=== PATIENT | male | born 1970 | race Two or more races ===

== ENCOUNTER → 2020-12-15 13:04 | Outpatient (BNVA) | payer MEDICARE, MEDICAID, SELFPAY | PROVIDERS: Visit Provider Internal Medicine | DX: J44.9 Chronic obstructive pulmonary disease, unspecified (principal); F17.200 Nicotine dependence, unspecified, uncomplicated | CPT/HCPCS: 99212 ==

== ENCOUNTER 2021-04-20 08:34 | Outpatient (REF) | payer MEDICARE, MEDICAID, SELFPAY ==
[2021-04-20 09:52] LABS: Alanine Aminotransferase 15 U/L (0-40); Albumin Level 4.5 g/dL (3.5-5.0); Alkaline Phosphatase 89 U/L (39-117); Anion Gap 12 (12-20); Aspartate Amino Transferase 17 U/L (5-37); Bilirubin Total 0.4 mg/dL (0.0-1.0); Blood Urea Nitrogen 16 mg/dL (9-16); Calcium 9.4 mg/dL (8.4-10.2); Carbon Dioxide 27 mmol/L (22-29); Chloride 108 mmol/L (96-108); Cholesterol 162 mg/dL; Estimated Glomerular Filt Rate > 60; Glucose Fasting 91 mg/dL (60-99); HDL Cholesterol 49 mg/dL; LDL Cholesterol Calculated 104 mg/dl; Potassium 4.5 mmol/L (3.3-5.1); Sodium 142 mmol/L (135-145); Total Protein 7.1 g/dL (6.5-8.0); Triglycerides 46 mg/dL
[2021-04-20 10:08] LABS: ~HepC Num1 0.06 S/CO (0.00-0.79); ~Hepatitis C Antibody Nonreactive (Nonreactive)
[2021-04-20 10:13] LABS: Hepatitis B Surface Antigen Negative (Negative)
[2021-04-20 10:15] LABS: HIV AB/AG Nonreactive (Nonreactive); HIV Num 1 0.04 S/CO (0.00-0.99)
[2021-04-20 10:33] LABS: Syphilis Screen Nonreactive (Nonreactive)
[2021-04-20 11:03] LABS: CT PCR NOT DETECTED (Not Detect.); NG PCR NOT DETECTED (Not Detect.)
== END 2021-04-20 08:35 | disposition home or self-care (01) ==
LOC: HO.LAB 08:34
PROVIDERS: PCP Family Medicine; Visit Provider Family Medicine
DX: Z01.84 Encounter for antibody response examination (principal); Z11.4 Encounter for screening for human immunodeficiency virus [HIV]; Z11.3 Encounter for screening for infections with a predominantly sexual mode of transmission; Z11.59 Encounter for screening for other viral diseases; I10 Essential (primary) hypertension
CPT/HCPCS: 80053; 80061; 86780; 86803; 87340; 87389; 87491; 87591

== ENCOUNTER 2021-04-27 08:04 | Outpatient (REF) | payer MEDICARE, MEDICAID, SELFPAY ==
--- NOTE | ~2021-04-27 | CT_ITS ---
EXAMINATION: CT ABDOMEN AND PELVIS WITH CONTRAST CLINICAL INFORMATION: Abdominal pain and weight loss COMPARISON: CT abdomen and pelvis with and without contrast 03/23/2015. TECHNIQUE: Multidetector volumetric images were obtained from the superior aspect of the liver through the pubic symphysis following administration 85 mL of Omnipaque 350 intravenous contrast. Sagittal and coronal reformatted images were obtained on the technologist's workstation. Oral contrast: No This CT examination was performed using dose optimization techniques as appropriate, variously including the following: *Automated exposure control *Adjustment of mA and/or kV according to patient size (this includes techniques or standardized protocols for targeted exams where dose is matched to indication/reason for exam; i.e. extremities or head) *Use of iterative reconstruction technique DLP: 374 mGy-cm FINDINGS: LUNG BASES: There is mild emphysematous changes in both lung bases. There is a irregular shaped lesion medial segment right lower lobe measuring 1.6 x 0.93 cm. It is new since the previous study. A 5 mm calcified granuloma right lower lobe is stable. The heart size is normal. LIVER, GALLBLADDER, AND BILIARY TREE: The liver is normal in size, shape, and attenuation. There is a 8 mm and 3 mm hypodensity segment 6, likely small cysts. It was not well visualized on 2015 exam.. No additional lesions seen. There is no intrahepatic ductal dilatation. The gallbladder is unremarkable with no evidence of radiopaque gallstones, gallbladder wall thickening, or obvious pericholecystic inflammatory changes. PANCREAS: Unremarkable. SPLEEN: Unremarkable. ADRENAL GLANDS: Unremarkable. KIDNEYS AND URETERS: There is partial nephrectomy lower pole right kidney. There are punctate 1-2 mm radiopaque calculi upper pole right kidney. There is mild right hydronephrosis and likely partial cyst post surgical changes along the midpole. They are stable. BLADDER: Unremarkable. GASTROINTESTINAL TRACT: There is scattered stool and gas seen throughout the colon without significant distention. There is oral contrast seen in the small bowel loops and colon. The appendix is not visualized. No inflammatory process or free fluid seen. ABDOMINAL WALL: No significant hernia is appreciated. LYMPH NODES: Normal. VASCULAR: Unremarkable. PELVIC VISCERA: The prostate gland is enlarged. The periprostatic fat planes are slightly blurred. No abnormal pelvic or inguinal lymph nodes seen. OSSEOUS STRUCTURES: There is a L4-L5 bony fusion with cage placement. Severe degenerative disc changes with loss of disc height and ventral spondylosis at the L5-S1 disc level is noted. CT/CT abdomen pelvis w con IMPRESSION: Right lower pole nephrectomy with mild hydronephrosis and punctate nonobstructive radiopaque calculi upper pole right kidney. Right renal cysts. New suspicious 1.6 cm lung nodule medial segment right lower lobe. Recommend further evaluation with CT chest and PET/CT exam.
[2021-04-27] MEDS: iohexoL 350 MG/ML 100 ML INFUS..BTL IV (11:00)
[2021-04-27] MEDS: Barium Sulfate Oral (Vanilla) 450 ML ORAL.SUSP 900 ML PO (11:01)
== END 2021-04-27 08:05 | disposition home or self-care (01) ==
LOC: HO.CT 08:04
PROVIDERS: Visit Provider Family Medicine
DX: R10.9 Unspecified abdominal pain (principal); R63.4 Abnormal weight loss
CPT/HCPCS: 74177; Q9967

== ENCOUNTER → 2021-04-28 11:01 | Outpatient (BNVA) | payer MEDICARE, MEDICAID, SELFPAY | PROVIDERS: PCP Family Medicine; Visit Provider Physician Assistant | DX: R10.9 Unspecified abdominal pain (principal) | CPT/HCPCS: 99202 ==

== ENCOUNTER → 2021-05-04 08:10 | Outpatient (BNVA) | payer MEDICARE, MEDICAID, SELFPAY | PROVIDERS: PCP Family Medicine; Visit Provider Physician Assistant | DX: R10.9 Unspecified abdominal pain (principal); R91.1 Solitary pulmonary nodule | CPT/HCPCS: 99212 ==

== ENCOUNTER 2021-05-16 15:17 | Outpatient (REF) | payer MEDICARE, MEDICAID, SELFPAY ==
--- NOTE | ~2021-05-16 | CT_ITS ---
EXAMINATION: CT CHEST WITH CONTRAST CLINICAL INFORMATION: Solitary pulmonary nodule. COMPARISON: CT abdomen 04/27/2021. CT chest 02/13/2018. TECHNIQUE: Multidetector volumetric CT imaging of the chest was obtained after the administration of 65 mL of Omnipaque 350 intravenous contrast without immediate adverse reactions. Axial MIP volume rendering provided. Sagittal and coronal reformatted images were obtained. This CT examination was performed using dose optimization techniques as appropriate, variously including the following: Automated exposure control Adjustment of mA and/or kV according to patient size (this includes techniques or standardized protocols for targeted exams where dose is matched to indication/reason for exam; i.e. extremities or head) Use of iterative reconstruction technique DLP: 124 mGy-cm FINDINGS: ENTERTAINMENT DANCER: Unremarkable. LUNGS: Innumerable scattered punctate calcified granulomas throughout both lungs are again noted. A triangular shaped 4 mm fissural lymph node along the horizontal fissure (series 5, image 15) is unchanged. There is an irregular, somewhat spiculated, 1.8 x 1.7 x 1.3 cm nodule in the medial aspect of the right lower lobe as noted on the prior CT abdomen from 04/27/2021 but not evident on the prior CT chest from 02/13/2018. Moderately severe panacinar and paraseptal emphysema is again noted. MEDIASTINUM: There are scattered coronary artery calcifications. There is no apparent mediastinal or hilar adenopathy. Thyroid gland is unremarkable. PLEURA: There is no pleural effusion. No pleural mass or thickening. AXILLA: No lymphadenopathy. UPPER ABDOMEN: A small cyst in the right lobe of the liver is again noted. There are punctate upper pole right renal calculi again seen. The upper abdominal structures are otherwise unremarkable. OSSEOUS STRUCTURES: There is stable mild multilevel degenerative disc disease. There are no suspicious osseous lesions. CT/CT chest w con IMPRESSION: A spiculated irregular 1.8 cm right lower lobe nodule is again identified, as noted on the recent CT. This remains suspicious for neoplasm. There are no additional suspicious lung nodules.
[2021-05-16] MEDS: iohexoL 350 MG/ML 100 ML INFUS..BTL IV (16:00)
== END 2021-05-16 15:18 | disposition home or self-care (01) ==
LOC: HO.CT 15:17
PROVIDERS: Visit Provider Family Medicine
DX: R91.1 Solitary pulmonary nodule (principal)
CPT/HCPCS: 71260; Q9967

== ENCOUNTER → 2021-05-18 15:12 | Outpatient (BNVA) | payer MEDICARE, MEDICAID, SELFPAY | PROVIDERS: PCP Family Medicine; Visit Provider Internal Medicine | DX: R91.1 Solitary pulmonary nodule (principal); J44.9 Chronic obstructive pulmonary disease, unspecified; F17.210 Nicotine dependence, cigarettes, uncomplicated; Z79.899 Other long term (current) drug therapy | CPT/HCPCS: 99212 ==

== ENCOUNTER 2021-05-20 07:54 | Outpatient (REF) | payer MEDICARE, MEDICAID, SELFPAY ==
--- NOTE | 2021-05-20 14:40 | PFT_ITS ---
Forced vital capacity is normal. FEV1 moderately decreased. [id number] is markedly decreased and MVV moderately decreased. Post bronchodilator therapy, there is only minimal improvement in FEV1 and [id number]. Total lung capacity and residual volume normal. Diffusion capacity is markedly decreased. CONCLUSION: There is a mild degree of obstructive airway disorder. Minimal improvement after bronchodilator therapy is noted. Marked decrease in diffusion capacity probably due to pulmonary emphysema. Clinical correlation recommended. MD ROCHELLE Gross/DINORAH / [id number]
== END 2021-05-20 07:55 | disposition home or self-care (01) ==
LOC: HO.RESP 07:54
PROVIDERS: PCP Family Medicine; Visit Provider Internal Medicine
DX: J44.9 Chronic obstructive pulmonary disease, unspecified (principal); R91.1 Solitary pulmonary nodule; F17.200 Nicotine dependence, unspecified, uncomplicated; Z71.6 Tobacco abuse counseling
CPT/HCPCS: 94060; 94727; 94729

== ENCOUNTER 2021-05-24 11:09 | Outpatient (REF) | payer MEDICARE, MEDICAID, SELFPAY ==
--- NOTE | ~2021-05-24 | PE_ITS ---
EXAMINATION: Fluorine-18 FDG PET/CT Scan CLINICAL INDICATION: Initial treatment management. Solitary pulmonary nodule. PROCEDURE: 61 minutes following the intravenous administration of 16.4 mCi of fluorine 18 FDG, images from the base of the skull to the mid thighs were obtained using a combined PET/CT scanner with CT scan based attenuation correction. No oral contrast was administered. No intravenous contrast was administered. Transverse, coronal, sagittal, and volume reconstruction projections were obtained. The patient's blood glucose as determined by a finger stick, was 89 mg/dl immediately prior to injection. Total CT exam dose-length product 680.99 mGy-cm * These CT images were obtained using dose optimization techniques as appropriate, variously including the following: Automated exposure control * Adjustment of mA and/or kV according to patient size (this includes techniques or standardized protocols for targeted exams where dose is matched to indication/reason for exam; i.e. extremities or head) * Use of iterative reconstruction technique COMPARISON: No previous PET/CT scan is available for comparison. CT scans of the chest dated 05/16/2021 and of the abdomen done pelvis dated 04/27/2021 are available for comparison. FINDINGS: (Slice numbers described in this report are numbered superiorly to inferiorly with slice #1 in the head) NECK AND VISUALIZED HEAD: No foci of abnormal FDG activity are noted. The distribution of FDG activity is physiological. There is no cervical lymphadenopathy. THORAX: There is mildly increased FDG activity associated with the previously identified irregular medial right lower lobe pulmonary nodule showing SUVmax 2.4, slice 121/267. On these nondiagnostic CT images this measures approximately 1.5 x 0.8 cm in largest transverse dimensions. It does not appear significantly changed from the 05/16/[address] scan. No additional foci of abnormal FDG activity are present in the lungs. A 0.4 cm fissural nodule visualized on that CT scan is not apparent on these nondiagnostic CT images. No additional pulmonary nodules are visualized. There is no pleural or pericardial fluid, or pneumothorax. There is a focus of mildly increased FDG activity associated with some skin thickening anteriorly in the left chest wall, and this is anterior to the medial aspect of the left second interspace. This subtle skin thickening was present on the recent 05/16/2021 CT scan. There is mildly increased FDG activity associated with several left axillary lymph nodes, the most prominent showing SUVmax 3.0, slice 100/267 corresponding to a lymph node on the CT images it measures 1.9 x 1.0 cm in largest transverse dimensions. An additional smaller FDG avid lymph node is present superior to this, slice 88/267. No additional mediastinal, supraclavicular, or axillary lymphadenopathy is present. ABDOMEN AND PELVIS: No foci of abnormal FDG activity are present in the abdomen or pelvis. The liver, gallbladder, spleen, adrenal glands and pancreas appear unremarkable. The patient is status post partial right nephrectomy, and the appearance of the right kidney is unchanged from the 04/27/2021 CT scan with hydronephrosis of moderate severity present on the right, unchanged from 04/27/2021. The left kidney is unremarkable. There is mild diffuse FDG activity throughout the gastrointestinal tract without a suspicious focal component. There is no retroperitoneal, mesenteric, pelvic or inguinal lymphadenopathy. The pelvic organs are unremarkable. MUSCULOSKELETAL: There are no foci of abnormal FDG activity in the osseous structures. L4-L5 bony fusion with disc cage placement is noted, with no associated abnormal FDG activity. There are mild degenerative changes in the spine but no suspicious sclerotic or lytic lesions are visualized. VASCULAR: A few scattered vascular calcifications are noted. PET/PET CT fusion skull to thigh IMPRESSION: 1. Mild FDG activity associated with the irregular medial right lower lobe pulmonary nodule is suspicious for malignancy. Biopsy is recommended, if clinically indicated. 2. There is an FDG avid focus of skin thickening in the anterior left upper chest wall as well as a few mildly FDG avid left axillary lymph nodes. These are nonspecific and could be due to a focal inflammatory lesion in the scan, but a cutaneous malignancy at this site cannot be ruled out. Correlation with direct visualization of the skin lesion is recommended for initial follow-up. 3. No additional abnormalities suspicious for other metastatic or malignant lesions are noted. 4. Postsurgical changes and hydronephrosis in the right kidney.
== END 2021-05-24 11:10 | disposition home or self-care (01) ==
LOC: HO.PET 11:09
PROVIDERS: PCP Family Medicine; Visit Provider Surgery
DX: Z13.89 Encounter for screening for other disorder (principal)

== ENCOUNTER 2021-05-30 14:24 | Outpatient (REF) | payer MEDICARE, MEDICAID, SELFPAY ==
--- NOTE | ~2021-05-30 | XR_ITS ---
EXAMINATION: XR CHEST CLINICAL INFORMATION: Nicotine dependence COMPARISON: PET/CT May 24, 2021, chest CT May 16, 2021 and chest x-ray July 14, 2016 TECHNIQUE: 2 views of the chest were obtained. FINDINGS: Cardiac silhouette is normal in size. The lungs are adequately aerated. There is no lobar consolidation. No pleural effusion or pneumothorax. Mild degenerative changes of the spine. XR/XR chest 2V IMPRESSION: No acute pulmonary pathology.
== END 2021-05-30 14:25 | disposition home or self-care (01) ==
LOC: HO.US 14:24
PROVIDERS: PCP Family Medicine; Visit Provider Family Medicine
DX: K42.9 Umbilical hernia without obstruction or gangrene (principal); R10.30 Lower abdominal pain, unspecified; F17.200 Nicotine dependence, unspecified, uncomplicated
CPT/HCPCS: 71046

== ENCOUNTER → 2021-06-03 09:03 | Outpatient (BNVA) | payer MEDICARE, MEDICAID, SELFPAY | PROVIDERS: PCP Family Medicine; Visit Provider Surgery | DX: R91.1 Solitary pulmonary nodule (principal); F17.210 Nicotine dependence, cigarettes, uncomplicated; Z79.899 Other long term (current) drug therapy | CPT/HCPCS: 99212 ==

== ENCOUNTER → 2021-06-16 13:32 | Outpatient (BNVA) | payer MEDICARE, MEDICAID, SELFPAY | PROVIDERS: PCP Family Medicine; Visit Provider Internal Medicine | DX: J44.9 Chronic obstructive pulmonary disease, unspecified (principal); R91.1 Solitary pulmonary nodule; F17.200 Nicotine dependence, unspecified, uncomplicated | CPT/HCPCS: 99212 ==

== ENCOUNTER → 2021-07-13 13:23 | Outpatient (BNVA) | payer MEDICARE, MEDICAID, SELFPAY | PROVIDERS: PCP Family Medicine; Visit Provider Internal Medicine | DX: J44.9 Chronic obstructive pulmonary disease, unspecified (principal); R91.1 Solitary pulmonary nodule; F17.200 Nicotine dependence, unspecified, uncomplicated | CPT/HCPCS: Q3014 ==

== ENCOUNTER 2021-09-05 10:13 | Outpatient (REF) | payer MEDICARE, MEDICAID, SELFPAY ==
--- NOTE | ~2021-09-05 | MR_ITS ---
MR LUMBAR SPINE WITHOUT IV CONTRAST CLINICAL INFORMATION: POST LAMINECTOMY SYNDROME SEVERE LBP COMPARISON: Lumbar spine MRI 02/21/2018. TECHNIQUE: MRI of the lumbar spine was obtained using routine sequences without contrast. FINDINGS: There are 5 nonrib-bearing lumbar-type vertebral bodies. There is grade 1 retrolisthesis of L2 on L3 and L3 on L4. Postsurgical interbody cages at L4-L5. Modic type I endplate signal changes at L3-L4 and Modic type I and Modic type II endplate signal changes at L5-S1. There is no additional bone marrow edema. There are no acute fractures. Vertebral body heights are maintained. The conus terminates at the T12-L1 level. Right-sided hydronephrosis associated with right renal atrophy again noted and better demonstrated on prior CT imaging. L1-L2: Disc contour is normal. No central canal stenosis and no foraminal stenosis. L2-L3: There is grade 1 retrolisthesis. There is a diffuse annular disc bulge with a superimposed new left lateral disc protrusion that contacts the extraforaminal left L2 nerve root. No central canal stenosis. Mild foraminal encroachment bilaterally. L3-L4: Grade 1 retrolisthesis. Diffuse annular disc bulge and mild bilateral facet arthropathy. No central canal stenosis. There is mild foraminal encroachment bilaterally. L4-L5: Solid interbody fusion. Moderate bilateral facet arthropathy and ligamentum flavum thickening. No central canal stenosis and no foraminal stenosis. L5-S1: Diffuse disc osteophyte complex with a superimposed shallow left paracentral disc protrusion that results in similar mass effect on the traversing left S1 nerve root within the left subarticular zone. Disc osteophyte and facet arthropathy result in unchanged moderate left and moderate to severe right foraminal stenosis with mass effect on the exiting right greater than left L5 nerve roots. Disc osteophyte also results in similar mass effect on the extraforaminal left greater than right L5 nerve roots. MR/MR lumbar spine wo con IMPRESSION: - At L5-S1, a shallow left paracentral disc protrusion that results in similar mass effect on the traversing left S1 nerve root within the left subarticular zone. Spondylitic changes at L5-S1 result in stable moderate left and moderate to severe right foraminal stenosis with mass effect on the exiting right greater than left L5 nerve roots. Disc osteophyte also results in similar mass effect on the extraforaminal left greater than right L5 nerve roots. - At L4-L5, there are postoperative changes following interbody cage placement no central canal stenosis and no foraminal stenosis at the postoperative level. - At L2-L3, there is a new left lateral disc protrusion that contacts the extraforaminal left L2 nerve root. - Right-sided hydronephrosis associated with right renal atrophy again noted and better demonstrated on prior CT imaging.
== END 2021-09-05 10:14 | disposition home or self-care (01) ==
LOC: HO.MRI 10:13
PROVIDERS: PCP Family Medicine; Visit Provider Family Medicine
DX: M96.1 Postlaminectomy syndrome, not elsewhere classified (principal)
CPT/HCPCS: 72148

== ENCOUNTER → 2021-10-27 09:45 | Outpatient (BNVA) | payer MEDICARE, MEDICAID, SELFPAY | PROVIDERS: PCP Family Medicine; Visit Provider Nurse Practitioner Family | DX: M96.1 Postlaminectomy syndrome, not elsewhere classified (principal); M47.27 Other spondylosis with radiculopathy, lumbosacral region; M53.3 Sacrococcygeal disorders, not elsewhere classified; M79.18 Myalgia, other site; M48.061 Spinal stenosis, lumbar region without neurogenic claudication; M54.51 Vertebrogenic low back pain | CPT/HCPCS: 99202 ==

== ENCOUNTER → 2021-11-09 13:26 | Outpatient (BNVA) | payer MEDICARE, MEDICAID, SELFPAY | PROVIDERS: PCP Family Medicine; Visit Provider Internal Medicine | DX: J44.9 Chronic obstructive pulmonary disease, unspecified (principal); R91.1 Solitary pulmonary nodule; F17.210 Nicotine dependence, cigarettes, uncomplicated | CPT/HCPCS: 94010; 99212 ==

== ENCOUNTER → 2021-11-24 08:47 | Outpatient (BNVA) | payer MEDICARE, MEDICAID, SELFPAY | PROVIDERS: PCP Family Medicine; Visit Provider Nurse Practitioner Family | DX: M54.51 Vertebrogenic low back pain (principal); M48.061 Spinal stenosis, lumbar region without neurogenic claudication; M79.18 Myalgia, other site; M53.3 Sacrococcygeal disorders, not elsewhere classified; M47.27 Other spondylosis with radiculopathy, lumbosacral region; M96.1 Postlaminectomy syndrome, not elsewhere classified | CPT/HCPCS: 99212 ==

== ENCOUNTER 2021-12-16 12:29 | Outpatient (REF) | payer MEDICARE, MEDICAID, SELFPAY ==
--- NOTE | ~2021-12-16 | CT_ITS ---
EXAMINATION: CT CHEST WITHOUT CONTRAST CLINICAL INFORMATION: Solitary pulmonary nodule. COMPARISON: Chest CT from 05/16/2021. PET/CT from 05/24/2021. TECHNIQUE: Multidetector volumetric CT imaging of the chest was done. Axial MIP volume rendering provided. Sagittal and coronal reformatted images were obtained. This CT examination was performed using dose optimization techniques as appropriate, variously including the following: *Automated exposure control *Adjustment of mA and/or kV according to patient size (this includes techniques or standardized protocols for targeted exams where dose is matched to indication/reason for exam; i.e. extremities or head) *Use of iterative reconstruction technique DLP: 146. mGy-cm FINDINGS: TITLE EXAMINER: Unremarkable. LUNGS: The central airways are patent. There is moderate centrilobular and paraseptal emphysema. No dense consolidation. At the location of the previous central right lower lobe pulmonary nodule, there is significant improvement. No residual nodule with mild bandlike appearance. This could represent scarring or atelectasis. No residual nodule. Calcified granulomata present. No new pulmonary nodule or mass. MEDIASTINUM: Normal heart size. No pericardial effusion. Coronary artery calcifications are present. No mediastinal lymphadenopathy. PLEURA: There is no pleural effusion. No pleural mass or thickening. No pneumothorax. AXILLA: No lymphadenopathy. UPPER ABDOMEN: No acute or suspicious abnormality. Right upper pole 0.3 cm renal calculi which are 8 cm from the posterior axillary line. OSSEOUS STRUCTURES: No acute or suspicious osseous abnormality. Degenerative changes of the spine. CT/CT chest wo con IMPRESSION: Improvement of the previous right lower lobe pulmonary nodule. Minimal residual stranding in the area may represent scarring or atelectasis. No suspicious pulmonary nodule identified. Moderate emphysema. Fleischner guidelines were followed.
== END 2021-12-16 12:30 | disposition home or self-care (01) ==
LOC: HO.CT 12:29
PROVIDERS: Visit Provider Surgery
DX: R91.1 Solitary pulmonary nodule (principal)
CPT/HCPCS: 71250

== ENCOUNTER → 2022-01-13 09:02 | Outpatient (BNVA) | payer MEDICARE, MEDICAID, SELFPAY | PROVIDERS: PCP Family Medicine; Visit Provider Surgery | DX: R91.1 Solitary pulmonary nodule (principal); F17.200 Nicotine dependence, unspecified, uncomplicated | CPT/HCPCS: 99212 ==

== ENCOUNTER → 2022-05-10 13:05 | Outpatient (BNVA) | payer MEDICARE, MEDICAID, SELFPAY | PROVIDERS: PCP Family Medicine; Visit Provider Internal Medicine | DX: J44.9 Chronic obstructive pulmonary disease, unspecified (principal); R91.1 Solitary pulmonary nodule; F17.200 Nicotine dependence, unspecified, uncomplicated | CPT/HCPCS: 99212 ==

== ENCOUNTER 2022-08-07 14:03 | Outpatient (REF) | payer MEDICARE, MEDICAID, SELFPAY ==
--- NOTE | ~2022-08-07 | US_ITS ---
EXAMINATION: US SUPRAPUBIC ANTERIOR ABDOMINAL WALL, LIMITED/FOLLOW UP CLINICAL INFORMATION: 5 mm nodule suprapubic region. COMPARISON: CT scan abdomen and pelvis 04/27/2021. TECHNIQUE: Ultrasound soft tissues suprapubic region. FINDINGS: Targeted ultrasound images were obtained by the egg and spice mixer of the area of concern as indicated by the patient in the suprapubic region and demonstrated a 0.3 x 0.2 x 0.2 cm superficial echogenic shadowing focus, possibly a small calcification. Radiologist was not in attendance. Images were later provided for interpretation. The egg and spice mixer stated patient states shooting pain to right hip when scanning area . US/US pelvic limited IMPRESSION: Small 0.3 cm echogenic shadowing focus in the area of concern indicated by the patient in the suprapubic region, possibly a small calcification. The egg and spice mixer stated patient states shooting pain to right hip when scanning area . Decisions regarding further management should be based on the clinical assessment.
== END 2022-08-07 14:04 | disposition home or self-care (01) ==
LOC: HO.US 14:03
PROVIDERS: PCP Family Medicine; Visit Provider Emergency Medicine
DX: R31.0 Gross hematuria (principal)
CPT/HCPCS: 76857

== ENCOUNTER → 2022-09-20 13:20 | Outpatient (BNVA) | payer MEDICARE, MEDICAID, SELFPAY | PROVIDERS: PCP Family Medicine; Visit Provider Internal Medicine | DX: J44.9 Chronic obstructive pulmonary disease, unspecified (principal); R91.1 Solitary pulmonary nodule; F17.210 Nicotine dependence, cigarettes, uncomplicated; Z79.899 Other long term (current) drug therapy | CPT/HCPCS: 99212 ==

== ENCOUNTER → 2022-11-20 13:21 | Outpatient (BNVA) | payer MEDICARE, MEDICAID, SELFPAY | PROVIDERS: PCP Family Medicine; Visit Provider Internal Medicine | DX: J44.9 Chronic obstructive pulmonary disease, unspecified (principal); R91.1 Solitary pulmonary nodule; F17.210 Nicotine dependence, cigarettes, uncomplicated | CPT/HCPCS: 99212 ==

== ENCOUNTER → 2022-12-08 13:43 | Outpatient (BNVA) | payer MEDICARE, MEDICAID, SELFPAY | PROVIDERS: PCP Family Medicine; Visit Provider Nurse Practitioner Family | DX: N40.0 Benign prostatic hyperplasia without lower urinary tract symptoms (principal); N52.1 Erectile dysfunction due to diseases classified elsewhere; E11.69 Type 2 diabetes mellitus with other specified complication; Z90.5 Acquired absence of kidney; Z87.448 Personal history of other diseases of urinary system | CPT/HCPCS: 99202 ==

== ENCOUNTER 2022-12-28 08:12 | Outpatient (REF) | payer MEDICARE, MEDICAID, SELFPAY ==
--- NOTE | ~2022-12-28 | US_ITS ---
EXAMINATION: US RETROPERITONEAL COMPLETE (RENAL) CLINICAL INFORMATION: Benign prostatic hyperplasia without lower urinary tract symptoms. History of partial right nephrectomy lower pole. COMPARISON: CT abdomen and pelvis 04/27/2021. TECHNIQUE: Real-time imaging of the kidneys and bladder. FINDINGS: RIGHT KIDNEY: 7.1 x 4.6 x 4.7 cm (SAG x AP x TRV). Surgical changes right lower pole consistent with history of partial nephrectomy. There a parapelvic simple cyst in the central kidney for which no imaging follow-up is recommended. There is a 9 mm simple cyst in the mid kidney for which no imaging follow-up is recommended. There is chronic mild caliectasis of the right kidney which is similar compared to prior imaging. LEFT KIDNEY: 12.7 x 5.9 x 5.9 cm (SAG x AP x TRV). The kidney is normal in size, contour, and echogenicity. Renal cortical thickness is normal. No renal calculi or hydronephrosis. There are multiple simple cysts in the left kidney, the largest measuring 1.0 cm. No imaging follow-up is recommended. BLADDER: Well distended. Bilateral ureteral jets are demonstrated. Prevoid bladder volume is 169.8 mL. Postvoid bladder volume is 5.7 mL. There is mild bladder wall thickening. Prostate volume 29.7 mL. US/US retroperitoneal comp IMPRESSION: Mild circumferential bladder wall thickening which may reflect changes of cystitis or bladder outlet physiology. No discrete bladder wall mass. Mildly enlarged prostate. Postoperative changes right lower kidney.
[2022-12-28 09:19] LABS: Prostate Specific Antigen 0.75 ng/mL (<0.05-4.0)
== END 2022-12-28 08:13 | disposition home or self-care (01) ==
LOC: HO.US 08:12
PROVIDERS: PCP Family Medicine; Visit Provider Nurse Practitioner Family
DX: Z12.5 Encounter for screening for malignant neoplasm of prostate (principal); N40.0 Benign prostatic hyperplasia without lower urinary tract symptoms; E11.69 Type 2 diabetes mellitus with other specified complication; N52.1 Erectile dysfunction due to diseases classified elsewhere; Z87.448 Personal history of other diseases of urinary system; Z90.5 Acquired absence of kidney
CPT/HCPCS: 36415; 76770; 84153

== ENCOUNTER 2023-01-10 10:19 | Outpatient (REF) | payer MEDICARE, MEDICAID, SELFPAY ==
--- NOTE | ~2023-01-10 | CT_ITS ---
EXAMINATION: CT CHEST WITHOUT CONTRAST CLINICAL INFORMATION: Follow-up pulmonary nodule COMPARISON: Previous chest CT most recent December 2021 TECHNIQUE: Multidetector volumetric CT imaging of the chest was done. Axial MIP volume rendering provided. Sagittal and coronal reformatted images were obtained. This CT examination was performed using dose optimization techniques as appropriate, variously including the following: *Automated exposure control *Adjustment of mA and/or kV according to patient size (this includes techniques or standardized protocols for targeted exams where dose is matched to indication/reason for exam; i.e. extremities or head) *Use of iterative reconstruction technique DLP: 238 mGy-cm FINDINGS: LUNGS: There is evidence of emphysema. There are stable small calcified pulmonary nodules suggestive of calcified granulomas. The largest measures 5 mm at the right lung base axial image 4:30 series 5. This is adjacent to an accessory fissure and may represent a pleural lymph node. There is a 5 mm noncalcified right lower lobe nodule axial image 289 series 5. This is increased from 3 mm December 2021 exam. There is a 4 mm triangular-shaped right middle lobe nodule adjacent to the minor fissure axial 9 series 5 that is stable. There is interval decrease in scarring seen in the medial right lower lobe in the area of previous abnormal parenchymal density seen on April 2021. No endobronchial or endotracheal lesion. MEDIASTINUM: The mediastinum is normal. CORONARY ARTERY CALCIFICATION: Moderate PLEURA: There is no pleural effusion. No pleural mass or thickening. AXILLA: No lymphadenopathy. UPPER ABDOMEN: Right renal stones. Question postsurgical change to the lower right kidney. OSSEOUS STRUCTURES: Degenerative changes of the spine. CT/CT chest wo IV con IMPRESSION: Emphysema. Increasing now 5 mm noncalcified right lower lobe nodule, question representing a subpleural lymph node adjacent to an accessory fissure. Interval decrease in scarring in the right medial lower lobe. Multiple small stable calcified pulmonary nodules probably representing calcified granulomas. Fleischner guidelines were followed.
== END 2023-01-10 10:20 | disposition home or self-care (01) ==
LOC: HO.CT 10:19
PROVIDERS: PCP Family Medicine; Visit Provider Surgery
DX: R91.1 Solitary pulmonary nodule (principal)
CPT/HCPCS: 71250

== ENCOUNTER → 2023-01-12 09:26 | Outpatient (BNVA) | payer MEDICARE, MEDICAID, SELFPAY | PROVIDERS: PCP Family Medicine; Visit Provider Surgery | DX: R91.1 Solitary pulmonary nodule (principal); F17.210 Nicotine dependence, cigarettes, uncomplicated | CPT/HCPCS: 99212 ==

== ENCOUNTER → 2023-01-24 11:18 | Outpatient (BNVA) | payer MEDICARE, MEDICAID, SELFPAY | PROVIDERS: PCP Family Medicine; Visit Provider Nurse Practitioner Family | DX: N28.1 Cyst of kidney, acquired (principal); N40.0 Benign prostatic hyperplasia without lower urinary tract symptoms; Z90.5 Acquired absence of kidney | CPT/HCPCS: 51798; 99212 ==

== ENCOUNTER → 2023-02-22 13:15 | Outpatient (BNVA) | payer MEDICARE, MEDICAID, SELFPAY | PROVIDERS: PCP Family Medicine; Visit Provider Internal Medicine | DX: J44.9 Chronic obstructive pulmonary disease, unspecified (principal); R91.1 Solitary pulmonary nodule; F17.210 Nicotine dependence, cigarettes, uncomplicated | CPT/HCPCS: 99212 ==

== ENCOUNTER 2023-04-13 09:48 | Outpatient (REF) | payer MEDICARE, MEDICAID, SELFPAY ==
--- NOTE | ~2023-04-13 | CT_ITS ---
EXAMINATION: CT CHEST WITHOUT CONTRAST CLINICAL INFORMATION: 52-year-old male with solitary pulmonary nodule COMPARISON: 01/10/2023 TECHNIQUE: Multidetector volumetric CT imaging of the chest was done. Axial MIP volume rendering provided. Sagittal and coronal reformatted images were obtained. This CT examination was performed using dose optimization techniques as appropriate, variously including the following: *Automated exposure control *Adjustment of mA and/or kV according to patient size (this includes techniques or standardized protocols for targeted exams where dose is matched to indication/reason for exam; i.e. extremities or head) *Use of iterative reconstruction technique DLP: 238 mGy-cm FINDINGS: DITCHER: Unremarkable LUNGS: There are emphysematous changes with flattening of the diaphragm and a few scattered punctate calcified nodules seen. There are no solid or groundglass opacity nodules. There is stable fissure base nodule in the right middle lobe measured 0.4 cm on image 37 series 4 and there is stable examination right lower lobe partially calcified 0.4 cm nodule seen on image 37 series 4. There are no new nodules identified. Central airways are patent. MEDIASTINUM: There is mild nondiagnostic mediastinal lymphadenopathy aorta is ectatic measured 4.1 cm in the aortic. CORONARY ARTERY CALCIFICATION: None visualized on this study. PLEURA: There is no pleural effusion. No pleural mass or thickening. Moderate coronary artery calcifications present. AXILLA: No lymphadenopathy. UPPER ABDOMEN: Calcified stones with no evidence of obstruction seen in the right kidney. OSSEOUS STRUCTURES: Unremarkable. CT/CT chest wo IV con IMPRESSION: 1. Stable benign-appearing lung nodules. 2. Emphysematous changes. 3. Right nephrolithiasis. 4. Ectasia of ascending aorta. 5. Coronary artery calcifications. Fleischner guidelines were followed.
== END 2023-04-13 09:49 | disposition home or self-care (01) ==
LOC: HO.CT 09:48
PROVIDERS: PCP Family Medicine; Visit Provider Surgery
DX: R91.1 Solitary pulmonary nodule (principal)
CPT/HCPCS: 71250

== ENCOUNTER 2023-04-20 08:48 | Outpatient (AMB) | payer MEDICARE, MEDICAID, SELFPAY ==
--- NOTE | 2023-04-20 09:17 | MHC.OFFVIS ---
Intake Vital Signs 04/20/23 09:24 Height 5 ft 8 in Weight 158 lb 11.725 oz BMI 24.1 BP 110/70 Blood Pressure Location Lt brachial Position Sitting Pulse 78 Pulse Oximetry (%) 98 Intake Visit Reasons: 3 Month Follow Up Allergies pravastatin Allergy (Verified 04/20/23 09:25) myalgias Medication List - Last Reconciled 04/20/23 by Mik Neff MD doxazosin 2 mg PO BEDTIME fluticasone propion-salmeterol 250-50 mcg/dose (Advair Diskus) 1 ea inhalation BID gabapentin 300 mg PO TID lisinopril 40 mg PO DAILY rosuvastatin 5 mg PO DAILY umeclidinium 62.5 mcg/actuation (Incruse Ellipta) 1 inh inhalation DAILY Ventolin HFA 90 mcg/actuation (albuterol sulfate) 2 puffs inhalation Q4-6H PRN 30 days NS HPI 3 Month Follow Up HPI Details 52-year-old male who had a follow-up CT scan done on 05/16/2021 which showed a 1.8 cm persistent right lower lobe pulmonary nodule seen previously on abdominal CT scan and possibly some right hilar lymphadenopathy.? He also had been experiencing some weight loss and abdominal pain and for those reasons I arranged for him to have a PET scan and pulmonary function testing.? The pulmonary function testing was done on 05/20/2021 showing an FEV1 of 68% of predicted going up to 77% of predicted with bronchodilators and a DLCO VA of 49% of predicted.? PET scan was done on 05/24/2021 showed mild increased uptake within the nodule itself SUV max 2.4 as well as increased uptake within the left anterior chest wall and left axillary lymph nodes.? He reports that he developed a pimple he calls it in the left anterior chest wall correlating with the CT scan and PET scan about 3 weeks ago.? He denies any pain.? Since then, he has had a CT scan on 12/16/2021 and most recently on 01/10/2023 both of which actually showed resolution of the nodule that we were following medially in the right lower lobe however looking back at serial CT scans there is a developing nodule that was tiny on his 1st imaging and now has increased to my eye to about 6 mm in size with smooth border.? There is no mediastinal lymphadenopathy and no pleural fluid. I reviewed his most recent CT scan which was done on 04/13/2023. To my interpretation as there is no read as of yet the smooth bordered 6 mm nodule in the right lower lobe has not changed. There is no new nodules and there is no mediastinal lymphadenopathy and no pleural fluid. He has been trying to stop smoking and using the lozenges he has been able to cut down quite significantly. He actually has not had a cigarette in about 15 days but says that he feels very anxious without them. We discussed continue with the lozenges a using gum sometimes as well. We spent about 4 minutes discussing smoking cessation and he is going to continue to try and persist and stop completely. Other than above, 12 point review of systems was done and documented separately in the office chart with detailed social and family history. ? ? PFSH Medical History COPD (chronic obstructive pulmonary disease) Kidney cyst, acquired Pulmonary nodule Smoker Surgical History History of appendectomy (~10/1998) History of lumbar fusion History of partial nephrectomy (~09/1998) Social History Patient Tobacco Use Status: Current everyday Tobacco user Tobacco use type: Cigarette Cigarette Packs Per Day: 0.5 Cigarettes Per Day: 7 Years Smoked: 36 (onset 14, 1ppd x 36yr 35+PYH) Physical Exam Vital Signs: Last Vital Signs Pulse 78 04/20/23 09:24 BP 110/70 04/20/23 09:24 Pulse Ox 98 04/20/23 09:24 BMI result Body Mass Index 24.1 General: No acute distress HEENT: Moist mucous membranes, normocephalic, pupils equal round and reactive to light. Neck: No thyromegaly, supple, no JVD Lymph: No cervical, supraclavicular, or other lymphadenopathy Chest: No chest wall abnormalities or deformities Heart: Regular rate and rhythm Lungs: Clear to auscultation bilaterally Abdomen: Soft, nontender, normal bowel sounds Extremities: No edema, cyanosis, or clubbing. Full range of motion Neuro: Grossly intact, alert and oriented x3, and nonfocal Skin: Warm and dry no rashes Affect: Normal Assessment & Plan Assessment & Plan (1) Pulmonary nodule: Comment: (1.8 x 1.7 x 1.3 cm RLL spiculated nodule - STATUS POST. NAVIGATIONAL BRONCHOSCOPY AND BIOPSY, NEGATIVE FOR MALIGNANCY. Will continue to have Annual screening. Code(s): R91.1 - Solitary pulmonary nodule Plan: The initial nodule there were following has resolved however there is a 6 mm smooth bordered pulmonary nodule in the right lower lobe that we are currently following and has been stable now since his previous CT scan still at 6 mm with smooth borders. I discussed pulmonary nodules with him in general and how their size, shape, and change management coordinator time affect are level of suspicion for malignancy. I did relate to him that this is a very encouraging CT scan but would need to continue to follow this relatively closely. Plan then will be for a six-month follow-up CT scan of the chest and a visit with me after that. (2) Smoker: Comment: HISTORY OF SMOKING SINCE AGE 14. HE DID NOT USE NICOTINE PATCH. TRYING TO QUIT ON HIS OWN. SMOKES ABOUT 7-10 CIGARETTES A DAY. ONCE AGAIN I STRESSED THAT HE MUST QUIT SMOKING, OTHERWISE COPD MARLY;L CONT. TO GET WORSE , AND HE WILL CONTINUE TO HAVE HIGH RISK FOR LUNG CANCER. HE SHOULD ALSO CONTINUE TO PARTICIPATE IN ANNUAL LUNG SCREENING PROGRAM. Code(s): F17.200 - Nicotine dependence, unspecified, uncomplicated Plan: 4 minutes smoking cessation see above. Orders: Orders CT chest wo IV con 6 Months R91.1 - Solitary pulmonary nodule Coding Level of Care Code Est Pt Level 4 (56174) Diagnoses Pulmonary nodule R91.1 Smoker F17.200 Comment Smoking cessation 4 minutes please bill
[2023-04-20 09:24] VITALS: BP 110/70; PULSE 78; O2SAT 98; BMI 24.1
== END 2023-04-20 09:29 | disposition home or self-care (01) ==
PROVIDERS: PCP Family Medicine; Visit Provider Surgery
DX: R91.1 Solitary pulmonary nodule (principal); F17.200 Nicotine dependence, unspecified, uncomplicated

== ENCOUNTER → 2023-04-20 08:48 | Outpatient (BNVA) | payer MEDICARE, MEDICAID, SELFPAY | PROVIDERS: Visit Provider Surgery | DX: R91.1 Solitary pulmonary nodule (principal); F17.210 Nicotine dependence, cigarettes, uncomplicated; Z71.6 Tobacco abuse counseling | CPT/HCPCS: 99212 ==

== ENCOUNTER → 2023-05-29 13:46 | Outpatient (REF) | payer MEDICARE, MEDICAID, SELFPAY ==
--- NOTE | 2023-05-29 13:48 | CA_ITS ---
Transthoracic Echocardiogram Patient (Last, First, Middle): Gino Jang, Gender: Male Date of : 1970 Age: 52 Procedure Date: 05/29/2023 Procedure Type: Transthoracic Echocardiogram Location: OP Height: 175.26 cm Weight: 75.75 kg BSA: 1.91 m2 Heart Rate: 58 bpm BP: 135 / 80 mmHg Show Design Supervisor: GARCIA Referring MD: Ondina Hylton MD Symptoms: I77.810 ASCENDING AORTA DILATION Study Quality: Adequate ECG Rhythm: Bradycardia Conclusions: - The left ventricular systolic function is normal. The calculated ejection fraction is 61% by biplane method. - Mild biatrial enlargement. - No obvious valvular pathology seen on this study. - There is mild dilatation of the sinuses of Valsalva measuring 4.50 cm and mild dilatation of the ascending aorta measuring 4.10 cm. Findings Left Ventricle Normal left ventricular cavity size. There is normal left ventricular wall thickness. The left ventricular systolic function is normal. The calculated ejection fraction is 61% by biplane method. There is no evidence of regional wall motion abnormalities. Diastolic function is normal for age. LV peak GLS -20.1%. Right Ventricle Mildly increased right ventricular cavity size. Atria Mild biatrial enlargement. Aortic Valve There is a normal trileaflet aortic valve. There is no aortic valve stenosis. There is no aortic valve regurgitation. Mitral Valve The mitral valve appears normal. There is no mitral valve regurgitation. There is no mitral valve stenosis. Pulmonic Valve The pulmonic valve is likely normal. Tricuspid Valve Normal tricuspid valve structure. There is trace tricuspid valve regurgitation. There is no evidence of pulmonary hypertension. Great Vessels There is mild dilatation of the sinuses of Valsalva measuring 4.50 cm and mild dilatation of the ascending aorta measuring 4.10 cm. Possible plaque at sinu tubular ridge, but not well seen. Venous The inferior vena cava is normal in size and collapses greater than 50% with inspiration. Pericardium/Pleural There is no evidence of pericardial effusion. Prior Study Comparison No prior study available for comparison. Reporting delayed due to technical issues. Recommendations, Care & Conclusions No obvious valvular pathology seen on this study. Measurements 2D Linear Measurements IVSd: 1.00 0.6-0.9/0.6-1.0 cm LVIDd: 4.80 3.9-5.3/4.2-5.9 cm LVIDd Index: 2.51 2.4-3.2/2.2-3.1 cm/m2 LVIDs: 3.40 2.0-3.6 cm LVPWd: 0.90 0.7-1.1 cm LA Diam: 3.60 2.7-3.8/3.0-4.0 cm LAIDs Index: 1.88 1.5-2.3 cm/m2 LV Mass: 197.78 67-162/88-224 g LV Mass Index: 103.55 43-95/49-115 g/m2 LVOT Diam: 2.40 3.0+(-)1.3 cm 2D Systolic Function EF 4C: 59.50 >55% EF 2C: 59.70 >55% EF BiP: 60.70 >55% Mitral Valve MV Pk E: 0.91 MV PK A: 0.71 MV Decel Time: 214.00 E/A: 1.30 E'Lateral: 14.60 E'Medial: 9.90 E/E' Med: 9.20 E/E' Lat: 6.30 PHT: 63.00 MVA PHT: 3.49 Decel [place]: 4.27 Aortic Valve AoV Pk Lino: 1.62 AoV Mn Lino: 1.09 AoV VTI: 0.36 AoV Pk Grad: 10.00 Aov Mn Grad: 6.00 JARET Cont.VTI: 4.09 LVOT LVOT Pk Lino: 1.51 LVOT Mn Lino: 0.95 LVOT VTI: 0.33 LVOT Pk Grad: 9.00 LVOT Mn Grad: 4.00 LVOT Diam: 2.40 LVOT Area: 4.52 Diastolic Function MV Pk E: 0.91 MV Pk A: 0.71 E/A: 1.30 E'Medial: 9.90 E/E' Med: 9.20 E' Laterial: 14.60 E/E' Lat: 6.30 Right Ventricle TAPSE (mm): 21.30 TVS' Lino: 9.90 Tricuspid Valve TR Pk Lino: 2.37 TR Pk Grad: 22.00 RA Press: 3.00 RVSP: 25.00 Great Vessels Aorta Sinus of Valsalva: 4.50 2.0-3.5 cm Ao Asc: 4.10 2.1-3.4 cm Pulmonary Valve PV Pk Lino: 1.14 Peak PV Grad: 5.00 Updated in Other Vendor System with Status of Final Jayme Payton MD electronically signed on 06/02/2023 11:02:24 AM with status of Final
== END ==
LOC: HO.CARD 13:46
PROVIDERS: PCP Family Medicine; Visit Provider Family Medicine
DX: I77.810 Thoracic aortic ectasia (principal)
CPT/HCPCS: 93306; 93356

== ENCOUNTER → 2023-05-29 13:48 | Outpatient (BNV) | payer MEDICARE, MEDICAID, SELFPAY | PROVIDERS: PCP Family Medicine; Visit Provider Internal Medicine | DX: I77.810 Thoracic aortic ectasia (principal) | CPT/HCPCS: 93306 ==

== ENCOUNTER 2023-08-07 12:37 | Outpatient (REF) | payer MEDICARE, MEDICAID, SELFPAY ==
--- NOTE | ~2023-08-07 | XR_ITS ---
EXAMINATION: XR KNEE, LEFT CLINICAL INFORMATION: Chronic pain of left knee medial anterior COMPARISON: None available. TECHNIQUE: AP, lateral and 2 AP axial views of the left knee. FINDINGS: Tiny anterior superior patellar spur. Small joint effusion. Soft tissue calcifications are likely vascular. Joint spaces are preserved. Alignment maintained. XR/XR knee LT 3V IMPRESSION: Small joint effusion. Minimal degenerative changes.
== END 2023-08-07 12:38 | disposition home or self-care (01) ==
LOC: HO.HHCX 12:37
PROVIDERS: Visit Provider Family Medicine
DX: M25.562 Pain in left knee (principal)
CPT/HCPCS: 73562

== ENCOUNTER 2023-08-23 13:27 | Outpatient (AMB) | payer MEDICARE, MEDICAID, SELFPAY ==
--- NOTE | 2023-08-23 13:31 | A.OFFVIS_ITS ---
Intake Vital Signs 08/23/23 13:34 Height 5 ft 8 in Weight 185 lb BMI 28.1 BP 130/80 Blood Pressure Location Lt brachial Position Sitting Pulse 73 Pulse Source Pulse Oximeter Pulse Oximetry (%) 97 Oxygen Delivery Method Room Air Intake Visit Reasons: asthma Intake Note: pt is here for follow up and states he is feeling good, some coughing. Butter Fat Tester Required: Yes Butter Fat Tester Name: [id number] Allergies pravastatin Allergy (Verified 08/23/23 13:44) myalgias Medication List - Last Reconciled 08/23/23 by Alejandrina Pena MD doxazosin 2 mg PO BEDTIME fluticasone propion-salmeterol 250-50 mcg/dose (Advair Diskus) 1 ea PO BID gabapentin 300 mg PO TID lisinopril 40 mg PO DAILY rosuvastatin 5 mg PO DAILY umeclidinium 62.5 mcg/actuation (Incruse Ellipta) 1 inh inhalation DAILY Ventolin HFA 90 mcg/actuation (albuterol sulfate) 2 puffs PO Q4-6H PRN NS Do you need a note to return to daycare/school/sports/work: No HPI asthma HPI Details 52 YEARS OLD GENTLEMAN IS A KNOWN CASE O F CHRONIC OBSTRUCTIVE PULMONARY DISEASE, DUE TO HIS SMOKING. CURRENTLY SMOKING ABOUT 7-10 CIGARETTES A DAY. HIS BREATHING IS STAYING VERY STABLE WITH OCCASIONAL COUGH, WHICH IS MOSTLY NONPRODUCTIVE GETS SHORT OF BREATH IF HE WALKS UP HILL OR CLIMBS A FEW FLIGHTS OF STAIRS. OVERALL HIS. CONDITION HAS REMAINED VERY STABLE [facility] Medical History Pulmonary nodule Kidney cyst, acquired COPD (chronic obstructive pulmonary disease) Smoker Surgical History History of lumbar fusion History of appendectomy (~10/1998) History of partial nephrectomy (~09/1998) Social History Patient Tobacco Use Status: Former Tobacco user Tobacco use type: Cigarette Cigarette Packs Per Day: 0.5 Cigarettes Per Day: 7 Years Smoked: 36 (onset 14, 1ppd x 36yr 35+PYH) Review of Systems Const All systems reviewed & are unremarkable except as noted in HPI and below Denies snoring Eyes Reports no additional complaints ENT Reports no additional complaints Card Denies chest pain, Denies irregular heart rhythm, Denies leg edema and Reports dyspnea on exertion (MILD) Resp Reports cough, Reports dyspnea on exertion (MILD), Denies snoring and Denies wheezing GI Reports no additional complaints Reports no additional complaints Musc Reports no additional complaints Skin/Breast Reports system reviewed and no additional complaints, except as documented Neuro Reports no additional complaints Endo Reports no additional complaints Aller/Immun Reports no additional complaints and Denies wheezing Physical Exam Vital Signs: Last Vital Signs Pulse 73 08/23/23 13:34 BP 130/80 08/23/23 13:34 Pulse Ox 97 08/23/23 13:34 Oxygen Delivery Method Room Air 08/23/23 13:34 BMI result Body Mass Index 28.1 Const General: comfortable, no acute distress, alert and awake Orientation/consciousness: patient oriented x3 HEENT Head: Yes normal to inspection General nose exam: No nasal polyps present and No nasal discharge present Face and sinus: Yes sinuses nontender Mouth: oropharynx normal Throat: Yes posterior oropharynx normal Eyes General: appearance normal, both eyes and all related structures Neck Neck: Yes normal visual inspection, Yes no lymphadenopathy, Yes trachea midline and Yes no JVD Thyroid: Thyroid normal Chest Chest palpation & inspection: normal inspection of the chest, normal palpation of entire chest wall and no tenderness Resp Other: Percussion note resonant, has equal breath sounds on both sides ,slightly prolonged expiratory phase. No wheezes or rhonchi are heard. Cardio Palpation: normal PMI Rate: regular rate Rhythm: regular rhythm Heart sounds: no gallops and no murmurs GI Palpation (GI): Soft to palpation, nontender, No hepatosplenomegaly present and no masses Auscultation: normal bowel sounds Back/Spine/Pelvis Thoracic/Lumbar Spine: thoracic and lumbar spine normal to inspection, thoraco- lumbar ROM limited and thoraco-lumbar spasm Skin General skin exam: no rashes or lesions noted Neuro General: patient oriented x3 and no focal motor deficits Cranial nerves: Yes CN's II-XII intact bilaterally Extrem General: Yes normal to inspection, Yes no clubbing, cyanosis or edema and Yes no calf tenderness Psych Appearance: grossly normal and well kempt Speech and movement: Normal speech and movement present Assessment & Plan Assessment & Plan (1) Smoker: Comment: HISTORY OF SMOKING SINCE AGE 14. TRYING TO QUIT ON HIS OWN. SMOKES ABOUT 7-10 CIGARETTES A DAY. Code(s): F17.200 - Nicotine dependence, unspecified, uncomplicated Plan: ONCE AGAIN I STRESSED THAT HE MUST QUIT SMOKING, OTHERWISE COPD MARLY;L CONT. TO GET WORSE , AND HE WILL CONTINUE TO HAVE HIGH RISK FOR LUNG CANCER. HE SHOULD ALSO CONTINUE TO PARTICIPATE IN ANNUAL LUNG SCREENING PROGRAM. (2) COPD (chronic obstructive pulmonary disease): Comment: HE HAS MODERATELY SEVERE OBSTRUCTIVE AIRWAY DISORDER. HE CONTINUES TO HAVE INTERMITTENT COUGH BUT NO WHEEZING . REVIEW THE MEDS LIST WITH HIM AND ADVISED TO CONTINUE REGULARLY. Code(s): J44.9 - Chronic obstructive pulmonary disease, unspecified Plan: I EXPLAINED TO HIM THAT HE WILL CONTINUE TO HAVE COUGH LONG HE SMOKES. CONTINUE : ADVAIR 250-50,ONE INHALATION B.I.D., Incruse Ellipta 1 inhalation daily. Albuterol(PROAIR) HFA 2 puffs Q 4-6 hours p.r.n. (3) Pulmonary nodule: Comment: (1.8 x 1.7 x 1.3 cm RLL spiculated nodule - STATUS POST. NAVIGATIONAL BRONCHOSCOPY AND BIOPSY, NEGATIVE FOR MALIGNANCY. Code(s): R91.1 - Solitary pulmonary nodule Plan: Will continue to have Annual screening. Coding Level of Care Code Est Pt Level 3 (00616) Diagnoses Smoker F17.200 COPD (chronic obstructive pulmonary disease) J44.9 Pulmonary nodule R91.1
[2023-08-23 13:34] VITALS: BP 130/80; PULSE 73; O2SAT 97; BMI 28.1
== END 2023-08-23 13:45 | disposition home or self-care (01) ==
PROVIDERS: PCP Family Medicine; Visit Provider Internal Medicine
DX: F17.200 Nicotine dependence, unspecified, uncomplicated (principal); J44.9 Chronic obstructive pulmonary disease, unspecified; R91.1 Solitary pulmonary nodule
CPT/HCPCS: 99213

== ENCOUNTER → 2023-08-23 13:27 | Outpatient (BNVA) | payer MEDICARE, MEDICAID, SELFPAY | PROVIDERS: PCP Family Medicine; Visit Provider Internal Medicine | DX: J44.9 Chronic obstructive pulmonary disease, unspecified (principal); R91.1 Solitary pulmonary nodule; F17.210 Nicotine dependence, cigarettes, uncomplicated | CPT/HCPCS: 99212 ==

== ENCOUNTER 2023-11-13 09:58 | Outpatient (REF) | payer MEDICARE, MEDICAID, SELFPAY ==
[2023-11-13 12:07] LABS: Cholesterol 142 mg/dL (<200); HDL Cholesterol 54 mg/dL (>40); LDL Cholesterol Calculated 81 mg/dL (<100); Triglycerides 36 mg/dL (<150)
[2023-11-13 12:41] LABS: TSH reflex Free T4 0.49 uIU/mL (0.32-4.0)
[2023-11-13 13:33] LABS: Reflex LDLD? No
== END 2023-11-13 09:59 | disposition home or self-care (01) ==
LOC: HO.HHCL 09:58
PROVIDERS: Visit Provider Family Medicine
DX: E78.5 Hyperlipidemia, unspecified (principal); I10 Essential (primary) hypertension
CPT/HCPCS: 36415; 80061; 84443

== ENCOUNTER 2024-01-25 09:31 | Outpatient (REF) | payer MEDICARE, MEDICAID, SELFPAY ==
--- NOTE | ~2024-01-25 | US_ITS ---
EXAMINATION: US RETROPERITONEAL LIMITED (RENAL ONLY) CLINICAL INFORMATION: Calculus of kidney. COMPARISON: Ultrasound retroperitoneal 12/28/2022. CT abdomen and pelvis 04/27/2021. TECHNIQUE: Real-time imaging of the kidneys. FINDINGS: RIGHT KIDNEY: 9.4 x 5.6 x 5.9 cm (SAG x AP x TRV). The right kidney demonstrates lower pole changes consistent with known partial nephrectomy. No renal calculi or hydronephrosis. There is a 2.4 cm lower pole cyst which contains an avascular but mildly thickened septation. LEFT KIDNEY: 11.3 x 5.6 x 6.4 cm (SAG x AP x TRV). The kidney is normal in size, contour, and echogenicity. Renal cortical thickness is normal. No renal calculi or hydronephrosis. 7 mm simple appearing cyst portion of follow-up imaging is usually warranted. US/US renal BI IMPRESSION: 1. No renal calculi or hydronephrosis of either kidney. 2. Mildly complex 2.4 cm right renal cyst.
== END 2024-01-25 09:32 | disposition home or self-care (01) ==
LOC: HO.US 09:31
PROVIDERS: PCP Family Medicine; Visit Provider Nurse Practitioner Family
DX: N20.0 Calculus of kidney (principal)
CPT/HCPCS: 76775

== ENCOUNTER 2024-02-07 11:34 | Outpatient (REF) | payer MEDICARE, MEDICAID, SELFPAY ==
[2024-02-07 13:38] LABS: Alanine Aminotransferase 16 U/L (0-40); Albumin Level 4.4 g/dL (3.5-5.0); Alkaline Phosphatase 79 U/L (39-117); Anion Gap 14 (12-20); Aspartate Amino Transferase 17 U/L (5-37); Bilirubin Total 0.2 mg/dL (0.0-1.0); Blood Urea Nitrogen 14 mg/dL (9-16); Calcium 9.5 mg/dL (8.4-10.2); Carbon Dioxide 23 mmol/L (22-29); Chloride 109 mmol/L (96-108); Estimated Glomerular Filt Rate > 60; Glucose Random 77 mg/dL (60-115); Potassium 3.9 mmol/L (3.3-5.1); Sodium 142 mmol/L (135-145); Total Protein 7.7 g/dL (6.5-8.0)
== END 2024-02-07 11:35 | disposition home or self-care (01) ==
LOC: HO.HHCL 11:34
PROVIDERS: Visit Provider Family Medicine
DX: I10 Essential (primary) hypertension (principal)
CPT/HCPCS: 36415; 80053

== ENCOUNTER 2024-02-20 13:03 | Outpatient (AMB) | payer MEDICARE, MEDICAID, SELFPAY ==
--- NOTE | 2024-02-20 13:10 | A.OFFVIS_ITS ---
Vital Signs 02/20/24 13:19 Height 5 ft 8 in Weight 177 lb BMI 26.9 BP 124/78 Blood Pressure Location Lt brachial Position Sitting Pulse 56 Pulse Source Pulse Oximeter Pulse Oximetry (%) 97 Oxygen Delivery Method Room Air Intake Visit Reasons: asthma Intake Note: pt is here for follow up and states he is feeling okay, needs refills on all 3 inhalers District Or District Office Director Required: No Allergies pravastatin Allergy (Verified 02/20/24 13:40) myalgias Medication List - Last Reconciled 02/20/24 by Alejandrina Pena MD doxazosin 2 mg PO BEDTIME fluticasone propion-salmeterol 250-50 mcg/dose (Advair Diskus) 1 ea PO BID gabapentin 300 mg PO TID lisinopril 40 mg PO DAILY rosuvastatin 5 mg PO DAILY umeclidinium 62.5 mcg/actuation (Incruse Ellipta) 1 inh inhalation DAILY Ventolin HFA 90 mcg/actuation (albuterol sulfate) 2 puffs PO Q4-6H PRN NS Do you need a note to return to daycare/school/sports/work: No HPI HPI asthma: Details: 53 years old gentleman, known case of COPD and pulmonary nodule, comes for 6 months follow-up Luckily he quit smoking since 6 months ago, Breathing has been better and cough is much less . He has lost a few lb of weight because of watching his diet. PFSH Medical History Ex-smoker for less than 1 year Pulmonary nodule Kidney cyst, acquired COPD (chronic obstructive pulmonary disease) Smoker Surgical History History of lumbar fusion History of appendectomy (~10/1998) History of partial nephrectomy (~09/1998) Social History Patient Tobacco Use Status: Former Tobacco user Tobacco use type: Cigarette Cigarette Packs Per Day: 0.5 Cigarettes Per Day: 7 Years Smoked: 36 (onset 14, 1ppd x 36yr 35+PYH) Review of Systems Const All systems reviewed & are unremarkable except as noted in HPI and below Denies snoring Eyes Reports no additional complaints ENT Reports no additional complaints Card Denies chest pain, Denies irregular heart rhythm, Denies leg edema and Reports dyspnea on exertion (MILD) Resp Reports cough, Reports dyspnea on exertion (MILD), Denies snoring and Denies wheezing GI Reports no additional complaints Reports no additional complaints Musc Reports no additional complaints Skin/Breast Reports system reviewed and no additional complaints, except as documented Neuro Reports no additional complaints Endo Reports no additional complaints Aller/Immun Reports no additional complaints and Denies wheezing Physical Exam Vital Signs: Last Vital Signs Pulse 56 02/20/24 13:19 BP 124/78 02/20/24 13:19 Pulse Ox 97 02/20/24 13:19 Oxygen Delivery Method Room Air 02/20/24 13:19 BMI result Body Mass Index 26.9 Const General: comfortable, no acute distress, alert and awake Orientation/consciousness: patient oriented x3 HEENT Head: Yes normal to inspection General nose exam: No nasal polyps present and No nasal discharge present Face and sinus: Yes sinuses nontender Mouth: oropharynx normal Throat: Yes posterior oropharynx normal Eyes General: appearance normal, both eyes and all related structures Neck Neck: Yes normal visual inspection, Yes no lymphadenopathy, Yes trachea midline and Yes no JVD Thyroid: Thyroid normal Chest Chest palpation & inspection: normal inspection of the chest, normal palpation of entire chest wall and no tenderness Resp Other: Percussion note resonant, has equal breath sounds on both sides ,slightly prolonged expiratory phase. No wheezes or rhonchi are heard. Cardio Palpation: normal PMI Rate: regular rate Rhythm: regular rhythm Heart sounds: no gallops and no murmurs GI Palpation (GI): Soft to palpation, nontender, No hepatosplenomegaly present and no masses Auscultation: normal bowel sounds Back/Spine/Pelvis Thoracic/Lumbar Spine: thoracic and lumbar spine normal to inspection, thoraco- lumbar ROM limited and thoraco-lumbar spasm Skin General skin exam: no rashes or lesions noted Neuro General: patient oriented x3 and no focal motor deficits Cranial nerves: Yes CN's II-XII intact bilaterally Extrem General: Yes normal to inspection, Yes no clubbing, cyanosis or edema and Yes no calf tenderness Psych Appearance: grossly normal and well kempt Speech and movement: Normal speech and movement present Assessment & Plan Assessment & Plan (1) COPD (chronic obstructive pulmonary disease): Comment: HE HAS MODERATELY SEVERE OBSTRUCTIVE AIRWAY DISORDER. Relatively asymptomatic since he quit smoking 6 months ago. Code(s): J44.9 - Chronic obstructive pulmonary disease, unspecified Category: Medical Plan: REVIEW THE MEDS LIST WITH HIM AND ADVISED TO CONTINUE REGULARLY. Wixela 250-51 inhalation b.i.d. Incruse Ellipta 1 inhalation daily. Ventolin 2 puffs Q 6 hours p.r.n. (2) Lung nodule seen on imaging study: Comment: Patient has a pulmonary nodule in right lower lobe 1.8 x 1.7 CMs . Has had navigational transbronchial biopsy , which was negative for neoplasm. He is being followed by Dr. Neff . Code(s): R91.1 - Solitary pulmonary nodule Category: Medical Plan: I encouraged him to keep his appointments. Still needs the annual lung CTA Q 1 year. (3) Ex-smoker for less than 1 year: Comment: Patient has longstanding history of smoking but luckily he did quit 6 months ago. Code(s): Z78.9 - Other specified health status Category: Social Hx Plan: Commended for quitting and stressed that he should not go back to smoking. Medications: New albuterol sulfate 90 mcg/actuation (Ventolin HFA) 2 puffs inhalation Q4-6H PRN 8.5 grams 5RF shortness of breath or wheezing 30 days Changed From fluticasone propion-salmeterol 250-50 mcg/dose (Advair Diskus) 1 ea PO BID 60 ea 3RF J44.9 - Chronic obstructive pulmonary disease, unspecified To fluticasone propion-salmeterol 250-50 mcg/dose (Advair Diskus) 1 ea PO BID 60 ea 5RF copd 30 days J44.9 - Chronic obstructive pulmonary disease, unspecified From umeclidinium 62.5 mcg/actuation (Incruse Ellipta) 1 inh inhalation DAILY To umeclidinium 62.5 mcg/actuation (Incruse Ellipta) 1 inh inhalation DAILY 30 ea 5RF copd 30 days Coding Level of Care Code Est Pt Level 3 (32535) Diagnoses COPD (chronic obstructive pulmonary disease) J44.9 Lung nodule seen on imaging study R91.1 Ex-smoker for less than 1 year Z78.9
[2024-02-20 13:19] VITALS: BP 124/78; PULSE 56; O2SAT 97; BMI 26.9
== END 2024-02-20 13:39 | disposition home or self-care (01) ==
PROVIDERS: PCP Family Medicine; Visit Provider Internal Medicine
DX: J44.9 Chronic obstructive pulmonary disease, unspecified (principal); R91.1 Solitary pulmonary nodule; Z78.9 Other specified health status
CPT/HCPCS: 99213

== ENCOUNTER → 2024-02-20 13:03 | Outpatient (BNVA) | payer MEDICARE, MEDICAID, SELFPAY | PROVIDERS: PCP Family Medicine; Visit Provider Internal Medicine | DX: J44.9 Chronic obstructive pulmonary disease, unspecified (principal); R91.1 Solitary pulmonary nodule; Z78.9 Other specified health status | CPT/HCPCS: 99212 ==

== ENCOUNTER → 2024-03-19 10:04 | Outpatient (BNVA) | payer MEDICARE, MEDICAID, SELFPAY | PROVIDERS: Visit Provider Nurse Practitioner Family | DX: N40.0 Benign prostatic hyperplasia without lower urinary tract symptoms (principal); N28.1 Cyst of kidney, acquired; Z79.899 Other long term (current) drug therapy; Z90.5 Acquired absence of kidney | CPT/HCPCS: 81003; 99212 ==

== ENCOUNTER 2024-05-15 12:11 | Outpatient (REF) | payer MEDICARE, MEDICAID, SELFPAY ==
--- NOTE | ~2024-05-15 | XR_ITS ---
EXAMINATION: XR KNEE, RIGHT CLINICAL INFORMATION: Right medial knee pain x 3 months. Effusion. COMPARISON: None available. TECHNIQUE: Three views of the right knee. FINDINGS: No fracture or joint effusion. Alignment is anatomic. Joint spaces are maintained. A few atherosclerotic calcifications in the popliteal and runoff arteries. XR/XR knee RT 3V IMPRESSION: 1. No acute osseous findings at the right knee. No joint effusion. 2. A few atherosclerotic calcifications in the popliteal and runoff arteries. Electronically signed by: Noah Guevara MD 05/21/2024 03:25 PM EDT
== END 2024-05-15 12:12 | disposition home or self-care (01) ==
LOC: HO.HHCX 12:11
PROVIDERS: Visit Provider Family Medicine
DX: M25.561 Pain in right knee (principal); G89.29 Other chronic pain
CPT/HCPCS: 73562

== ENCOUNTER → 2024-06-13 09:50 | Outpatient (REF) | payer MEDICARE, MEDICAID, SELFPAY ==
--- NOTE | 2024-06-13 10:00 | CA_ITS ---
Transthoracic Echocardiogram Patient (Last, First, Middle): Gino Jang, Gender: Male Date of : 1970 Age: 53 Procedure Date: 06/13/2024 Procedure Type: Transthoracic Echocardiogram Location: OP Height: 180.34 cm Weight: 80.74 kg BSA: 2.01 m2 Heart Rate: bpm BP: 120 / 70 mmHg Veterinary Technician: TO Referring MD: Ondina Hylton MD Symptoms: ASC AORTA DILATION I77.810 Study Quality: Adequate ECG Rhythm: Sinus Conclusions: - The left ventricular systolic function is normal. The calculated ejection fraction is 56% by biplane method. - No obvious valvular pathology seen on this study. - The asc aorta is normal in size. Findings Left Ventricle Normal left ventricular cavity size. The left ventricular systolic function is normal. The calculated ejection fraction is 56% by biplane method. There is no evidence of regional wall motion abnormalities. Diastolic function is normal for age. Mild focal hypertrophy of the basal septum. Right Ventricle Normal right ventricular cavity size and systolic function. Atria Both atria are normal in size. Aortic Valve There is a normal trileaflet aortic valve. There is no aortic valve stenosis. There is no aortic valve regurgitation. Mitral Valve The mitral valve appears normal. There is trace mitral valve regurgitation. There is no mitral valve stenosis. Pulmonic Valve The pulmonic valve is likely normal. Tricuspid Valve There is mild tricuspid valve regurgitation. There is no evidence of pulmonary hypertension. Great Vessels The asc aorta is normal in size. Venous The inferior vena cava is mildly dilated and collapses greater than 50% with inspiration. Pericardium/Pleural There is no evidence of pericardial effusion. Prior Study Comparison Changes noted compared to prior study dated: 05/29/2023. Ascending aortic dimension within normal range. Changes could be technical (current study seems more accurate). Recommendations, Care & Conclusions No obvious valvular pathology seen on this study. Measurements 2D Linear Measurements IVSd: 1.07 0.6-0.9/0.6-1.0 cm LVIDd: 4.71 3.9-5.3/4.2-5.9 cm LVIDd Index: 2.34 2.4-3.2/2.2-3.1 cm/m2 LVIDs: 3.25 2.0-3.6 cm LVPWd: 0.81 0.7-1.1 cm LA Diam: 3.70 2.7-3.8/3.0-4.0 cm LAIDs Index: 1.84 1.5-2.3 cm/m2 LV Mass: 189.24 67-162/88-224 g LV Mass Index: 94.15 43-95/49-115 g/m2 LVOT Diam: 2.20 3.0+(-)1.3 cm 2D Systolic Function EF 4C: 55.40 >55% EF 2C: 57.20 >55% EF BiP: 56.30 >55% Mitral Valve MV Pk E: 0.71 MV PK A: 0.30 MV Decel Time: 222.00 E/A: 2.40 E'Lateral: 10.80 E'Medial: 9.25 E/E' Med: 7.60 E/E' Lat: 6.50 PHT: 65.00 MVA PHT: 3.38 Decel Rawlins: 3.19 Aortic Valve AoV Pk Lino: 1.43 AoV Mn Lino: 0.95 AoV VTI: 0.29 AoV Pk Grad: 8.00 Aov Mn Grad: 4.00 JARET Cont.VTI: 3.45 LVOT LVOT Pk Lino: 1.29 LVOT Mn Lino: 0.81 LVOT VTI: 0.26 LVOT Pk Grad: 7.00 LVOT Mn Grad: 3.00 LVOT Diam: 2.20 LVOT Area: 3.80 Diastolic Function MV Pk E: 0.71 MV Pk A: 0.30 E/A: 2.40 E'Medial: 9.25 E/E' Med: 7.60 E' Laterial: 10.80 E/E' Lat: 6.50 Right Ventricle TAPSE (mm): 21.20 TVS' Lino: 10.10 Tricuspid Valve TR Pk Lino: 2.24 TR Pk Grad: 20.00 RA Press: 8.00 RVSP: 28.00 Great Vessels Aorta Sinus of Valsalva: 3.74 2.0-3.[address] Ridge: 2.97 1.7-3.4 cm Ao Asc: 3.30 2.1-3.4 cm Ao Arch: 3.70 Updated in Other Vendor System with Status of Final Jayme Payton MD electronically signed on 06/14/2024 12:52:08 PM with status of Final
== END ==
LOC: HO.CARD 09:50
PROVIDERS: PCP Family Medicine; Visit Provider Family Medicine
DX: I77.810 Thoracic aortic ectasia (principal)
CPT/HCPCS: 93306

== ENCOUNTER → 2024-06-13 10:00 | Outpatient (BNV) | payer MEDICARE, MEDICAID, SELFPAY | PROVIDERS: PCP Family Medicine; Visit Provider Internal Medicine | DX: I36.1 Nonrheumatic tricuspid (valve) insufficiency (principal); I42.2 Other hypertrophic cardiomyopathy | CPT/HCPCS: 93306 ==

== ENCOUNTER 2024-06-17 09:28 | Outpatient (AMB) | payer MEDICARE, MEDICAID, SELFPAY ==
[2024-06-17 09:30] VITALS: BMI 26.9
--- NOTE | 2024-06-17 09:30 | MHC.OFFVIS ---
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 He describes his pain as sharp in nature. He did aggravate his right knee while walking approximately 4 weeks ago. He has taken gabapentin which gives him mild relief. He denies any locking or giving way. He has not had an injection. 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: Delivery Engineer Name: Manjula [id number] Allergies pravastatin Allergy (Verified 06/17/24 09:45) myalgias Medication List - Last Reviewed 06/17/24 by AHSAN Eduardo doxazosin 2 mg PO BEDTIME gabapentin 300 mg PO TID lisinopril 40 mg PO DAILY rosuvastatin 5 mg PO DAILY PFSH Medical History Ex-smoker for less than 1 year Pulmonary nodule Kidney cyst, acquired COPD (chronic obstructive pulmonary disease) Smoker Surgical History History of lumbar fusion History of appendectomy (~10/1998) History of partial nephrectomy (~09/1998) Social History Patient Tobacco Use Status: Former Tobacco user Tobacco use type: Cigarette Cigarette Packs Per Day: 0.5 Cigarettes Per Day: 7 Years Smoked: 36 (onset 14, 1ppd x 36yr 35+PYH) Physical Exam Vital Signs: BMI result Body Mass Index 26.9 Const Other: Well-nourished well-developed very friendly male awake alert and oriented x3 in no acute distress Extrem Other: Bilateral lower extremity examination shows good capillary refill, no skin lesions noted, normal sensation light touch Right knee examination shows a minimal effusion, mild crepitus with range of motion, tenderness along his medial joint line, positive Amberly's test, no instability Office Procedures Joint Injection/Aspiration Joint Injection/Aspiration Primary Site: right knee Prep: site was prepped using aseptic technique Injected: 40 mg of, DepoMedrol and 1% plain lidocaine Procedure: The patient tolerated the procedure well Coding 13620 - Large joint Procedure code (CPT) selection complete Results Reviewed Results Reviewed: X-rays of the patient's right knee show mild diffuse joint space narrowing, no acute bony abnormalities Assessment & Plan Assessment & Plan (1) Right knee pain: Code(s): M25.561 - Pain in right knee Category: Medical Plan Mr. Jang presents with right knee pain due to early degenerative joint disease. I had a lengthy discussion with the patient regarding the treatment options. The risks and benefits of a right knee cortisone injection were discussed at length with the patient. The patient wished to proceed. Tolerated the injection well. He will continue with his home exercise program. He will contact me prior to his follow-up appointment in 6-8 weeks should any questions or concerns arise. Feel free to call me at any time should questions regarding his orthopedic management arise. Thank you very much for asking me to see this very friendly gentleman. I spent 20 minutes in reviewing the patient's records and imaging studies, seeing the patient and documenting in the medical record. Orders: Orders AMB Joint Injection/Aspiration Today M25.561 - Pain in right knee Coding Level of Care Code New Pt Level 3 (46354) Complex EM visit Add On G2211 Diagnoses Right knee pain M25.561 CPT Codes Coding - 41490 Large joint: 90176 - Large joint ([id number])
== END 2024-06-17 10:04 | disposition home or self-care (01) ==
PROVIDERS: PCP Family Medicine; Visit Provider Orthopaedic Surgery
DX: M25.561 Pain in right knee (principal)
CPT/HCPCS: 20610; 99203

== ENCOUNTER 2024-06-17 13:44 | Outpatient (REF) | payer MEDICARE, MEDICAID, SELFPAY ==
--- NOTE | ~2024-06-17 | US_ITS ---
EXAMINATION: Noninvasive assessment of the bilateral lower extremities with ARTERIAL DUPLEX CLINICAL INFORMATION: Peripheral vascular disease with bilateral claudication TECHNIQUE: Duplex Doppler techniques with waveform analysis and measurement of velocities in the bilateral common femoral, profunda femoris, superficial femoral, popliteal and tibial arteries were performed. COMPARISON: None FINDINGS: DIRECT DUPLEX DOPPLER FINDINGS: RIGHT LEG: Common femoral artery: 151 cm/s, phasicity: Biphasic. Moderate calcified plaque Profunda femoris artery: 140 cm/s, phasicity: Biphasic Superficial femoral artery (proximal): 141 cm/s, phasicity: Triphasic Superficial femoral artery (mid): 195 cm/s, phasicity: Triphasic Superficial femoral artery (distal): 97.0 cm/s, phasicity: Monophasic Popliteal artery: 64.5 cm/s, phasicity: Monophasic Posterior tibial artery: 102 cm/s, phasicity: Triphasic Peroneal artery: 46.2 cm/s, phasicity: Triphasic Anterior tibial artery: 86.7 cm/s, phasicity: Monophasic Dorsalis pedis artery: 42.3 cm/s, phasicity:Monophasic LEFT LEG: Common femoral artery: 166 cm/s, phasicity: Biphasic. Mild calcified plaque Profunda femoris artery: 152 cm/s, phasicity: Triphasic Superficial femoral artery (proximal): 86.2 cm/s, phasicity: Triphasic Superficial femoral artery (mid): 153 cm/s, phasicity: Triphasic Superficial femoral artery (distal): 121 cm/s, phasicity: Triphasic Popliteal artery: 59.3 cm/s, phasicity: Triphasic Posterior tibial artery: 117 cm/s, phasicity: Monophasic Peroneal artery: Mid segment is occluded Anterior tibial artery: 79.8 cm/s, phasicity: Triphasic Dorsalis pedis artery: 19.3 cm/s, phasicity: Monophasic US/US arterial duplex LE BI IMPRESSION: Right leg: Elevated velocity in the mid superficial femoral artery with patent flow but dampened waveforms more distally consistent with mild to moderate stenosis Left leg: Patent arterial flow except in the mid peroneal artery. No significant stenosis or occlusion in the femoral, popliteal and tibial arteries Electronically signed by: Christoph Mckeon MD 06/19/2024 09:04 AM EDT
== END 2024-06-17 13:45 | disposition home or self-care (01) ==
LOC: HO.US 13:44
PROVIDERS: PCP Family Medicine; Visit Provider Family Medicine
DX: M25.561 Pain in right knee (principal); I73.9 Peripheral vascular disease, unspecified
CPT/HCPCS: 20610; 93925; 99202; J1010

== ENCOUNTER 2024-07-22 08:46 | Outpatient (AMB) | payer MEDICARE, MEDICAID, SELFPAY ==
--- NOTE | 2024-07-22 08:54 | A.OFFVIS_ITS ---
Vital Signs 07/22/24 09:02 Height 5 ft 8 in Weight 177 lb BMI 26.9 Intake Visit Reasons: Right knee pain and giving way Intake Note: Gino is a 53 year old male who presents with complaints of progressively worsening right knee pain and giving way. The patient describes his pain as sharp and severe in nature. Most of the pain is along the medial aspect of his knee. The patient's symptoms have gotten worse over the last 6 months in spite of continued non operative treatments. He has failed the last 6 weeks of conservative treatment. His pain and instability have gotten worse since his last visit with me. At that appointment he was given a cortisone injection into his right knee which gave him minimal relief. He states that his right knee will give out several times per day. He has done physical therapy exercises which aggravated his pain. He has also tried Tylenol, anti-inflammatory medicines, oxycodone and gabapentin which gave him minimal relief. Adult Probation Officer Required: Yes Adult Probation Officer Services: Adult Probation Officer Present Adult Probation Officer Name: Kaela ID#[id number] Allergies pravastatin Allergy (Verified 07/22/24 09:01) myalgias Medication List - Last Reconciled 07/22/24 by Dakota Narayanan MD doxazosin 2 mg PO BEDTIME gabapentin 300 mg PO TID lisinopril 40 mg PO DAILY rosuvastatin 5 mg PO DAILY [facility] Medical History Ex-smoker for less than 1 year Pulmonary nodule Kidney cyst, acquired COPD (chronic obstructive pulmonary disease) Smoker Surgical History History of lumbar fusion History of appendectomy (~10/1998) History of partial nephrectomy (~09/1998) Social History Patient Tobacco Use Status: Former Tobacco user Tobacco use type: Cigarette Cigarette Packs Per Day: 0.5 Cigarettes Per Day: 7 Years Smoked: 36 (onset 14, 1ppd x 36yr 35+PYH) Physical Exam Vital Signs: BMI result Body Mass Index 26.9 Const Other: Well-nourished well-developed very friendly male awake alert and oriented x3 in no acute distress Extrem Other: Bilateral lower extremity examination shows good capillary refill, no skin lesions noted, normal sensation light touch Right knee examination shows a minimal effusion, mild crepitus with range of motion, tenderness along his medial joint line, positive Amberly's test, no instability Results Reviewed Results Reviewed: Standing full weight-bearing x-rays of the patient's right knee show mild diffuse joint space narrowing, no acute bony abnormalities Assessment & Plan Assessment & Plan (1) Tear of medial meniscus of right knee: Code(s): S83.241A - Other tear of medial meniscus, current injury, right knee, initial encounter Category: Medical Plan Mr. Jang presents with progressively worsening right knee pain and mechanical symptoms most likely due to tearing of his medial meniscus. I will send the patient for an MRI of his right knee for further evaluation. I will see him back once the MRI is completed to discuss the findings and treatment options. Feel free to call me at any time should questions regarding his orthopedic management arise. I spent 22 minutes in reviewing the patient's records and imaging studies, seeing the patient and documenting in the medical record. Orders: Orders MR knee RT wo con Today S83.241A - Other tear of medial meniscus, current injury, right knee, initial encounter Coding Level of Care Code Est Pt Level 3 (81963) Complex EM visit Add On G2211 Diagnoses Tear of medial meniscus of right knee S83.241A
[2024-07-22 09:02] VITALS: BMI 26.9
== END 2024-07-22 09:08 | disposition home or self-care (01) ==
LOC: HO.HOS 08:46
PROVIDERS: PCP Family Medicine; Visit Provider Orthopaedic Surgery
DX: S83.241A Other tear of medial meniscus, current injury, right knee, initial encounter (principal)
CPT/HCPCS: 99213; G2211

== ENCOUNTER → 2024-07-22 08:46 | Outpatient (BNVA) | payer MEDICARE, MEDICAID, SELFPAY | PROVIDERS: PCP Family Medicine; Visit Provider Orthopaedic Surgery | DX: S83.241A Other tear of medial meniscus, current injury, right knee, initial encounter (principal); X58.XXXA Exposure to other specified factors, initial encounter; Y93.9 Activity, unspecified; Y92.9 Unspecified place or not applicable; Y99.9 Unspecified external cause status | CPT/HCPCS: 99212 ==

== ENCOUNTER 2024-07-23 14:21 | Outpatient (REF) | payer MEDICARE, MEDICAID, SELFPAY ==
--- NOTE | ~2024-07-23 | CT_ITS ---
EXAMINATION: CT ABDOMEN AND PELVIS WITHOUT AND WITH CONTRAST CLINICAL INFORMATION: Cyst of the kidney, acquired. COMPARISON: CT dated April 27, 2021 TECHNIQUE: Multidetector volumetric imaging was performed of the abdomen and pelvis before and after the IV administration of 85 mL of Omnipaque 350 without reported immediate complications. Sagittal and coronal reformatted images were obtained on the technologist's workstation. This CT examination was performed using dose optimization techniques as appropriate, variously including the following: *Automated exposure control *Adjustment of mA and/or kV according to patient size (this includes techniques or standardized protocols for targeted exams where dose is matched to indication/reason for exam; i.e. extremities or head) *Use of iterative reconstruction technique DLP: 491 mGy-cm FINDINGS: Submitted for interpretation on August 20, 2024. Limited due to lack of delayed excretion contrast phase. LUNG BASES: 4 mm calcified pulmonary nodule, peripheral right lung base. Centrilobular subtle changes. No acute airspace disease. Resolved nodular attenuation medial right lung base. LIVER, GALLBLADDER, AND BILIARY TREE: Liver measures 14 cm. There is a 4 mm low density in the posterior right hepatic lobe too small to be fully characterized. Main portal veins, hepatic veins and intrahepatic portion of the IVC are patent. Gallbladder is contracted. No pericholecystic fluid collection. No intrahepatic or extrahepatic biliary ductal dilatation. PANCREAS: No focal mass. No peripancreatic fluid collection. No main pancreatic ductal dilatation. SPLEEN: 10 cm. No focal mass. ADRENAL GLANDS: No nodular lesion. KIDNEYS AND URETERS: Right kidney: Volume loss/defect/absent from the midportion to the lower pole. Nonobstructing 2 mm calculi in the pelvicalyceal system, upper pole. No hydronephrosis. Nonenhancing fluid density abnormality is in the renal cortex and parapelvic and cortical medullary junction with similar morphology since prior exam. No overt enhancing mass. Normal enhancement pattern of the main renal vessels. Left kidney: There is a 10 mm, exophytic fluid density nonenhancing, nonseptated lesion in the posterior midportion. No enhancing nodular component. There is 8 mm nonenhancing fluid density lesion at the corticomedullary junction of the posterior midportion. There is a 5 mm nonenhancing fluid density lesion at the corticomedullary junction anterior midportion. No hydronephrosis. No nephrolithiasis. No overt enhancing lesion. Main renal vessels are patent. BLADDER: Fluid-filled. GASTROINTESTINAL TRACT: Abundant stool. No intestinal obstruction pattern. No pneumoperitoneum. No ascites. No pneumatosis intestinalis. Collapsed appearance of the rectosigmoid colon and segments of the descending colon. I do not see the appendix. No pericecal edema pattern. ABDOMINAL WALL: Small tiny fat-containing umbilical hernia. LYMPH NODES: Nonspecific prominent mesenteric and retroperitoneal lymph nodes. VASCULAR: No aneurysm or dissection, abdominal aorta. Mixed plaques throughout the abdominal aorta wall and iliac arteries. PELVIC VISCERA: Prostate gland is not enlarged. OSSEOUS STRUCTURES: Multilevel lumbar spondylosis. Intervertebral body disc spacer placement, L4-5. Incomplete ankylosis, L4-5 sclerosis and the sacroiliac joints. No lytic or blastic lesions. No acute fracture.. CT/CT abdomen pelvis wo/w IV con IMPRESSION: Stable morphology and enhancement pattern, right kidney. Nonobstructing nephrolithiasis, right kidney. Bosniak type I cysts, left kidney. Fleischner guidelines were followed. Electronically signed by: Theodore Willis MD 08/20/2024 11:41 AM AIDEN
[2024-07-23] MEDS: iohexoL 350 MG/ML 75 ML INFUS..BTL 85 ML IV (15:51)
[2024-07-24 07:34] LABS: Creatinine POC 0.8 mg/dL (0.5-1.4); GFR POC > 60
== END 2024-07-23 14:22 | disposition home or self-care (01) ==
LOC: HO.CT 14:21
PROVIDERS: PCP Family Medicine; Visit Provider Nurse Practitioner Family
DX: N28.1 Cyst of kidney, acquired (principal)
CPT/HCPCS: 74178; 82565; Q9967

== ENCOUNTER → 2024-07-23 14:24 | Outpatient (BNV) | payer MEDICARE, MEDICAID, SELFPAY | PROVIDERS: PCP Family Medicine; Visit Provider Radiology Diagnostic Radiology | DX: N28.1 Cyst of kidney, acquired (principal); K42.0 Umbilical hernia with obstruction, without gangrene | CPT/HCPCS: 74178 ==

== ENCOUNTER 2024-07-25 08:37 | Outpatient (REF) | payer MEDICARE, MEDICAID, SELFPAY ==
[2024-07-25 11:45] LABS: Alanine Aminotransferase 21 U/L (0-40); Albumin Level 4.2 g/dL (3.5-5.0); Alkaline Phosphatase 69 U/L (39-117); Aspartate Amino Transferase 24 U/L (5-37); Bilirubin Direct 0.1 mg/dL (0.0-0.5); Bilirubin Total 0.4 mg/dL (0.0-1.0); Blood Urea Nitrogen 14 mg/dL (9-16); Estimated Glomerular Filt Rate > 60
[2024-07-25 11:48] LABS: Prostate Specific Antigen 0.52 ng/mL (<0.05-4.0)
== END 2024-07-25 08:38 | disposition home or self-care (01) ==
LOC: HO.LAB 08:37
PROVIDERS: PCP Family Medicine; Visit Provider Nurse Practitioner Family
DX: R39.15 Urgency of urination (principal); Z12.5 Encounter for screening for malignant neoplasm of prostate; B35.1 Tinea unguium; Z51.81 Encounter for therapeutic drug level monitoring
CPT/HCPCS: 36415; 80076; 82565; 84153; 84520

== ENCOUNTER 2024-08-09 07:26 | Outpatient (REF) | payer MEDICARE, MEDICAID, SELFPAY ==
--- NOTE | ~2024-08-09 | MR_ITS ---
EXAMINATION: MR KNEE WITHOUT CONTRAST, RIGHT CLINICAL INFORMATION: Medial meniscal tear. COMPARISON: X-ray 04/25/2024. TECHNIQUE: MRI of the knee without contrast was performed using routine sequences on a high-field scanner. FINDINGS: MENISCI: Medial Meniscus: Complex tear involving the articular surface and free edge at the body. There is torn displaced meniscal tissue/flap, superiorly into the meniscofemoral recess. (Image 10:4, 12:17-15). There is superior surface tear in the posterior horn. Anterior root fraying/fissuring. Lateral Meniscus: Anterior horn degeneration. Possible small inner margin tear, with slight blunting. LIGAMENTS: Cruciate: T2 signal in the ACL, likely mucoid degeneration. Intact PCL. Collateral: Possible mild MCL sprain. Intact LCL complex. EXTENSOR MECHANISM: Intact ARTICULAR CARTILAGE/BONE: Patellofemoral Compartment: No significant chondral loss. Medial Compartment: Mild chondral thinning in the anterior weightbearing compartment. Edema in the medial aspect of the tibia and femur. Lateral Compartment: No significant chondral loss. No fracture. JOINT FLUID AND BURSAE: Small effusion. No significant Conley's cyst. MR/MR knee RT wo con IMPRESSION: 1. Tear of the medial meniscal body, with torn displaced meniscal tissue/flap superiorly into the meniscofemoral recess. Tear of the posterior horn. Anterior root fraying/fissuring. 2. Possible inner margin tear in the anterior horn of the lateral meniscus. Possible mild MCL sprain. 3. Mild medial compartment arthritis. 4. Small effusion. Electronically signed by: Pb Anglin MD 08/10/2024 02:04 PM A[facility]
== END 2024-08-09 07:27 | disposition home or self-care (01) ==
LOC: HO.MRI 07:26
PROVIDERS: PCP Family Medicine; Visit Provider Orthopaedic Surgery
DX: S83.241A Other tear of medial meniscus, current injury, right knee, initial encounter (principal)
CPT/HCPCS: 73721

== ENCOUNTER 2024-08-20 09:24 | Outpatient (AMB) | payer MEDICARE, MEDICAID, SELFPAY ==
--- NOTE | 2024-08-20 09:34 | A.OFFVIS_ITS ---
Intake Visit Reasons: 3m/CT/labs(ct scan completed/not read) Intake Note: Patient present for follow up CT scan and BPH Urology Medication:doxazosin Antibiotic Allergy:none Blood Thinner:none Last PVR:0ml's Todays PVR:39ml's [employer] Tool Operator Required: Yes [employer] Operator Services: [employer] Operator Present Allergies pravastatin Allergy (Verified 08/20/24 10:20) myalgias Medication List - Last Reconciled 08/20/[address] doxazosin 2 mg PO BEDTIME gabapentin 300 mg PO TID lisinopril 40 mg PO DAILY rosuvastatin 5 mg PO DAILY HPI Comments Details: Gino is a pleasant 53-year-old Icelandic-speaking male patient of Dr. Hylton. He has a past medical history of suspicious pulmonary nodule negative for malignancy, COPD, and nephrolithiasis. He presents to the office today for follow-up of his history of nephrolithiasis as well as right-sided partial nephrectomy. Of note, patient was seen approximately 5 months ago at which time a CT renal mass protocol was ordered for further assessment evaluation as recent renal imaging noted right kidney with no calculi or hydronephrosis. There is a 2.4 cm lower pole cyst which contains an avascular but mildly thickened septation. Left kidney with no calculi or hydronephrosis. 7 mm simple appearing cyst which requires no additional follow-up per radiology report. Recent renal imaging results reviewed with the patient today. Right kidney with volume loss, defect, absent from the midportion of the lower pole. Nonobstructing 2 mm calculi noted no hydronephrosis nonenhancing fluid density abnormality in the renal cortex and parapelvic and cortical medullary junction with similar morphology since prior exam. No overt enhancing mass. Normal enhancement pattern of the main renal vessels. Left kidney there is a 10 mm, exophytic fluid density nonenhancing, nonseptated lesion in the posterior midportion. No enhancing nodular component. There is 8 mm nonenhancing fluid density lesion at the corticomedullary junction of the posterior midportion. There is a 5 mm nonenhancing fluid density lesion at the corticomedullary junction anterior midportion. No hydronephrosis. No nephrolithiasis. No overt enhancing lesion. Main renal vessels are patent. The bladder is fluid-filled. Stable morphology and enhancement pattern, right kidney. Nonobstructing nephrolithiasis, right kidney. Bosniak type I cysts, left kidney. In discussion with the patient today reports to be doing and feeling well. He offers no urological issues or concerns at this time. He reports be happy with current voiding parameters on 2 mg of doxazosin at bedtime. When asked he denies urinary urgency, urinary frequency, incontinence, nocturia, hematuria, dysuria, foul smelling urine, changes to urinary stream, flank pain, fever, and or chills. We discussed surveillance monitoring. PSAs are as follows: 01/07 0.8, 08/10 0.5 Patient discusses his previous right-sided nephrectomy over 20 years ago related to a large cyst. In office UA results reviewed with the patient today. PVR-39ml' s. PFSH Medical History Ex-smoker for less than 1 year Pulmonary nodule Kidney cyst, acquired COPD (chronic obstructive pulmonary disease) Smoker Surgical History History of lumbar fusion History of appendectomy (~10/1998) History of partial nephrectomy (~09/1998) Social History Patient Tobacco Use Status: Former Tobacco user Tobacco use type: Cigarette Cigarette Packs Per Day: 0.5 Cigarettes Per Day: 7 Years Smoked: 36 (onset 14, 1ppd x 36yr 35+PYH) Review of Systems Const Reports as per HPI Eyes Reports no additional complaints ENT Reports no additional complaints Card Reports no additional complaints Resp Reports no additional complaints GI Reports no additional complaints Reports as per HPI Musc Reports no additional complaints Neuro Reports no additional complaints Psych Reports no additional complaints Endo Reports no additional complaints Kristian/Lymph Reports no additional complaints Aller/Immun Reports no additional complaints Physical Exam Const General: cooperative, healthy appearing, comfortable, no acute distress, well developed, alert and awake Orientation/consciousness: patient oriented x3 Limitations: no limitations HEENT Head: Yes normal to inspection, Yes normocephalic and Yes atraumatic Ears: hearing grossly normal bilaterally Eyes General: appearance normal, both eyes and all related structures Neck Neck: Yes normal visual inspection and Yes trachea midline Chest Chest palpation & inspection: normal inspection of the chest Resp Effort & Inspection: normal respiratory effort and able to speak in complete sentences Cardio Rate: regular rate GI Inspection: Yes normal to inspection General: Yes no CVA tenderness Back/Spine/Pelvis Back: no CVA tenderness Skin General skin exam: no rashes or lesions noted Neuro General: patient oriented x3 Extrem General: Yes normal to inspection Psych Appearance: grossly normal and well kempt Mental Status: mental status grossly normal Speech and movement: Normal speech and movement present and Clear speech present Affect: normal affect Attitude: cooperative Thought process: Normal thought process present Thought content: Normal thought content present Insight: Fair insight present (Psych) Judgement: Fair judgement present (Psych) Office Procedures Post Void Residual Post Residual Void Post Void Residual (PVR): 39 [id number] Void Residual by ultrasound Results AMB Urinalysis, Automated UA Leukoctes 0 Antonia/uL Last Edit by [employer] on 08/20/24 09:54 UA Nitrite Last Edit by [employer] on 08/20/24 09:54 UA Urobilinogen 0.2 mg/dL Last Edit by [employer] on 08/20/24 09:54 UA Protein 30 mg/dL Last Edit by [employer] on 08/20/24 09:54 UA pH 6.0 Last Edit by [employer] on 08/20/24 09:54 UA Blood 0 Dimas/uL Last Edit by [employer] on 08/20/24 09:54 UA Specific [place] 1.025 Last Edit by [employer] on 08/20/24 09:54 UA Ketone Last Edit by [employer] on 08/20/24 09:54 UA Bilirubin 0 mg/dL Last Edit by [employer] on 08/20/24 09:54 UA Glucose 0 mg/dL Last Edit by [employer] on 08/20/24 09:54 Results Reviewed Results Reviewed: Laboratory Last Values Urine pH (Auto) 6.0 08/20/24 09:49 Specific [place] (Auto) 1.025 08/20/24 09:49 Urine Protein (Auto) 30 mg/dL 08/20/24 09:49 Glucose (UA)(Auto) 0 mg/dL 08/20/24 09:49 Urine Blood (Auto) 0 Dimas/uL 08/20/24 09:49 Urine Bilirubin (Auto) 0 mg/dL 08/20/24 09:49 Urine Urobilinogen (Auto) 0.2 mg/dL 08/20/24 09:49 Leukocyte Esterase (Auto) 0 Antonia/uL 08/20/24 09:49 Date of Service: 07/23/24 EXAMINATION: CT ABDOMEN AND PELVIS WITHOUT AND WITH CONTRAST FINDINGS: Submitted for interpretation on August 20, 2024. Limited due to lack of delayed excretion contrast phase. LUNG BASES: 4 mm calcified pulmonary nodule, peripheral right lung base. Centrilobular subtle changes. No acute airspace disease. Resolved nodular attenuation medial right lung base. LIVER, GALLBLADDER, AND BILIARY TREE: Liver measures 14 cm. There is a 4 mm low density in the posterior right hepatic lobe too small to be fully characterized. Main portal veins, hepatic veins and intrahepatic portion of the IVC are patent. Gallbladder is contracted. No pericholecystic fluid collection. No intrahepatic or extrahepatic biliary ductal dilatation. PANCREAS: No focal mass. No peripancreatic fluid collection. No main pancreatic ductal dilatation. SPLEEN: 10 cm. No focal mass. ADRENAL GLANDS: No nodular lesion. KIDNEYS AND URETERS: Right kidney: Volume loss/defect/absent from the midportion to the lower pole. Nonobstructing 2 mm calculi in the pelvicalyceal system, upper pole. No hydronephrosis. Nonenhancing fluid density abnormality is in the renal cortex and parapelvic and cortical medullary junction with similar morphology since prior exam. No overt enhancing mass. Normal enhancement pattern of the main renal vessels. Left kidney: There is a 10 mm, exophytic fluid density nonenhancing, nonseptated lesion in the posterior midportion. No enhancing nodular component. There is 8 mm nonenhancing fluid density lesion at the corticomedullary junction of the posterior midportion. There is a 5 mm nonenhancing fluid density lesion at the corticomedullary junction anterior midportion. No hydronephrosis. No nephrolithiasis. No overt enhancing lesion. Main renal vessels are patent. BLADDER: Fluid-filled. GASTROINTESTINAL TRACT: Abundant stool. No intestinal obstruction pattern. No pneumoperitoneum. No ascites. No pneumatosis intestinalis. Collapsed appearance of the rectosigmoid colon and segments of the descending colon. I do not see the appendix. No pericecal edema pattern. ABDOMINAL WALL: Small tiny fat-containing umbilical hernia. LYMPH NODES: Nonspecific prominent mesenteric and retroperitoneal lymph nodes. VASCULAR: No aneurysm or dissection, abdominal aorta. Mixed plaques throughout the abdominal aorta wall and iliac arteries. PELVIC VISCERA: Prostate gland is not enlarged. OSSEOUS STRUCTURES: Multilevel lumbar spondylosis. Intervertebral body disc spacer placement, L4-5. Incomplete ankylosis, L4-5 sclerosis and the sacroiliac joints. No lytic or blastic lesions. No acute fracture.. IMPRESSION: Stable morphology and enhancement pattern, right kidney. Nonobstructing nephrolithiasis, right kidney. Bosniak type I cysts, left kidney. Assessment & Plan Assessment & Plan (1) Complex renal cyst: Code(s): N28.1 - Cyst of kidney, acquired Category: Medical (2) Renal cyst: Code(s): N28.1 - Cyst of kidney, acquired Category: Medical (3) BPH (benign prostatic hyperplasia): Code(s): N40.0 - Benign prostatic hyperplasia without lower urinary tract symptoms Category: Medical (4) History of partial nephrectomy: Code(s): Z90.5 - Acquired absence of kidney Category: Medical (5) Nephrolithiasis: Code(s): N20.0 - Calculus of kidney Category: Medical Plan In office urinalysis results reviewed with the patient today; as noted above. PVR 39 mL. Patient currently denies any bothersome urinary issues or concerns. Reports be happy with current voiding parameters. Continue doxazosin 2 mg at bedtime. Recent renal imaging results reviewed with the patient today; as noted above. Will continue with surveillance monitoring at this time of renal cysts. We discussed nephrolithiasis as well as further intervention to include ureteroscopy verses ESWL versus surveillance monitoring; risks and benefits of these interventions were discussed We also discussed further metabolic workup to include [facility]ol[facility] and labs. MRI renal mass protocol ordered for 6 months Recent PSA results reviewed with the patient today. Follow-up in 6 months with imaging to be completed prior and PVR at next office visit; or sooner with any issues, concerns, and or questions. Orders: Orders AMB Urinalysis Automated Today Z13.9 - Encounter for screening, unspecified AMB Post Void Residual by ultrasound Today N40.0 - Benign prostatic hyperplasia without lower urinary tract symptoms MR abdomen wo/w con 6 Months N28.1 - Cyst of kidney, acquired, Z90.5 - Acquired absence of kidney Patient Instructions: The patient had an opportunity to ask questions regarding the treatment plan. All questions were answered. Physical exam, labs, and imaging were discussed and reviewed in detail. As well as risks, benefits, and discussion of treatment choices. No major barriers to understanding were identified. The patient expressed understanding and agreement with the above treatment plan. The patient was made aware they should contact our office by phone for worsening of their current condition, the appearance of new symptoms, or with any questions or concerns. Compliance is encouraged with any medications and follow up testing that is ordered. It is a privilege to be allowed the opportunity to participate in? your urological care.? Again, if you have any questions or concerns If you have any questions or concerns please do not hesitate to contact me. The office is [phone]. This note is constructed using voice recognition software. While every effort has been made to ensure accuracy horticulture professor errors may have been included. Yours sincerely, CHER Street Coding Level of Care Code Est Pt Level 3 (52284) Complex EM visit Add On G2211 Diagnoses Complex renal cyst N28.1 Renal cyst N28.1 BPH (benign prostatic hyperplasia) N40.0 History of partial nephrectomy Z90.5 Nephrolithiasis N20.0 CPT Codes Post Residual Void - PVR CPT Code: 17522-Liqt Void Residual by ultrasound ([id number])
== END 2024-08-20 10:03 | disposition home or self-care (01) ==
PROVIDERS: PCP Family Medicine; Visit Provider Nurse Practitioner Family
DX: N28.1 Cyst of kidney, acquired (principal); N40.0 Benign prostatic hyperplasia without lower urinary tract symptoms; Z90.5 Acquired absence of kidney; N20.0 Calculus of kidney; Z13.9 Encounter for screening, unspecified
CPT/HCPCS: 99213; G2211

== ENCOUNTER → 2024-08-20 09:24 | Outpatient (BNVA) | payer MEDICARE, MEDICAID, SELFPAY | PROVIDERS: PCP Family Medicine; Visit Provider Nurse Practitioner Family | DX: N20.0 Calculus of kidney (principal); N28.1 Cyst of kidney, acquired; N40.0 Benign prostatic hyperplasia without lower urinary tract symptoms; Z90.5 Acquired absence of kidney | CPT/HCPCS: 51798; 81003; 99212 ==

== ENCOUNTER 2024-08-27 13:27 | Outpatient (AMB) | payer MEDICARE, MEDICAID, SELFPAY ==
[2024-08-27 13:34] VITALS: BP 122/74; PULSE 84; O2SAT 96; BMI 28.3
--- NOTE | 2024-08-27 13:34 | MHC.OFFVIS ---
Vital Signs 08/27/24 13:34 Height 5 ft 8 in Weight 186 lb 4.65 oz BMI 28.3 BP 122/74 Blood Pressure Location Lt brachial Position Sitting Pulse 84 Pulse Source Pulse Oximeter Pulse Oximetry (%) 96 Oxygen Delivery Method Room Air Intake Visit Reasons: Asthma Intake Note: pt is here for follow up and states breathing is good, just knee pain. Traffic Court Referee Required: No Allergies pravastatin Allergy (Verified 08/27/24 13:50) myalgias Medication List - Last Reconciled 08/27/24 by Alejandrina Pena MD albuterol sulfate 90 mcg/actuation 2 puffs inhalation Q6H PRN doxazosin 2 mg PO BEDTIME fluticasone furoate-vilanterol 100-25 mcg/dose (Breo Ellipta) 1 inh inhalation DAILY gabapentin 600 mg PO TID lisinopril 40 mg PO DAILY rosuvastatin 5 mg PO DAILY tiotropium bromide (Spiriva with HandiHaler) 1 cap inhalation DAILY Do you need a note to return to daycare/school/sports/work: No HPI HPI Asthma: Details: 53 years old gentleman quit smoking 1 year ago and since then he has been doing very well, he has had no acute exacerbation. He gets short of breath if he walks fast or climbs stairs. Has had no spells of coughing. He is using Advair twice a day and Spiriva HandiHaler once a day. He has not needed to use albuterol much. PFSH Medical History Ex-smoker for less than 1 year Pulmonary nodule Kidney cyst, acquired COPD (chronic obstructive pulmonary disease) Smoker Surgical History History of lumbar fusion History of appendectomy (~10/1998) History of partial nephrectomy (~09/1998) Social History Patient Tobacco Use Status: Former Tobacco user Tobacco use type: Cigarette Cigarette Packs Per Day: 0.5 Cigarettes Per Day: 7 Years Smoked: 36 (onset 14, 1ppd x 36yr 35+PYH) Review of Systems Const All systems reviewed & are unremarkable except as noted in HPI and below Denies snoring Eyes Reports no additional complaints ENT Reports no additional complaints Card Denies chest pain, Denies irregular heart rhythm, Denies leg edema and Reports dyspnea on exertion (MILD) Resp Reports cough, Reports dyspnea on exertion (MILD), Denies snoring and Denies wheezing GI Reports no additional complaints Reports no additional complaints Musc Reports no additional complaints Skin/Breast Reports system reviewed and no additional complaints, except as documented Neuro Reports no additional complaints Endo Reports no additional complaints Aller/Immun Reports no additional complaints and Denies wheezing Physical Exam Vital Signs: Last Vital Signs Pulse 84 08/27/24 13:34 BP 122/74 08/27/24 13:34 Pulse Ox 96 08/27/24 13:34 Oxygen Delivery Method Room Air 08/27/24 13:34 BMI result Body Mass Index 28.3 Const General: comfortable, no acute distress, alert and awake Orientation/consciousness: patient oriented x3 HEENT Head: Yes normal to inspection General nose exam: No nasal polyps present and No nasal discharge present Face and sinus: Yes sinuses nontender Mouth: oropharynx normal Throat: Yes posterior oropharynx normal Eyes General: appearance normal, both eyes and all related structures Neck Neck: Yes normal visual inspection, Yes no lymphadenopathy, Yes trachea midline and Yes no JVD Thyroid: Thyroid normal Chest Chest palpation & inspection: normal inspection of the chest, normal palpation of entire chest wall and no tenderness Resp Other: Percussion note resonant, has equal breath sounds on both sides ,slightly prolonged expiratory phase. No wheezes or rhonchi are heard. Cardio Palpation: normal PMI Rate: regular rate Rhythm: regular rhythm Heart sounds: no gallops and no murmurs GI Palpation (GI): Soft to palpation, nontender, No hepatosplenomegaly present and no masses Auscultation: normal bowel sounds Back/Spine/Pelvis Thoracic/Lumbar Spine: thoracic and lumbar spine normal to inspection, thoraco-lumbar ROM limited and thoraco-lumbar spasm Skin General skin exam: no rashes or lesions noted Neuro General: patient oriented x3 and no focal motor deficits Cranial nerves: Yes CN's II-XII intact bilaterally Extrem General: Yes normal to inspection, Yes no clubbing, cyanosis or edema and Yes no calf tenderness Psych Appearance: grossly normal and well kempt Speech and movement: Normal speech and movement present Assessment & Plan Assessment & Plan (1) COPD (chronic obstructive pulmonary disease): Comment: HE HAS MODERATELY SEVERE OBSTRUCTIVE AIRWAY DISORDER. Relatively asymptomatic since he quit smoking 1 year ago. Code(s): J44.9 - Chronic obstructive pulmonary disease, unspecified Category: Medical Plan: Continue Breo 100-251 inhalation daily Spiriva HandiHaler 1 capsule daily. Albuterol HFA 2 puffs Q 6 hours only p.r.n. (2) Pulmonary nodule: Comment: (1.8 x 1.7 x 1.3 cm RLL spiculated nodule - STATUS POST. NAVIGATIONAL BRONCHOSCOPY AND BIOPSY, NEGATIVE FOR MALIGNANCY. Code(s): R91.1 - Solitary pulmonary nodule Category: Medical Plan: Continue follow-up with Dr. MATSON (3) Ex-smoker for less than 1 year: Comment: Patient has longstanding history of smoking but luckily he did quit 6 months ago. Code(s): Z78.9 - Other specified health status Category: Social Hx Plan Patient is commended for not going back to smoking. Coding Level of Care Code Est Pt Level 3 (44725) Diagnoses COPD (chronic obstructive pulmonary disease) J44.9 Pulmonary nodule R91.1 Ex-smoker for less than 1 year Z78.9
== END 2024-08-27 13:56 | disposition home or self-care (01) ==
PROVIDERS: PCP Family Medicine; Visit Provider Internal Medicine
DX: J44.9 Chronic obstructive pulmonary disease, unspecified (principal); R91.1 Solitary pulmonary nodule; Z78.9 Other specified health status
CPT/HCPCS: 99213

== ENCOUNTER → 2024-08-27 13:27 | Outpatient (BNVA) | payer MEDICARE, MEDICAID, SELFPAY | PROVIDERS: PCP Family Medicine; Visit Provider Internal Medicine | DX: J44.9 Chronic obstructive pulmonary disease, unspecified (principal); R91.1 Solitary pulmonary nodule; F17.210 Nicotine dependence, cigarettes, uncomplicated | CPT/HCPCS: 99212 ==

== ENCOUNTER 2024-09-18 14:14 | Outpatient (AMB) | payer MEDICARE, MEDICAID, SELFPAY ==
[2024-09-18 14:15] VITALS: BMI 28.3
--- NOTE | 2024-09-18 14:15 | A.OFFVIS_ITS ---
Vital Signs 09/18/24 14:15 Height 5 ft 8 in Weight 186 lb BMI 28.3 Intake Visit Reasons: Right knee pain and giving way Intake Note: Gino is a 53 year old male who presents with complaints of intermittent pain and giving way in his right knee. He states that his symptoms have gotten somewhat better over the last few weeks. He has had cortisone injection treatment in the past which gave him minimal relief. He has also tried physical therapy exercises which aggravated his pain. He has tried Tylenol and anti- inflammatory medicines which gave him minimal relief. Latin American Studies Professor Required: Yes Latin American Studies Professor Language: Donor Services Specialist Services: Latin American Studies Professor Present Latin American Studies Professor Name: AHSAN Kay/JOSTIN Allergies pravastatin Allergy (Verified 09/18/24 14:15) myalgias Medication List - Last Reconciled 09/18/24 by Dakota Narayanan MD albuterol sulfate 90 mcg/actuation 2 puffs inhalation Q6H PRN doxazosin 2 mg PO BEDTIME fluticasone furoate-vilanterol 100-25 mcg/dose (Breo Ellipta) 1 inh inhalation DAILY gabapentin 600 mg PO TID lisinopril 40 mg PO DAILY rosuvastatin 5 mg PO DAILY tiotropium bromide (Spiriva with HandiHaler) 1 cap inhalation DAILY PFSH Medical History Ex-smoker for less than 1 year Pulmonary nodule Kidney cyst, acquired COPD (chronic obstructive pulmonary disease) Smoker Surgical History History of lumbar fusion History of appendectomy (~10/1998) History of partial nephrectomy (~09/1998) Social History Patient Tobacco Use Status: Former Tobacco user Tobacco use type: Cigarette Cigarette Packs Per Day: 0.5 Cigarettes Per Day: 7 Years Smoked: 36 (onset 14, 1ppd x 36yr 35+PYH) Physical Exam Vital Signs: BMI result Body Mass Index 28.3 Const Other: Well-nourished well-developed very friendly male awake alert and oriented x3 in no acute distress Extrem Other: Bilateral lower extremity examination shows good capillary refill, no skin lesions noted, normal sensation light touch Right knee examination shows a minimal effusion, mild crepitus with range of motion, tenderness along his medial joint line, positive Amberly's test, no instability Results Reviewed Results Reviewed: Standing full weight-bearing x-rays of the patient's right knee show mild di ffuse joint space narrowing, no acute bony abnormalities MRI of the patient's right knee shows mild diffuse degenerative changes as well as a tear of the medial meniscus Assessment & Plan Assessment & Plan (1) Tear of medial meniscus of right knee: Code(s): S83.241A - Other tear of medial meniscus, current injury, right knee, initial encounter Category: Medical Plan Mr. Jang presents with intermittent right knee pain and mechanical symptoms due to a medial meniscus tear. I had a lengthy discussion with the patient regarding the treatment options. At this point the patient's symptoms are tolerable to him. Will continue with his activity modifications. He will follow up with me on an as-needed basis should his symptoms worsen in any way. Feel free to call me at any time should questions regarding his orthopedic management arise. I spent 22 minutes in reviewing the patient's records and imaging studies, seeing the patient and documenting in the medical record. Coding Level of Care Code Est Pt Level 3 (23032) Complex EM visit Add On G2211 Diagnoses Tear of medial meniscus of right knee S83.241A
== END 2024-09-18 14:38 | disposition home or self-care (01) ==
PROVIDERS: PCP Family Medicine; Visit Provider Orthopaedic Surgery
DX: S83.241A Other tear of medial meniscus, current injury, right knee, initial encounter (principal)
CPT/HCPCS: 99213; G2211

== ENCOUNTER → 2024-09-18 14:14 | Outpatient (BNVA) | payer MEDICARE, MEDICAID, SELFPAY | PROVIDERS: PCP Family Medicine; Visit Provider Orthopaedic Surgery | DX: S83.241A Other tear of medial meniscus, current injury, right knee, initial encounter (principal); X58.XXXA Exposure to other specified factors, initial encounter; Y93.9 Activity, unspecified; Y92.9 Unspecified place or not applicable; Y99.9 Unspecified external cause status | CPT/HCPCS: 99212 ==

== ENCOUNTER 2025-01-15 09:12 | Outpatient (REF) | payer MEDICARE, MEDICAID, SELFPAY ==
--- OUTSIDE RECORDS SUMMARY | 2025-01-15 09:57 | XMS_ITS | Encounter Summary ---
Demographics Address [address] [facility] [address] [place] [address] Mobile Phone Home Phone Email Address Preferred Language es Marital Status Baptism Affiliation Unknown Race Other Race Ethnic Group Icelandic Author Organization [employer] Address [address] [place] [address] 7t [place] [address] Care Team Providers Care Wire Chief Name Role Phone Ondina Hylton MD Primary Care Provider [phone] Dejuan Franco PharmD Unavailable [phone] Reason for Referral * Imaging (Routine) - Closed Specialty Diagnoses / Procedures Referred By Justyn napier Referred To Contact Cardiology Diagnoses Chronic pain of right knee Right leg pain Claudication (CMS/HCC) 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) Atherosclerosis of right leg (CMS/HCC) Procedures Vascular US lower extremity arterial duplex bilateral with complete Doppler Ondina Hylton MD [address] [place] [address] Phone: tel: fax: [address] Phone: tel: fax: Referral ID Status Reason Start Date Expiration Date V isits Requested Visits Authorized [id number] Closed Perform Procedure 05/22/2024 05/22/2025 1 1 Encounter Details Date Type Department Care Team (Late st Contact Info) Description 05/22/2024 Orders Only [facility] [address] [place], [place] [phone] Ondina Hylton MD [address] [place], [place] [phone] Claudication (CMS/HCC) (Primary Dx); Chronic pain of right knee; Right leg pain; 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 I have milena gentile 07/02/[address] you li ve. Do you have problems with any of the following? None of the above 07/02/2023 Food Insecurity Answer Date Recorded Within the past 12 months, y ou worried that your food would run out before you got money to buy more: Often true 01/30/2024 Within the past 12 months,th e food you bought just didn't last and you didn't have enough money to get more: Often true Transportation Answer Date Recorded In the past 12 months, has l ack of transportation kept you from medical appts, meetings, work or from getting things needed for daily living? No 07/02/2023 Utilities Answer Date Recorded In the past 12 months, has t he electric, gas, oil or water company threatened to shut off services in your home? No 07/02/2023 Depression Answer Date Recorded Patient Health Questionnaire-2 Score 0 04/17/2023 Sex and Gender Information Value Date Recorded Sex Assigned at Male 07/17/2022 10:17 AM EDT Legal Sex Male 10:17 AM EDT Gender Identity Male 07/17/2022 10:17 AM EDT Sexual Orientation Straight 07/17/2022 10 :17 AM EDT documented as of this encounter Plan of Treatment Upcoming Encounters Date Type Department Care Team (Late st Contact Info) Description 02/20/2025 9:00 AM EDT Clinical Support [address] [address] Phyllis Jimenez, DARÍO [address] [place] [address] documented as of this encounter Goals Goal Patient Goal Type Associated Problems Recent Progress Patient-Stated? Author Blood Pressure < 140/90 Blood Pressure 130/78( 025 1:39 PM EDT) No Dejuan Franco, PharmD Quit using tobacco (cigarettes, smokeless, etc) Tobacco Use No Dejuan Franco, PharmD documented as of this encounter Procedures Procedure Name Priority Date/Time Associated Diagnosis Comments [facility] LOWER EXTREMITY ARTERIAL DUPLEX BILATERAL Routine 06/17/2024 1:56 PM EDT documented in this encounter Results * [facility] Lower Extremity Arterial Duplex Bilateral (06/17/2024 1:56 PM EDT) 06/17/2024 1:56 PM EDT Narrative [facility] - 06/19/2024 9:07 AM EDT ? [facility] ?[address] ?[place] [address] ? Ultrasound Report ? Signed ? Patient: Gino Jang ?MR#: [id number] ? : 1970 ?Acct:[id number] ? Age/Sex: 53 / M ?ADM Date: 06/17/24 ? Loc: HO.US ? Attending Dr: Ondina Hylton MD ? Ordering Physician: Ondina Hylton MD ?? Date of Service: 06/17/24 ?? Procedure(s): US arterial duplex LE BI ?? Accession Number(s): [id number] ? cc: Ondina Hylton MD ? EXAMINATION: ?? Noninvasive assessment of the bilateral lower extremities with ARTERIAL ?? DUPLEX ? CLINICAL INFORMATION: ?? Peripheral vascular disease with bilateral claudication ? TECHNIQUE: ?? Duplex Doppler techniques with waveform analysis and measurement of ?? velocities in the bilateral common femoral, profunda femoris, ?? superficial femoral, popliteal and tibial arteries were performed. ? COMPARISON: None ? FINDINGS: ? DIRECT DUPLEX DOPPLER FINDINGS: ? RIGHT LEG: ?? Common femoral artery: 151 cm/s, phasicity: Biphasic. Moderate ?? calcified plaque ?? Profunda femoris artery: 140 cm/s, phasicity: Biphasic ?? Superficial femoral artery (proximal): 141 cm/s, phasicity: Triphasic ?? Superficial femoral artery (mid): 195 cm/s, phasicity: Triphasic ?? Superficial femoral artery (distal): 97.0 cm/s, phasicity: Monophasic ?? Popliteal artery: 64.5 cm/s, phasicity: Monophasic ?? Posterior tibial artery: 102 cm/s, phasicity: Triphasic ?? Peroneal artery: 46.2 cm/s, phasicity: Triphasic ?? Anterior tibial artery: 86.7 cm/s, phasicity: Monophasic ?? Dorsalis pedis artery: 42.3 cm/s, phasicity:Monophasic ? LEFT LEG: ?? Common femoral artery: 166 cm/s, phasicity: Biphasic. Mild calcified ?? plaque ?? Profunda femoris artery: 152 cm/s, phasicity: Triphasic ?? Superficial femoral artery (proximal): 86.2 cm/s, phasicity: Triphasic ?? Superficial femoral artery (mid): 153 cm/s, phasicity: Triphasic ?? Superficial femoral artery (distal): 121 cm/s, phasicity: Triphasic ?? Popliteal artery: 59.3 cm/s, phasicity: Triphasic ?? Posterior tibial artery: 117 cm/s, phasicity: Monophasic ?? Peroneal artery: Mid segment is occluded ?? Anterior tibial artery: 79.8 cm/s, phasicity: Triphasic ?? Dorsalis pedis artery: 19.3 cm/s, phasicity: Monophasic ? US/US arterial duplex LE BI ?? IMPRESSION: ? Right leg: Elevated velocity in the mid superficial femoral artery with ?? patent flow but dampened waveforms more distally consistent with mild ?? to moderate stenosis ? Left leg: Patent arterial flow except in the mid peroneal artery. No ?? significant stenosis or occlusion in the femoral, popliteal and tibial ?? arteries ? Electronically signed by: ??Christoph Mckeon MD ??06/19/2024 09:04 AM EDT RP ? Dictated By: ?Christoph Mckeon MD ? Signed By: ?<Electronically signed by Christoph Mckeon MD in OV> ? 06/19/24 0904 ? DD/ 1356 ? TD/TT: 06/17/24 1421 ? Motor Expert: ? Procedure Note Donotuseinterpreter, Image - 06/19/[address] [address] Ultrasound Report Signed Patient: Gino JangMR#: [id number] : 1970Acct:[id number] Age/Sex: 53 / MADM Date: 06/17/24 Loc: HO.US Attending Dr: Ondina Hylton MD Ordering Physician: Ondina Hylton MD Date of Service: 06/17/24 Procedure(s): US arterial duplex LE BI Accession Number(s): [id number] cc: Ondina Hylton MD EXAMINATION: Noninvasive assessment of the bilateral lower extremities with ARTERIAL DUPLEX CLINICAL INFORMATION: Peripheral vascular disease with bilateral claudication TECHNIQUE: Duplex Doppler techniques with waveform analysis and measurement of velocities in the bilateral common femoral, profunda femoris, superficial femoral, popliteal and tibial arteries were performed. COMPARISON: None FINDINGS: DIRECT DUPLEX DOPPLER FINDINGS: RIGHT LEG: Common femoral artery: 151 cm/s, phasicity: Biphasic. Moderate calcified plaque Profunda femoris artery: 140 cm/s, phasicity: Biphasic Superficial femoral artery (proximal): 141 cm/s, phasicity: Triphasic Superficial femoral artery (mid): 195 cm/s, phasicity: Triphasic Superficial femoral artery (distal): 97.0 cm/s, phasicity: Monophasic Popliteal artery: 64.5 cm/s, phasicity: Monophasic Posterior tibial artery: 102 cm/s, phasicity: Triphasic Peroneal artery: 46.2 cm/s, phasicity: Triphasic Anterior tibial artery: 86.7 cm/s, phasicity: Monophasic Dorsalis pedis artery: 42.3 cm/s, phasicity:Monophasic LEFT LEG: Common femoral artery: 166 cm/s, phasicity: Biphasic. Mild calcified plaque Profunda femoris artery: 152 cm/s, phasicity: Triphasic Superficial femoral artery (proximal): 86.2 cm/s, phasicity: Triphasic Superficial femoral artery (mid): 153 cm/s, phasicity: Triphasic Superficial femoral artery (distal): 121 cm/s, phasicity: Triphasic Popliteal artery: 59.3 cm/s, phasicity: Triphasic Posterior tibial artery: 117 cm/s, phasicity: Monophasic Peroneal artery: Mid segment is occluded Anterior tibial artery: 79.8 cm/s, phasicity: Triphasic Dorsalis pedis artery: 19.3 cm/s, phasicity: Monophasic US/US arterial duplex LE BI IMPRESSION: Right leg: Elevated velocity in the mid superficial femoral artery with patent flow but dampened waveforms more distally consistent with mild to moderate stenosis Left leg: Patent arterial flow except in the mid peroneal artery. No significant stenosis or occlusion in the femoral, popliteal and tibial arteries Electronically signed by: Christoph Mckeon MD 06/19/2024 09:04 AM EDT RP Dictated By: Christoph Mckeon MD Signed By: <Electronically signed by Christoph Mckeon MD in OV> 06/19/24 0904 DD/ 1356 TD/TT: 06/17/24 1421 Motor Expert: us Ondina Hylton MD CV VASCULAR PROCEDURES Edited Re sult - Final [facility] [address] [place] [address] documented in this encounter Visit Diagnoses Diagnosis Claudication (CMS/HCC)- Primary Unspecified peripheral vascular disease Chronic pain of right knee Right leg pain Pain in soft tissues of limb 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
--- OUTSIDE RECORDS SUMMARY | 2025-01-15 09:58 | XMS_ITS | Encounter Summary ---
Author Organization [email or web address] Address [address] [place] [address] 7[address] [place] [address] Care Team Providers Care Consulting Engineer Name Role Phone Ondina Hylton MD Primary Care Provider Dejuan Franco PharmD Unavailable [phone] Encounter Details Date Type Department Care Team (Late st Contact Info) Description 08/18/2022 Abstract [facility] [address] [place] [address] Dental, Provider, DDS Social History Tobacco Use Types Packs/Day Years Used Date Smoking Tobacco: Never Assessed Sex and Gender Information Value Date Recorded Sex Assigned at Male 07/17/2022 10:17 AM EDT Legal Sex Male 10:17 AM EDT Gender Identity Male 07/17/2022 10:17 AM EDT Sexual Orientation Straight 07/17/2022 10 :17 AM EDT documented as of this encounter Plan of Treatment Upcoming Encounters Date Type Department Care Team (Late st Contact Info) Description 02/20/2025 9:00 AM EDT Clinical Support [facility] [address] [place] [address] Phyllis Jimenez RN [address] [place] [address] documented as of this encounter Procedures Procedure Name Priority Date/Time Associated Diagnosis Comments 12 B(V) COMPOSITE FILLING Routine 08/18/2022 12:00 AM EST 11 F(V) COMPOSITE FILLING Routine 08/18/2022 12:00 AM EST 6 F(V) COMPOSITE FILLING Routine 022 12:00 AM EST 5 B(V) COMPOSITE FILLING Routine 12:00 AM EST 4 B(V) COMPOSITE FILLING Routine 12:00 AM EST 31 CAPRI AM[place] FILLING Routine 08/18/2022 12:00 AM EST 2 O AMALGAM FILLING Routine 08/18/2022 1 2:00 AM EST 30 EXTRACTION Routine 08/18/2022 12:00 AM EST 29 EXTRACTION Routine 08/18/2022 12:00 AM EST 28 EXTRACTION Routine 08/18/2022 12:00 AM EST 21 EXTRACTION Routine 08/18/2022 12:00 AM EST 20 EXTRACTION Routine 08/18/2022 12:00 AM EST 19 EXTRACTION Routine 08/18/2022 12:00 AM EST 18 EXTRACTION Routine 08/18/2022 12:00 AM EST 17 EXTRACTION Routine 08/18/2022 12:00 AM EST 16 EXTRACTION Routine 08/18/2022 12:00 AM EST 15 EXTRACTION Routine 08/18/2022 12:00 AM EST 3 EXTRACTION Routine 08/18/2022 12:00 AM EST 1 EXTRACTION Routine 08/18/2022 12:00 AM EST documented in this encounter Visit Diagnoses Not on filedocumented in this encounter Care Teams Consulting Engineer Relationship Specialty Start Date End Date Ondina Hylton MD [address] [place] [address] PCP - General Family Medicine 06/11/19 Dejuan Franco PharmD [address] [place] [address] Pharmacist Internal Medicine 03/30/23 12/29/24 documented as of this encounter
--- OUTSIDE RECORDS SUMMARY | 2025-01-15 09:58 | XMS_ITS | Clinical Summary ---
Author Organization [facility] Address [address] [place] [phone] Phone Care Team Providers Care Food Checker Name Role Phone Pranay Meadows MD Primary Care Provider [phone] Social History Tobacco Use Types Packs/Day Years Used Date Smoking Tobacco: Never Assessed Sex and Gender Information Value Date Recorded Sex Assigned at Not on file Legal Sex Male 9:55 AM EST Gender Identity Not on file Sexual Orientation Not on file Plan of Treatment Health Maintenance Due Date Last Done Comments DTaP,Tdap,and Td Vaccines (1 - Tdap) 1987 Hepatitis B Vaccines (1 of 3 - 19+ 3-dose series) 1987 Pneumococcal Vaccine: 50+ Ye ars (1 of 1 - PCV) 2018 Zoster Vaccines (1 of 2) 2018 Cholesterol Screening (Lipid Panel) 08/15/2022 Colorectal Cancer Screening: Colonoscopy 08/15/2022 HIV Screening 08/15/2022 Hepatitis C Screening 08/15/2022 Medicare Annual Wellness Visit 08/15/2022 Social Influencers of Health Screening 08/15/2022 Depression Screening 04/17/2024 04/17/2023 COVID-19 Vaccine ( - 2023-2 5 season) 2024 Influenza Vaccine (Season Ended) 2025 HIB Vaccines Aged Out No longer eligi ble based on patient's age to complete this topic HPV Vaccines Aged Out No longer eligi ble based on patient's age to complete this topic Hepatitis A Vaccines Aged Out No long er eligible based on patient's age to complete this topic IPV Vaccines Aged Out No longer eligi ble based on patient's age to complete this topic MMR Vaccines Aged Out No longer eligi ble based on patient's age to complete this topic Meningococcal ACWY Vaccine Aged Out N o longer eligible based on patient's age to complete this topic Meningococcal B Vaccine Aged Out No l onger eligible based on patient's age to complete this topic Pneumococcal Vaccine: Pediat rics (0 to 5 Years) and At-Risk Patients (6 to 64 Years) Aged Out No longer eligi ble based on patient's age to complete this topic RSV Immunization Patients Un [place] 20 months Aged Out No longer eligible b ased on patient's age to complete this topic Varicella Vaccines Aged Out No longer eligible based on patient's age to complete this topic Insurance MEDICAID - [place] MEDICARE Care Teams Food Checker Relationship Specialty Start Date End Date Pranay Meadows MD [address] [place] [address] PCP - General 07/17/1999
--- OUTSIDE RECORDS SUMMARY | 2025-01-15 09:58 | XMS_ITS | Encounter Summary ---
Demographics Address [address] [facility] [address] [place] [address] Mobile Phone Home Phone Email Address Preferred Language es Marital Status Jew Affiliation Unknown Race Other Race Ethnic Group Bahraini Author Organization [employer] Address [address] [place] [address] [address] [place] [address] Care Team Providers Care Marine Safety Officer Name Role Phone Ondina Hylton MD Primary Care Provider [phone] Dejuan Franco PharmD Unavailable [phone] Reason for Referral * Consultation (Routine) - Closed Specialty Diagnoses / Procedures Referred By Contjose t Referred To Contact Pharmacy Diagnoses Hypertension, unspecified type Tobacco dependence Ondina Hylton MD [address] [place] [address] Phone: tel: fax: Referral ID Status Reason Start Date Expiration Date V isits Requested Visits Authorized [id number] Closed Consult and Treat 07/29/2024 07/29/2025 6 6 Encounter Details Date Type Department Care Team (Late st Contact Info) Description 07/29/2024 Orders Only [facility] [address] [place] [address] Ondina Hylton MD [address] [place], [place] [phone] Hypertension, unspecified type (Primary Dx); Tobacco dependence Social History Tobacco Use Types Packs/Day Years [...] 02/20/2025 9:00 AM EDT Clinical Support [facility] [address] [place] [address] Phyllis Jimenez, DARÍO [address] [place], [place] [phone] Scheduled Referrals Name Type Priority Associated Diagnoses Orde r Schedule Referral to Pharmacy CDTM Outpatient Referral Routine Hypertension, unspecified type Tobacco dependence Ordered: 07/29/2024 documented as of this encounter Goals Goal Patient Goal Type Associated Problems Recent Progress Patient-Stated? Author Blood Pressure < 140/90 Blood Pressure 130/78( 025 1:39 PM EDT) No Dejuan Franco, PharmD Quit using tobacco (cigarettes, smokeless, etc) Tobacco Use No Dejuan Franco, PharmD documented as of this encounter Visit Diagnoses Diagnosis Hypertension, unspecified type- Primary Tobacco dependence Tobacco use disorder documented in this encounter Additional Health Concerns Assessment Noted Time PHQ-9 Depression Total Score: 0 04/17/20 23 11:07 AM EDT documented as of this encounter Care Teams Marine Safety Officer Relationship Specialty Start Date End Date Ondina Hylton MD [address] [place] [address] PCP - General Family Medicine 06/11/19 Dejuan Franco, PharmD [address] [place] [address] Pharmacist Internal Medicine 03/30/23 12/29/24 documented as of this encounter
--- OUTSIDE RECORDS SUMMARY | 2025-01-15 09:58 | XMS_ITS | Clinical Summary ---
Demographics Address [address] [place] [address] Mobile Phone Home Phone Email Address Preferred Language es Marital Status Protestant Affiliation Unknown Race Other Race Ethnic Group Croatian Author Organization [employer] Address [address] [place] [address] [address] [place] [address] Care Team Providers Care Environmental Law Professor Name Role Phone Ondina Hylton MD Primary Care Provider [phone] Allergies Active Allergy Reactions Criticality Noted Date Comments Pravastatin 11/04/2015 Other reaction(s): Myalgias Medications gabapentin (Neurontin) 600 MG tablet Take 1 tablet (600 mg) by mouth 3 times daily. 90 tablet 11 024 2024 Active Fluticasone Furoate-Vilantero l (Breo Ellipta) 100-25 MCG/ACT aerosol powder Inhale 1 Inhalation Once per day. 60 each Active tiotropium (Spiriva HandiHaler) [address] 1 capsule (18 mcg) into inhaler and inhale in the morning. 30 capsule 024 2024 Active Ventolin HFA 108 (90 Base) MCG/ACT inhaler INHALE 2 PUFFS BY MOUTH EVERY 4 HOURS NEEDED FOR WHEEZING OR SHORTNESS OF BREATH 18 g 1 Active naloxone (Narcan) 4 mg/0.1 mL nasal spray Administer 1 spray (4 mg) into affected nostril(s) if needed for opioid reversal. May repeat every 2-3 minutes if needed, alternating nostrils, until medical assistance becomes available. 2 each 024 2024 Active Blood Pressure kitIndications:Hy pertension, unspecified type Use to check blood pressure once daily 1 kit Active rosuvastatin (Crestor) 5 MG tabletIndications :Hyperlipidemia, unspecified hyperlipidemia type TAKE 1 TABLET BY MOUTH AT BEDTIME 90 tablet 3 025 Active lisinopril 40 MG tabletIndications :Hypertension, unspecified type TAKE 1 TABLET BY MOUTH EVERY MORNING 90 tablet 025 Active doxazosin (Cardura) 4 MG tabletIndications :Hypertension, unspecified type Take 1 tablet (4 mg) by mouth at bedtime. 90 tablet 025 Active oxyCODONE (Roxicodone) 5 MG immediate release tabletIndications :Failed back syndrome Take 1 tablet (5 mg) by mouth at bedtime. 28 tablet 025 Active doxazosin (Cardura) 4 MG tabletIndications :Hypertension, unspecified type Take 1 tablet (4 mg) by mouth at bedtime. 90 tablet 3 024 2024 Discontinued(R eorder (will not trigger notification to Pharmacy)) lisinopril 40 MG tabletIndications :Hypertension, unspecified type TAKE 1 TABLET BY MOUTH EVERY MORNING 90 tablet 3 024 2024 Discontinued(R eorder (will not trigger notification to Pharmacy)) oxyCODONE (Roxicodone) 5 MG immediate release tabletIndications :Failed back syndrome TAKE 1 TABLET BY MOUTH EVERY DAY AT BEDTIME 28 tablet 025 2024 Discontinued(R eorder (will not trigger notification to Pharmacy)) Active Problems Problem Noted Date Diagnosed Date Chronic pain of right knee 05/15/2024 Assessment & Plan (10/06/2024 6:48 PM EST): - followed by [facility] Ortho, Dr. Narayanan. Last seen in Aug 2024 - MRI in Nov showed right medial meniscus tear. - Patient received PT - Patient elected no surgical intervention at this time Assessment & Plan (05/15/2024 12:45 PM EDT): - will obtain XR - consider MRI - will refer him to orthopedist Onychomycosis 02/16/2024 Assessment & Plan (05/16/2024 2:40 PM EDT): - taking terbinafine 250 mg daily - holding statin while taking terbinafine Assessment & Plan (02/16/2024 7:39 AM EDT): - patient is interested in trying oral terbinafine - will hold statin while taking terbinafine and monitor liver enzyme test closely Renal cyst 02/07/2024 Assessment & Plan (10/06/2024 6:46 PM EST): - Renal US on 01/25/24 showed mildly complex 2.4 cm right renal cyst. - CT scan in Jul 2024 showed stable morphology - Follow up imaging in 6 mo per urologist Assessment & Plan (05/15/2024 12:44 PM EDT): - Renal US on 01/25/24 showed mildly complex 2.4 cm right renal cyst. - urologist has ordered CT scan Assessment & Plan (02/07/2024 6:36 AM EDT): - Renal US on 01/25/24 showed mildly complex 2.4 cm right renal cyst. - upcoming appointment with urologist Lung nodule 11/06/2022 Assessment & Plan (05/16/2024 2:32 PM EDT): -02/17/[address] for pulmonary nodule follow-up No new or suspicious pulmonary nodules. Stable right fissural lymph node. Multiple calcified nodules consistent with prior infection such as varicella. Increasing diameter of the ascending thoracic aorta, now 4 cm at the upper limits of normal. -05/16/[address] showed a spiculated irregular 1.8 cm lesion in RLL -Followed by both fishing vessel operator, Dr. Pena, and thoracic surgeon, Dr. Neff -05/24/21 PET showed mild FDG activity in RLL -s/p biopsy on June 17 2021, pathology report showed no malignancy. Pt has appt with Dr. Neff on 07/01/21 to discuss further evaluation and management -CT on 01/10/23 showed an increase in the size of RUL nodule, decreased RML nodule. Multiple stable nodules, calcified granulomas -CT on 04/13/23 showed stable pulmoary nodules; recommended to repeat in 6 mo -CT on 11/02/23 showed 5 mm RLL pulmonary nodule; recommended to repeat in 12 mo (incidental finding of non-obstructive renal calculi) -continue working on smoking cessation Assessment & Plan (02/16/2024 7:34 AM EDT): -02/17/[address] for pulmonary nodule follow-up No new or suspicious pulmonary nodules. Stable right fissural lymph node. Multiple calcified nodules consistent with prior infection such as varicella. Increasing diameter of the ascending thoracic aorta, now 4 cm at the upper limits of normal. -05/16/[address] showed a spiculated irregular 1.8 cm lesion in RLL -Followed by both fishing vessel operator, Dr. Pena, and thoracic surgeon, Dr. Neff -05/24/21 PET showed mild FDG activity in RLL -s/p biopsy on June 17 2021, pathology report showed no malignancy. Pt has appt with Dr. Neff on 07/01/21 to discuss further evaluation and management -CT on 01/10/23 showed an increase in the size of RUL nodule, decreased RML nodule. Multiple stable nodules, calcified granulomas -CT on 04/13/23 showed stable pulmoary nodules; recommended to repeat in 6 mo -CT on 11/02/23 showed 5 mm RLL pulmonary nodule; recommended to repeat in 12 mo (incidental finding of non-obstructive renal calculi) -continue working on smoking cessation Assessment & Plan (11/30/2023 4:50 PM EDT): -02/17/[address] for pulmonary nodule follow-up No new or suspicious pulmonary nodules. Stable right fissural lymph node. Multiple calcified nodules consistent with prior infection such as varicella. Increasing diameter of the ascending thoracic aorta, now 4 cm at the upper limits of normal. -05/16/[address] showed a spiculated irregular 1.8 cm lesion in RLL -Followed by both fishing vessel operator, Dr. Pena, and thoracic surgeon, Dr. Neff -05/24/21 PET showed mild FDG activity in RLL -s/p biopsy on June 17 2021, pathology report showed no malignancy. Pt has appt with Dr. Neff on 07/01/21 to discuss further evaluation and management -CT on 01/10/23 showed an increase in the size of RUL nodule, decreased RML nodule. Multiple stable nodules, calcified granulomas -CT on 04/13/23 showed stable pulmoary nodules; recommended to repeat in 6 mo -CT on 11/02/23 showed 5 mm RLL pulmonary nodule; recommended to repeat in 12 mo (incidental finding of non-obstructive renal calculi) -continue working on smoking cessation Assessment & Plan (08/19/2023 6:28 AM EST): -02/17/[address] for pulmonary nodule follow-up No new or suspicious pulmonary nodules. Stable right fissural lymph node. Multiple calcified nodules consistent with prior infection such as varicella. Increasing diameter of the ascending thoracic aorta, now 4 cm at the upper limits of normal. -05/16/[address] showed a spiculated irregular 1.8 cm lesion in RLL -Followed by both fishing vessel operator, Dr. Pena, and thoracic surgeon, Dr. Neff -05/24/21 PET showed mild FDG activity in RLL -s/p biopsy on June 17 2021, pathology report showed no malignancy. Pt has appt with Dr. Neff on 07/01/21 to discuss further evaluation and management -CT on 01/10/23 showed an increase in the size of RUL nodule, decreased RML nodule. Multiple stable nodules, calcified granulomas -CT on 04/13/23 showed stable pulmoary nodules; recommended to repeat in 6 mo -continue working on smoking cessation Assessment & Plan (04/23/2023 11:04 AM EDT): -02/17/[address] for pulmonary nodule follow-up No new or suspicious pulmonary nodules. Stable right fissural lymph node. Multiple calcified nodules consistent with prior infection such as varicella. Increasing diameter of the ascending thoracic aorta, now 4 cm at the upper limits of normal. -05/16/[address] showed a spiculated irregular 1.8 cm lesion in RLL -Followed by both fishing vessel operator, Dr. Pena, and thoracic surgeon, Dr. Neff -05/24/21 PET showed mild FDG activity in RLL -s/p biopsy on June 17 2021, pathology report showed no malignancy. Pt has appt with Dr. Neff on 07/01/21 to discuss further evaluation and management -CT on 01/10/23 showed an increase in the size of RUL nodule, decreased RML nodule. Multiple stable nodules, calcified granulomas -CT on 04/13/23 pending final report -continue working on smoking cessation Assessment & Plan (11/06/2022 6:04 AM EST): -02/17/[address] for pulmonary nodule follow-up No new or suspicious pulmonary nodules. Stable right fissural lymph node. Multiple calcified nodules consistent with prior infection such as varicella. Increasing diameter of the ascending thoracic aorta, now 4 cm at the upper limits of normal. -05/16/[address] showed a spiculated irregular 1.8 cm lesion in RLL -Followed by both fishing vessel operator, Dr. Pena, and thoracic surgeon, Dr. Neff -05/24/21 PET showed mild FDG activity in RLL -s/p biopsy on June 17 2021, pathology report showed no malignancy. Pt has appt with Dr. Neff on 07/01/21 to discuss further evaluation and management -Most recent CT on 12/16/21 shows improved RLL nodule and emphysema -continue working on smoking cessation History of kidney stones 11/06/2022 Assessment & Plan (02/16/2024 7:36 AM EDT): Adequate hydration Most recent US in January 2024 showed no kidney stone Recent chest CT in Oct 2023 showed non-obstructive kidney stones again Follow up with urologist as scheduled Assessment & Plan (11/30/2023 4:52 PM EDT): Adequate hydration Most recent US in December 2022 showed kidney stone, but no obstruction Recent chest CT in Oct 2023 showed non-obstructive kidney stones again Back pain is unlikely to be due to kidney stone Assessment & Plan (08/19/2023 6:39 AM EST): Adequate hydration Most recent US in December 2022 showed kidney stone, but no obstruction Back pain is unlikely to be due to kidney stone Assessment & Plan (04/23/2023 11:10 AM EDT): Adequate hydration No recent kidney stone Back pain is unlikely to be due to kidney stone Assessment & Plan (11/06/2022 6:17 AM EST): Adequate hydration Refer to urologist Tobacco dependence 10/31/2022 Assessment & Plan (10/06/2024 6:43 PM EST): -stopped on 03/31/23 with our pharmacist's coaching -Previously smoking 1 ppd, he tried Chantix and nicotine replacement -Continue current smoking cessation effort and maintain non-smoking status. Assessment & Plan (05/16/2024 2:32 PM EDT): -stopped on 03/31/23 with our pharmacist's coaching -Previously smoking 1 ppd, he tried Chantix and nicotine replacement -Continue current smoking cessation effort and maintain non-smoking status. Assessment & Plan (02/16/2024 7:38 AM EDT): -stopped on 03/31/23 with our pharmacist's coaching -Previously smoking 1 ppd, he tried Chantix and nicotine replacement -Continue current smoking cessation effort and maintain non-smoking status. Assessment & Plan (11/30/2023 4:53 PM EDT): -Smoking 1 ppd previously, stopped on 03/31/23 with our pharmacist's coaching -Previously tried Chantix and nicotine replacement -Currently on nicotine lozenge -Continue working on smoking cessation Assessment & Plan (08/07/2023 8:42 AM EST): -Smoking 1 ppd previously, stopped on 03/31/23 -Previously tried Chantix and nicotine replacement -Currently on nicotine lozenge -Continue working on smoking cessation Assessment & Plan (04/23/2023 11:11 AM EDT): -Smoking 1 ppd previously, stopped 1 mo ago -Previously tried Chantix and nicotine replacement -Continue working on smoking cessation Assessment & Plan (11/06/2022 6:06 AM EST): -Smoking 1 ppd currently -Previously tried Chantix and nicotine replacement -Continue working on smoking cessation -Refer to [facility] for smoking cessation Benign prostatic hyperplasia 10/31/2022 Assessment & Plan (05/15/2024 12:44 PM EDT): CT scan in Apr 2021 showed: Right lower pole nephrectomy with mild hydronephrosis and punctate nonobstructive radiopaque calculi upper pole right kidney. Seen by urologist [facility], last on 03/19/24 Continue doxazosin for both BPH symptoms and HTN - normal PSA Assessment & Plan (11/13/2023 9:41 AM EST): CT scan in Apr 2021 showed: Right lower pole nephrectomy with mild hydronephrosis and punctate nonobstructive radiopaque calculi upper pole right kidney. Seen by urologist Rebeca, last on 01/24/23 Continue doxazosin for both BPH symptoms and HTN Assessment & Plan (08/19/2023 6:39 AM EST): CT scan in Apr 2021 showed: Right lower pole nephrectomy with mild hydronephrosis and punctate nonobstructive radiopaque calculi upper pole right kidney. Seen by urologist Rebeca, last on 01/24/23 Continue doxazosin for both BPH symptoms and HTN Assessment & Plan (04/23/2023 11:09 AM EDT): CT scan in Apr 2021 showed: Right lower pole nephrectomy with mild hydronephrosis and punctate nonobstructive radiopaque calculi upper pole right kidney. Seen by urologist Rebeca, last on 01/24/23 Continue doxazosin for both BPH symptoms and HTN Assessment & Plan (11/06/2022 6:16 AM EST): CT scan in Apr 2021 showed: Right lower pole nephrectomy with mild hydronephrosis and punctate nonobstructive radiopaque calculi upper pole right kidney. Refer to urologist Complication of surgical procedure 10/30/2022 Hyperlipidemia 10/30/2022 Disorder of sacroiliac joint 10/30/2022 Tooth sensitivity at cementoenamel junction 2023 Dental caries 08/24/2022 Dental calculus 08/24/2022 Periodontal disease 08/24/2022 Gingival recession, generalized 08/24/2022 Ascending aorta dilatation 02/26/2018 Assessment & Plan (05/15/2024 12:43 PM EDT): -Chest CT in February 2018 showed mildly dilated ascending thoracic aorta, 4.0 cm -recent chest CT mentions of calcified coronary artery disease, but not dilation. -05/29/23 TTE showed mild dilation of ascending aorta, measuring 4.1 cm -Discussed about the importance of BP control and smoking cessation. - will update his echocardiogram Assessment & Plan (08/19/2023 6:37 AM EST): -Chest CT in February 2018 showed mildly dilated ascending thoracic aorta, 4.0 cm -recent chest CT mentions of calcified coronary artery disease, but not dilation. -05/29/23 TTE showed mild dilation of ascending aorta, measuring 4.1 cm -Discussed about the importance of BP control and smoking cessation. Assessment & Plan (04/23/2023 11:24 AM EDT): -Chest CT in February 2018 showed mildly dilated ascending thoracic aorta, 4.0 cm -recent chest CT mentions of calcified coronary artery disease, but not dilation. -Pt has not had a follow up with railroad car repairman or echocardiogram -Discussed about the importance of BP control and smoking cessation. Chronic obstructive pulmonary disease 07/06/2016 Assessment & Plan (10/06/2024 6:41 PM EST): 03/14/16 PFT consistent with COPD 02/17/[address] showed: Moderately severe medrano acinar and paraseptal emphysema. Multiplanar reformats show an increasing severity towards the lung bases. Possible alpha-1 antitrypsin deficiency. Pulmonary consult was recommended - Followed by fishing vessel operator, last seen on 08/27/24 - Alpha-antitrypsin was normal level. - Continue fluticasone furonate / vilanterol (Breo) and tiotropium (Spiriva) - Previously on umeclidiniium (Incruse Ellipta) and fluticasone propionate / salmeterol (Advair or Wixela). Changed due to insurance - Continue albuterol HFA -continue current smoking cessation effort. Assessment & Plan (05/15/2024 12:42 PM EDT): 03/14/16 PFT consistent with COPD 02/17/[address] showed: Moderately severe medrano acinar and paraseptal emphysema. Multiplanar reformats show an increasing severity towards the lung bases. Possible alpha-1 antitrypsin deficiency. Pulmonary consult was recommended - Followed by fishing vessel operator, last seen on 02/20/24 - Alpha-antitrypsin was normal level. -Previously on umeclidiniium (Incruse Ellipta); Incruse is not covered by insurance. Will switch to spiriva -Previously on fluticasone / salmeterol (Advair or Wixela); will switch to Breo -Continue albuterol HFA -continue current smoking cessation effort. Assessment & Plan (02/16/2024 7:33 AM EDT): 03/14/16 PFT consistent with COPD 02/17/[address] showed: Moderately severe medrano acinar and paraseptal emphysema. Multiplanar reformats show an increasing severity towards the lung bases. Possible alpha-1 antitrypsin deficiency. Pulmonary consult was recommended - Followed by fishing vessel operator, last seen on 08/23/23 - Alpha-antitrypsin was normal level. -Continue umeclidiniium (Incruse Ellipta). -Continue fluticasone / salmeterol (Advair or Wixela). -Continue albuterol HFA -continue current smoking cessation effort. Assessment & Plan (11/13/2023 9:40 AM EST): 03/14/16 PFT consistent with COPD 02/17/[address] showed: Moderately severe medrano acinar and paraseptal emphysema. Multiplanar reformats show an increasing severity towards the lung bases. Possible alpha-1 antitrypsin deficiency. Pulmonary consult was recommended - Followed by fishing vessel operator, last seen on 02/22/23 - Alpha-antitrypsin was normal level. -Continue umeclidiniium (Incruse Ellipta). -Continue fluticasone / salmeterol (Advair or Wixela). -Continue albuterol HFA -continue current smoking cessation effort. Assessment & Plan (08/19/2023 6:30 AM EST): 03/14/16 PFT consistent with COPD 02/17/[address] showed: Moderately severe medrano acinar and paraseptal emphysema. Multiplanar reformats show an increasing severity towards the lung bases. Possible alpha-1 antitrypsin deficiency. Pulmonary consult was recommended - Followed by fishing vessel operator, last seen on 02/22/23 - Alpha-antitrypsin was normal level. -Continue umeclidiniium (Incruse Ellipta). -Continue fluticasone / salmeterol (Advair or Wixela). -Continue albuterol HFA -continue current smoking cessation effort. Assessment & Plan (04/23/2023 11:06 AM EDT): 03/14/16 PFT consistent with COPD 02/17/[address] showed: Moderately severe medrano acinar and paraseptal emphysema. Multiplanar reformats show an increasing severity towards the lung bases. Possible alpha-1 antitrypsin deficiency. Pulmonary consult was recommended - Followed by fishing vessel operator, last seen on 02/22/23 - Alpha-antitrypsin was normal level. -Continue Incruse Ellipta. -Continue Advair. -Continue albuterol HFA -continue current smoking cessation effort. Assessment & Plan (11/06/2022 6:02 AM EST): 03/14/16 PFT consistent with COPD 02/17/[address] showed: Moderately severe medrano acinar and paraseptal emphysema. Multiplanar reformats show an increasing severity towards the lung bases. Possible alpha-1 antitrypsin deficiency. Pulmonary consult was recommended - Followed by fishing vessel operator, last seen on 10/10/22 -Press Clippings Cutter And Paster added Advair at last visit; clarified pt's confusion about medications. - Alpha-antitrypsin was normal level. -Continue Incruse Ellipta. -Continue Advair. -continue Working on smoking cessation. History of partial nephrectomy 07/06/2016 Chronic, continuous use of opioids 11/04/2015 Assessment & Plan (10/06/2024 6:43 PM EST): - failed back syndrome - continue judicious use of oxycodone - increase gabapentin - continue judicious use of THC/CBD Assessment & Plan (02/16/2024 7:42 AM EDT): - failed back syndrome - continue judicious use of oxycodone - increase gabapentin - continue judicious use of THC/CBD Dyslipidemia 06/29/2015 Assessment & Plan (10/06/2024 6:43 PM EST): -last lipid profile 11/13/23 Total cholesterol 142; LDL 81; HDL 54; Triglyceride 36 -Hx adverse reaction to pravastatin -Current medication: rosuvastatin 5 mg at bedtime (tolerating) -Currently on hold because he is taking terbinafine. Assessment & Plan (05/16/2024 2:39 PM EDT): -last lipid profile 11/13/23 Total cholesterol 142; LDL 81; HDL 54; Triglyceride 36 -Hx adverse reaction to pravastatin -Current medication: rosuvastatin 5 mg at bedtime (tolerating) -Currently on hold because he is taking terbinafine. Assessment & Plan (02/16/2024 7:36 AM EDT): -last lipid profile 11/13/23 Total cholesterol 142; LDL 81; HDL 54; Triglyceride 36 -Hx adverse reaction to pravastatin -Current medication: rosuvastatin 5 mg at bedtime (tolerating) Assessment & Plan (11/30/2023 4:53 PM EDT): -last lipid profile 11/13/23 Total cholesterol 142; LDL 81; HDL 54; Triglyceride 36 -Hx adverse reaction to pravastatin -Current medication: rosuvastatin 5 mg at bedtime (tolerating) Assessment & Plan (08/19/2023 6:47 AM EST): -last lipid profile 11/16/22 -Hx adverse reaction to pravastatin -Current medication: rosuvastatin 5 mg at bedtime (tolerating) Assessment & Plan (11/06/2022 6:15 AM EST): -last lipid profile 04/20/21 TC 162; HDL 49; LDL 104; TG 46 -Hx adverse reaction to pravastatin -Repeat lab; consider low-dose rosuvastatin trial if indicated Hypertension 06/29/2015 Assessment & Plan (10/06/2024 6:42 PM EST): -Goal BP < 140 / 90 per JNC-8 and < 130 / 80 per ACC/AHA guideline (Treatment threshold >= 140/90 ) -Elevated today -Co-managed with our pharmacist through [facility] -Treatment Hx: Previously on hydrochlorothiazide 25 mg daily, and prescribed doxazosin 2 mg. hydrochlorothiazide was discontinued due to poor adherence and urinary problem. -Continue working on lifestyle modifications, especially smoking cessation -Continue checking home BP -Continue lisinopril 40 mg daily -Continue doxazosin 4 mg daily - 06/13/24 transthoracic echocardiogram Normal LV systolic function, [id number]%. Assessment & Plan (05/15/2024 12:43 PM EDT): -Goal BP < 140 / 90 per JNC-8 and < 130 / 80 per ACC/AHA guideline (Treatment threshold >= 140/90 ) -Elevated today -Co-managed with our pharmacist through [facility] -Treatment Hx: Previously on hydrochlorothiazide 25 mg daily, and prescribed doxazosin 2 mg. hydrochlorothiazide was discontinued due to poor adherence and urinary problem. -Continue working on lifestyle modifications, especially smoking cessation -Continue checking home BP -Continue lisinopril 40 mg daily -Continue doxazosin 4 mg daily -Follow up in 3 mo, sooner if any problem arises Assessment & Plan (02/06/2024 5:32 PM EDT): -Goal BP < 140 / 90 per JNC-8 and < 130 / 80 per ACC/AHA guideline (Treatment threshold >= 140/90 ) -Elevated today, pt attributes it to pain. -Co-managed with our pharmacist through [facility] -Treatment Hx: Previously on hydrochlorothiazide 25 mg daily, and prescribed doxazosin 2 mg. hydrochlorothiazide was discontinued due to poor adherence and urinary problem. -Continue working on lifestyle modifications, especially smoking cessation -Continue checking home BP -Continue lisinopril 40 mg daily -Continue doxazosin 2 mg daily -Follow up in 3 mo, sooner if any problem arises Assessment & Plan (11/13/2023 9:40 AM EST): -Goal BP < 140 / 90 per JNC-8 and < 130 / 80 per ACC/AHA guideline (Treatment threshold >= 140/90 ) -Elevated today, pt attributes it to pain. -Co-managed with our pharmacist through [facility] -Treatment Hx: Previously on hydrochlorothiazide 25 mg daily, and prescribed doxazosin 2 mg. hydrochlorothiazide was discontinued due to poor adherence and urinary problem. -Continue working on lifestyle modifications, especially smoking cessation -Continue checking home BP -Continue lisinopril 40 mg daily -Continue doxazosin 2 mg daily -Follow up in 3 mo, sooner if any problem arises Assessment & Plan (08/19/2023 6:31 AM EST): -Goal BP < 140 / 90 per JNC-8 and < 130 / 80 per ACC/AHA guideline (Treatment threshold >= 140/90 ) -Elevated today, pt attributes it to pain. -Co-managed with our pharmacist through [facility] -Treatment Hx: Previously on hydrochlorothiazide 25 mg daily, and prescribed doxazosin 2 mg. hydrochlorothiazide was discontinued due to poor adherence and urinary problem. -Continue working on lifestyle modifications, especially smoking cessation -Continue checking home BP -Continue lisinopril 40 mg daily -Continue doxazosin 2 mg daily -Follow up in 3 mo, sooner if any problem arises Assessment & Plan (04/23/2023 11:08 AM EDT): -Goal BP < 140 / 90 per JNC-8 and < 130 / 80 per ACC/AHA guideline (Treatment threshold >= 140/90 ) -Co-managed with our pharmacist through [facility] -Treatment Hx: Previously on hydrochlorothiazide 25 mg daily, and prescribed doxazosin 2 mg. hydrochlorothiazide was discontinued due to poor adherence and urinary problem. -Continue working on lifestyle modifications, especially smoking cessation -Continue checking home BP -Continue lisinopril 40 mg daily -Continue doxazosin 2 mg daily -Follow up in 3 mo, sooner if any problem arises Assessment & Plan (11/06/2022 5:59 AM EST): -Goal BP < 140 / 90 per JNC-8 and < 130 / 80 per ACC/AHA guideline (Treatment threshold >= 140/90 ) -Treatment Hx: Previously on hydrochlorothiazide 25 mg daily, and prescribed doxazosin 2 mg. hydrochlorothiazide was discontinued due to poor adherence and urinary problem. Pt has not been taking doxazosin -Continue working on lifestyle modifications, especially smoking cessation -Continue lisinopril 40 mg daily -Add doxazosin 2 mg daily -Refer to [facility] -Follow up in 3 mo, sooner if any problem arises Failed back syndrome 06/29/2015 Assessment & Plan (10/06/2024 6:43 PM EST): MRI on 02/21/18 showed L4-L5 fusion with anterior cages, L5-S1 a small left paracentral disc extrusion next to the L S1 nerve root in the lateral recess, consistent with L S1 radiculopathy symptom. -Seen by neurosurgeon, Dr. Melgar, on 02/26/18. Recommended 4 days trial of - Decadron and PT. Plan for left L5-S1 minimally invasive discectomy if no improvement. -Seen by china painter on 12/26/16. Dx postlaminectomy syndrome s/p anterior L4-L5 fusion with pain in left buttock and posterior thigh. Left SI joint dysfunction. 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 s/p SI joint injection on 01/17/17 and had a great response. s/p L4-L5 ALIF by Dr. Mccann in 2011. Reports symptom improvement with Decadron but following discontinuation the pain returned Previously on opioid analgesic, which was discontinued in 2018 due to cocaine use. Previously tried tramadol which was ineffective. Morphine caused nausea and vomiting. Suboxone caused nausea and vomiting. Previously tried CBD, which helps him relax and sleep, but pt still has pain. Previously tried gabapentin, which caused severe headache. APAP was ineffective NSAIDs are relatively contraindicated due to Hx nephrectomy. Most recent MRI 09/05/21, no indication for surgery. -previously on prgabalin 75mg BID. -Seen by office rental clerk 10/27/21 and advised to continue pregabalin. -Prescribed Tizanidine 2mg. -Patient has tried Physical Therapy and Injection treatment, which pt has not experienced satisfactory outcome -Pt has tried gabapentin, pregabalin, and muscle relaxant. We discussed about tapering down gabapentin as tolerated once we start oxycodone. -Pt will restart oxycodone due to severe pain affecting his BP and functional level. Will refer to FRAMING CONSULTANT. -Continue diclofenac topical and lidoderm patch -Recommended acupuncture Assessment & Plan (02/16/2024 7:36 AM EDT): MRI on 02/21/18 showed L4-L5 fusion with anterior cages, L5-S1 a small left paracentral disc extrusion next to the L S1 nerve root in the lateral recess, consistent with L S1 radiculopathy symptom. -Seen by neurosurgeon, Dr. Melgar, on 02/26/18. Recommended 4 days trial of - Decadron and PT. Plan for left L5-S1 minimally invasive discectomy if no improvement. -Seen by china painter on 12/26/16. Dx postlaminectomy syndrome s/p anterior L4-L5 fusion with pain in left buttock and posterior thigh. Left SI joint dysfunction. 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 s/p SI joint injection on 01/17/17 and had a great response. s/p L4-L5 ALIF by Dr. Mccann in 2011. Reports symptom improvement with Decadron but following discontinuation the pain returned Previously on opioid analgesic, which was discontinued in 2018 due to cocaine use. Previously tried tramadol which was ineffective. Morphine caused nausea and vomiting. Suboxone caused nausea and vomiting. Previously tried CBD, which helps him relax and sleep, but pt still has pain. Previously tried gabapentin, which caused severe headache. APAP was ineffective NSAIDs are relatively contraindicated due to Hx nephrectomy. Most recent MRI 09/05/21, no indication for surgery. -previously on prgabalin 75mg BID. -Seen by office rental clerk 10/27/21 and advised to continue pregabalin. -Prescribed Tizanidine 2mg. -Patient has tried Physical Therapy and Injection treatment, which pt has not experienced satisfactory outcome -Pt has tried gabapentin, pregabalin, and muscle relaxant. We discussed about tapering down gabapentin as tolerated once we start oxycodone. -Pt will restart oxycodone due to severe pain affecting his BP and functional level. Will refer to FRAMING CONSULTANT. -Continue diclofenac topical and lidoderm patch -Recommended acupuncture Assessment & Plan (11/13/2023 9:39 AM EST): MRI on 02/21/18 showed L4-L5 fusion with anterior cages, L5-S1 a small left paracentral disc extrusion next to the L S1 nerve root in the lateral recess, consistent with L S1 radiculopathy symptom. -Seen by neurosurgeon, Dr. Melgar, on 02/26/18. Recommended 4 days trial of - Decadron and PT. Plan for left L5-S1 minimally invasive discectomy if no improvement. -Seen by china painter on 12/26/16. Dx postlaminectomy syndrome s/p anterior L4-L5 fusion with pain in left buttock and posterior thigh. Left SI joint dysfunction. 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 s/p SI joint injection on 01/17/17 and had a great response. s/p L4-L5 ALIF by Dr. Mccann in 2011. Reports symptom improvement with Decadron but following discontinuation the pain returned Previously on opioid analgesic, which was discontinued in 2018 due to cocaine use. Previously tried tramadol which was ineffective. Morphine caused nausea and vomiting. Suboxone caused nausea and vomiting. Previously tried CBD, which helps him relax and sleep, but pt still has pain. Previously tried gabapentin, which caused severe headache. APAP was ineffective NSAIDs are relatively contraindicated due to Hx nephrectomy. Most recent MRI 09/05/21, no indication for surgery. -previously on prgabalin 75mg BID. -Seen by office rental clerk 10/27/21 and advised to continue pregabalin. -Prescribed Tizanidine 2mg. -Patient has tried Physical Therapy and Injection treatment, which pt has not experienced satisfactory outcome -Pt has tried gabapentin, pregabalin, and muscle relaxant. We discussed about tapering down gabapentin as tolerated once we start oxycodone. -Pt will restart oxycodone due to severe pain affecting his BP and functional level. Will refer to FRAMING CONSULTANT. -Continue diclofenac topical and lidoderm patch -Recommended acupuncture Assessment & Plan (08/19/2023 6:44 AM EST): MRI on 02/21/18 showed L4-L5 fusion with anterior cages, L5-S1 a small left paracentral disc extrusion next to the L S1 nerve root in the lateral recess, consistent with L S1 radiculopathy symptom. -Seen by neurosurgeon, Dr. Melgar, on 02/26/18. Recommended 4 days trial of - Decadron and PT. Plan for left L5-S1 minimally invasive discectomy if no improvement. -Seen by china painter on 12/26/16. Dx postlaminectomy syndrome s/p anterior L4-L5 fusion with pain in left buttock and posterior thigh. Left SI joint dysfunction. 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 s/p SI joint injection on 01/17/17 and had a great response. s/p L4-L5 ALIF by Dr. Mccann in 2011. Reports symptom improvement with Decadron but following discontinuation the pain returned Previously on opioid analgesic, which was discontinued in 2017 due to cocaine use. Previously tried tramadol which was ineffective. Morphine caused nausea and vomiting. Suboxone caused nausea and vomiting. Previously tried CBD, which helps him relax and sleep, but pt still has pain. Previously tried gabapentin, which caused severe headache. APAP was ineffective NSAIDs are relatively contraindicated due to Hx nephrectomy. Most recent MRI 09/05/21, no indication for surgery. -previously on prgabalin 75mg BID. -Seen by office rental clerk 10/27/21 and advised to continue pregabalin. -Prescribed Tizanidine 2mg. -Patient has tried Physical Therapy and Injection treatment, which pt has not experienced satisfactory outcome -Pt has tried gabapentin, pregabalin, and muscle relaxant. We discussed about tapering down gabapentin as tolerated once we start oxycodone. -Pt will restart oxycodone due to severe pain affecting his BP and functional level. Will refer to FRAMING CONSULTANT. -Continue diclofenac topical and lidoderm patch -Recommended acupuncture Assessment & Plan (04/23/2023 11:14 AM EDT): MRI on 02/21/18 showed L4-L5 fusion with anterior cages, L5-S1 a small left paracentral disc extrusion next to the L S1 nerve root in the lateral recess, consistent with L S1 radiculopathy symptom. -Seen by neurosurgeon, Dr. Melgar, on 02/26/18. Recommended 4 days trial of - Decadron and PT. Plan for left L5-S1 minimally invasive discectomy if no improvement. -Seen by china painter on 12/26/16. Dx postlaminectomy syndrome s/p anterior L4-L5 fusion with pain in left buttock and posterior thigh. Left SI joint dysfunction. 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 s/p SI joint injection on 01/17/17 and had a great response. s/p L4-L5 ALIF by Dr. Mccann in 2011. Reports symptom improvement with Decadron but following discontinuation the pain returned Previously on opioid analgesic, which was discontinued in 2018 due to cocaine use. Previously tried tramadol which was ineffective. Morphine caused nausea and vomiting. Suboxone caused nausea and vomiting. Previously tried CBD, which helps him relax and sleep, but pt still has pain. Previously tried gabapentin, which caused severe headache. APAP was ineffective NSAIDs are relatively contraindicated due to Hx nephrectomy. Most recent MRI 09/05/21, no indication for surgery. -previously on prgabalin 75mg BID. -Seen by office rental clerk 10/27/21 and advised to continue pregabalin. -Prescribed Tizanidine 2mg. -Patient has tried Physical Therapy and Injection treatment, which pt has not experienced satisfactory outcome -Increase gabapentin 400 mg at bedtime, may increase to tid as tolerated -Will consider retrial of pregabalin if gabapentin is ineffective. -Add diclofenac topical and lidoderm patch -Recommended acupuncture Assessment & Plan (11/06/2022 6:09 AM EST): MRI on 02/21/18 showed L4-L5 fusion with anterior cages, L5-S1 a small left paracentral disc extrusion next to the L S1 nerve root in the lateral recess, consistent with L S1 radiculopathy symptom. -Seen by neurosurgeon, Dr. Melgar, on 02/26/18. Recommended 4 days trial of - Decadron and PT. Plan for left L5-S1 minimally invasive discectomy if no improvement. -Seen by china painter on 12/26/16. Dx postlaminectomy syndrome s/p anterior L4-L5 fusion with pain in left buttock and posterior thigh. Left SI joint dysfunction. Hx pseudo addiction to oxycodone. s/p SI joint injection on 01/17/17 and had a great response. s/p L4-L5 ALIF by Dr. Mccann in 2011. Reports symptom improvement with Decadron but following discontinuation the pain returned Previously on opioid analgesic, which was discontinued in 2018 due to cocaine use. Previously tried tramadol which was ineffective. Morphine caused nausea and vomiting. Suboxone caused nausea and vomiting. Previously tried CBD, which helps him relax and sleep, but pt still has pain. Previously tried gabapentin, which caused severe headache. APAP was ineffective NSAIDs are relatively contraindicated due to Hx nephrectomy. Most recent MRI 09/05/21, no indication for surgery. -previously on prgabalin 75mg BID. -Seen by office rental clerk 10/27/21 and advised to continue pregabalin. -Prescribed Tizanidine 2mg. -Patient has tried Physical Therapy and Injection treatment, which pt has not experienced satisfactory outcome -Restart gabapentin 300 mg at bedtime, may increase to bid -Will consider pregabalin if gabapentin is ineffective. Microscopic hematuria 06/29/2015 Cannabis use, uncomplicated 10/22/2014 Chronic low back pain 06/10/2012 Erectile dysfunction 06/10/2012 Assessment & Plan (08/19/2023 6:38 AM EST): - discuss the effect of opioid on ED and hypogonadism Encounters Date Type Department Care Team Description 01/13/2025 Telephone [facility] [address] [place] [address] Ondina Hylton MD 01/08/2025 Refill [facility] [address] [place] [address] Phyllis Jimenez RN Failed back syndrome 01/08/2025 Telephone [facility] [address] [place] [address] Ondina Hylton MD Med Refill 01/01/2025 Telephone [facility] [address] [place] [address] Ondina Hylton MD may recall 12/30/2024 Orders Only [facility] [address] [place] [address] Emmanuel Alarcon MD 12/30/2024 Refill [facility] [address] [facility] [place] [address] Ondina Hylton MD Hypertension, unspecified type 12/30/2024 Travel 12/15/2024 Telephone [facility] [address] [facility] [place] [address] Ondina Hylton MD 12/10/2024 Refill [facility] [address] [facility] [place] [address] Ondina Hylton MD Failed back syndrome 12/03/2024 Telephone [facility] [address] [facility] [place] [address] Ondina Hylton MD Prior Authorization (Micha WAY Request: Juliane) 11/12/2024 Refill [facility] [address] [facility] [place] [address] Ondina Hylton MD Failed back syndrome 10/24/2024 9:00 AM EST Clinical Support [facility] [address] [facility] [place] [address] Phyllis Jimenez, DARÍO Encounter for monitoring opioid maintenance therapy 10/24/2024 Telephone [facility] [address] [place] [address] Phyllis Jimenez RN 10/24/2024 Travel 10/21/2024 Telephone [facility] [address] [place] [address] Phyllis Jimenez, DARÍO from Last 3 Months Immunizations Name Administration Dates Next Due Hep A, Adult 07/18/2024,11/13/2023 Hep B, adult 07/18/2024,12/11/2023,11/13/2023 Influenza Injectable Quadriv alant Preservative Free IIV4 MDCK 07/02/2023 Influenza injectable quadriv alent IIV4 with preservative 07/22/2018 Influenza injectable quadriv alent preservative free 06/30/2021 Influenza, seasonal, injecta ble, preservative free 09/30/2024 Pfizer Covid-19 Vaccine 12+ 09/30/2024 Pneumococcal Conjugate PCV 20 04/30/2023 Pneumococcal Polysaccharide PPSV23 06/29/2015 TD (adult), 2 Lf tetanus tox oid, preservative free, adsorbed 04/11/2004 Tdap 06/29/2015 Zoster, Recombinant 07/02/2023,04/30/2023 Social History Tobacco Use Types Packs/Day Years Used Date Smoking Tobacco: Former Cigarettes 1 33.5 0 09/17/1989 - 03/31/2023 Passive Smoke Exposure: Past Smokeless Tobacco: Never Tobacco Cessation:Counseling Given: Not Answered Comments:NRT Assisted Quit started 03/31/2023 Alcohol Use Standard Drinks/Week Comments Not Currently 0 (1 standard drink = 0.6 oz pur e alcohol) Depression Answer Date Recorded Patient Health Questionnaire-9 Score 0 09/30/2024 Patient Health Questionnaire-9 Score 0 09/30/2024 Last PHQ-9: Questionnaire Data Not on file 0 09/30/2024 Housing Stability Answer Date Recorded What is [...] Date Recorded Patient Health Questionnaire-2 Score 0 09/30/2024 Sex and Gender Information Value Date Recorded Sex Assigned at Male 07/17/2022 10:17 AM EDT Legal Sex Male 10:17 AM EDT Gender Identity Male 07/17/2022 10:17 AM EDT Sexual Orientation Straight 07/17/2022 10 :17 AM EDT Last Filed Vital Signs Vital Sign Reading Time Taken Comments Blood Pressure 130/78 12/30/2024 1:39 PM EDT Pulse 76 12/30/2024 1:39 PM EDT Temperature 36.5 ??C (97.7 ??F) 09/30/2024 4:02 PM ES T Respiratory Rate 19 09/30/2024 4:02 PM EST Oxygen Saturation 98% 09/30/2024 4:02 PM EST Inhaled Oxygen Concentration - - Weight 85.5 kg (188 lb 6.4 oz) 09/30/2024 4:02 P M EST Height 178.6 cm (5' 10.33 ) 02/07/2024 10:54 AM EDT Body Mass Index 26.78 02/07/2024 10:54 AM EDT Plan of Treatment Upcoming Encounters Date Type Department Care Team (Late st Contact Info) Description 02/20/2025 9:00 AM EDT Clinical Support [facility] [address] [place] [address] Phyllis Jimenez RN [address] [place] [address] Health Maintenance Due Date Last Done Comments CT Colonography 1968 Colonoscopy 1968 Colorectal Cancer Screening 1968 FIT DNA/Cologuard 1968 FIT 1968 FOBT 1968 Sigmoidoscopy 1968 Lung Cancer Screening 2018 Dental Oral Exam 02/23/2023 08/24/2022 Dental Prophylaxis 02/23/2023 08/24/2022 Dental X-Ray: Bitewings 08/25/2023 08/24/2022 SDOH Screening 01/29/2025 01/30/2024 DTaP/Tdap/Td Vaccines (2 - Td or Tdap) 06/29/2025 06/29/2015, 04/11/2004 Dental X-Ray: Full Mouth 08/25/2025 08/24/2022 Alcohol/Substance Use Screening 09/30/2025 09/30/2024 Depression Screening 09/30/2025 09/30/2024, 09/30/19 Tobacco Screening 10/06/2025 10/06/2024 Lipid Panel 11/13/2028 11/13/2023, 11/16/2022 RSV Patients and Patients Aged 60 years or older (1 - 1-dose 75+ series) 2043 HIV Screening Completed 04/20/2021 Hepatitis C Screening Completed 04/20/2021 Pneumococcal Vaccine: 50+ Years Completed 04/30/2023, 06/29/2015 Zoster Vaccines Completed 07/02/2023, 04/30/2023 Hepatitis A Vaccines Aged Out 07/18/2024, 11/13/19 No longer eligible based on patient's age to complete this topic Hepatitis B Vaccines Completed 07/18/2024, 12/11/2023, 11/13/2023 COVID-19 Vaccine Completed 09/30/2024, , 02/05/2021, Additional history exists Influenza Vaccine Completed 09/30/2024, , 06/30/2021, Additional history exists HIB Vaccines Aged Out No longer eligi ble based on patient's age to complete this topic HPV Vaccines Aged Out No longer eligi ble based on patient's age to complete this topic IPV Vaccines Aged Out No longer eligi ble based on patient's age to complete this topic Meningococcal Vaccine Aged Out No alberto dali eligible based on patient's age to complete this topic RSV under 20 months Aged Out No longe r eligible based on patient's age to complete this topic Rotavirus Vaccines Aged Out No longer eligible based on patient's age to complete this topic Goals Goal Patient Goal Type Associated Problems Recent Progress Patient-Stated? Author Blood Pressure < 140/90 Blood Pressure 130/78( 025 1:39 PM EDT) No Dejuan Franco, PharmD Quit using tobacco (cigarettes, smokeless, etc) Tobacco Use No Dejuan Franco, PharmD Procedures Procedure Name Priority Date/Time Associated Diagnosis Comments POCT MIGUELITO-14 URINE DRUG SCREEN Routine 10/24/2024 9:04 AM EST Encounter for monitoring opioid maintenance therapy LIPID PANEL WITH REFLEX TO DIRECT LDL Routine 11/13/2023 10:00 AM EST Dyslipidemia Full PROPHYLAXIS - ADULT Routine 08/24/2022 10:30 AM EST INTRAORAL - COMPLETE SERIES OF RADIOGRAPHIC IMAGES Routine 08/24/2022 10:30 AM EST PERIODIC ORAL EVALUATION - ESTABLISHED PATIENT Routine 08/24/2022 10:30 AM EST ZZZ HISTORICAL HEPATITIS C ANTIBODY RFLX Routine 04/20/2021 8:45 AM EDT ZZZ HISTORICAL HEPATITIS B SURFACE ANTIGEN* Routine 04/20/2021 8:45 AM EDT from Last 3 Months or Most Recently Relevant to Health Maintenance Results * POCT MIGUELITO-14 Urine Drug Screen (10/24/2024 9:04 AM EST) THC Positive Oxycodone Screen, Urine Positive Urine Urine specimen obtained by clean catch procedure / Unknown 10/24/2024 9:04 AM EST Narrative Phyllis Jimenez RN - 10/24/2024 9:04 AM EST .UTOX cup Lot#[id number] Exp. 06/11/26 Internal Pass Control Ondina Hylton MD POINT OF CARE TEST ENTER/EDIT OR DERABLES Final Result * Lipid Panel with Reflex to Direct LDL (11/13/2023 10:00 AM EST) Triglycerides 36 <150 mg/dL [facility] Comment:Desirable Triglyceri de: less than 150 mg/dLBorderline High Triglyceride 150-199 mg/dLHigh Triglyceride: 200-499 mg/dLVery High Triglyceride: greater than or equal to 5OO mg/dL Cholesterol 142 <200 mg/dL [facility] Comment:Desirable Cholestero l: less than 200 mg/dLBorderline High Cholesterol: 200-239 mg/dLHigh Cholesterol: greater than 239 mg/dL LDL Cholesterol Calculated 81 <100 mg/dL [facility] Comment:Desirable LDL: less than 100 mg/dLNear Optimal/Above Optimal LDL: 110- 129 mg/dLBorderline High LDL: 130-159 mg/dLHigh LDL: 160-189 mg/dLVery High LDL: greater than or equal to 190 mg/dL HDL Cholesterol 54 >40 mg/dL [facility] Comment:Desirable HDL: great er than 40 mg/dL Note: This HDL assay may give artificially low results in patients with liver disease. Blood 11/13/2023 10:0 0 AM EST 11/13/2023 11:09 AM EST us Ondina Hylton MD LAB BLOOD ORDERABLES Final Resul t Performing Organization Address [facility] Co de Phone Number [facility] [address] [place] [address] [phone] * HEPATITIS C ANTIBODY RFLX (04/20/2021 8:45 AM EDT) Hepatitis C Antibody Nonreactive Nonreactive [facility] Comment: Antibodies to HCV not detected; does not exclude early acute HCV infection. 04/20/2021 8:45 AM EDT us Ondina Hylton MD HISTORICAL/NON ORDERABLE LABS Fi nal Result Performing Organization Address [facility] Phone Number [facility] [address] * HEPATITIS B SURFACE ANTIGEN* (04/20/2021 8:45 AM EDT) Pathologist [facility] Hepatitis B Surface Antigen Negative Negative [facility] HIV AB/AG Nonreactive Nonreactive [facility] Comment: HIV-1 p24 Ag and/or HIV-1/HIV-2 Ab not detected. ?? A test result that is nonreactive does not exclude the possibility of exposure to or infection with HIV-1 and/or HIV-2. Nonreactive results in this assay for individuals with prior exposure to HIV-1 and/or HIV-2 may be due to antigen and antibody levels that are below the limit of detection of this assay. ?? The [facility] [employer] [facility] Supervisor HIV Ag/Ab Combo assay result and supplemental assay results should be interpreted in conjunction with the patient's clinical presentation, history and other laboratory results. ??If the results are inconsistent with clinical evidence, additional testing is suggested to confirm the result. 04/20/2021 8:45 AM EDT us Ondina Hylton MD HISTORICAL/NON ORDERABLE LABS Fi nal Result Performing Organization Address [facility] Co de Phone Number [facility] [address] from Last 3 Months or Most Recently Relevant to Health Maintenance Insurance [address] [place] [address] MEDICARE [id number] [address] [place] [address] [id number] [place] [address] [place] [address] [address] [place] [address] [place], [place] [address] [place] [address] Care Teams Environmental Law Professor Relationship Specialty Start Date End Date Ondina Hylton MD [address] [place] [id number] PCP - General Family Medicine 06/11/19
--- OUTSIDE RECORDS SUMMARY | 2025-01-15 09:58 | XMS_ITS | Encounter Summary ---
Demographics Address [address] [place] [address] Mobile Phone Home Phone Email Address Preferred Language es Marital Status Zoroastrian Affiliation Unknown Race Other Race Ethnic Group Hong Konger Author Organization [employer] Address [address] [facility] 7t [place] [address] Care Team Providers Care Relationship Consultant Name Role Phone Ondina Hylton MD Primary Care Provider [phone] Dejuan Franco PharmD Unavailable [phone] Encounter Details Date Type Department Care Team (Late st Contact Info) Description 02/16/2024 Orders Only [facility] [address] [place], [place] [phone] Ondina Hylton MD [address] [place], [place] [phone] Onychomycosis (Primary Dx); Therapeutic drug monitoring Social History Tobacco Use Types Packs/Day Years [...] Description 02/20/2025 9:00 AM EDT Clinical Support [facility] [address] [place] [address] Phyllis Jimenez, DARÍO [address] [place] [address] documented as of this encounter Goals Goal Patient Goal Type Associated Problems Recent Progress Patient-Stated? Author Blood Pressure < 140/90 Blood Pressure 130/78( 025 1:39 PM EDT) No Dejuan Franco, PharmD Quit using tobacco (cigarettes, smokeless, etc) Tobacco Use No Dejuan Franco, PharmD documented as of this encounter Procedures Procedure Name Priority Date/Time Associated Diagnosis Comments HEPATIC FUNCTION PANEL Routine 07/25/2024 9:12 AM EST Onychomycosis Therapeutic drug monitoring documented in this encounter Results * Hepatic Function Panel (07/25/2024 9:12 AM EST) Bilirubin, Total 0.4 0.0 - 1.0 mg/dL [facility] Bilirubin, Direct 0.1 0.0 - 0.5 mg/dL [facility] Aspartate Amino Transferase 24 5 - 37 U/L [facility] Alanine Aminotransferase 21 0 - 40 U/L [facility] Total Protein 7.0 6.5 - 8.0 g/dL [facility] Albumin Level 4.2 3.5 - 5.0 g/dL [facility] Alkaline Phosphatase 69 39 - 117 U/L [facility] Blood Venous blood specimen / Unknown 07/25/2024 9:12 AM EST 07/25/2024 9:12 AM EST Ondina Hylton MD LAB BLOOD ORDERABLES Final Resul t [facility] [address] [place] [address] [phone] documented in this encounter Visit Diagnoses Diagnosis Onychomycosis- Primary Dermatophytosis of nail Therapeutic drug monitoring Encounter for therapeutic drug monitoring documented in this encounter Additional Health Concerns Assessment Noted Time PHQ-9 Depression Total Score: 0 04/17/20 23 11:07 AM EDT documented as of this encounter Care Teams Relationship Consultant Relationship Specialty Start Date End Date Ondina Hylton MD [address] [place] [address] PCP - General Family Medicine 06/11/19 Dejuan Franco, PharmD [address] [place] [address] Pharmacist Internal Medicine 03/30/23 12/29/24 documented as of this encounter
--- OUTSIDE RECORDS SUMMARY | 2025-01-15 09:58 | XMS_ITS | Encounter Summary ---
Author Organization [employer] Address [address] [facility] 7t [place] [address] Care Team Providers Care Returned Materials Inspector Name Role Phone Ondina Hylton MD Primary Care Provider [phone] Encounter Details Date Type Department Care Team (Late st Contact Info) Description 12/30/2024 Orders Only [facility] [address] [place], [place] [phone] Emmanuel Alarcon MD [address] [place], [place] [phone] Social History Tobacco Use Types Packs/Day Years [...] Description 02/20/2025 9:00 AM EDT Clinical Support [facility] [address] [place] [address] Phyllis Jimenez, DARÍO [address] [place] [address] documented as of this encounter Goals Goal Patient Goal Type Associated Problems Recent Progress Patient-Stated? Author Blood Pressure < 140/90 Blood Pressure 130/78( 025 1:39 PM EDT) No Dejuan Franco, PharmD Quit using tobacco (cigarettes, smokeless, etc) Tobacco Use No Dejuan Franco, PharmD documented as of this encounter Visit Diagnoses Not on filedocumented in this encounter Additional Health Concerns Assessment Noted Time PHQ-9 Depression Total Score: 0 09/30/19 25 4:01 PM EST documented as of this encounter Care Teams Returned Materials Inspector Relationship Specialty Start Date End Date Ondina Hylton MD [address] [place] [address] PCP - General Family Medicine 06/11/19 documented as of this encounter
--- OUTSIDE RECORDS SUMMARY | 2025-01-15 09:58 | XMS_ITS | Encounter Summary ---
Author Organization [employer] Address [address] [facility] 7t [place] [address] Care Team Providers Care Customer Professional Name Role Phone Ondina Hylton MD Primary Care Provider [phone] Encounter Details Date Type Department Care Team ([facility] st Contact Info) Description 01/13/2025 Telephone [facility] [address] [place], [place] [phone] Ondina Hylton MD [address] [place], [place] [phone] Social History Tobacco Use Types Packs/Day Years [...] AM EDT documented as of this encounter Miscellaneous Notes * Telephone Encounter - Meche Bermudez RN - 01/13/2025 11:52 AM EDT See message below. No lung screen noted in chart. See note for refills only. RN will forward to to review and advise team nurses. TY Tc from Melissa at [facility] returning call to regarding lung screening. Melissa stated pt is already established with at [facility]. If any questions contact Melissa at [phone] * Telephone Encounter - Cristina Minaya - 01/13/2025 11:18 AM EDT Tc from Melissa at [facility] returning call to regarding lung screening. Melissa schwartz pt is already established with at [facility]. If any questions contact Melissa at [phone] documented in this encounter Plan of Treatment Upcoming Encounters Date Type Department Care Team (Late st Contact Info) Description 02/20/2025 9:00 AM EDT Clinical Support [address] [address] Phyllis Jimenez, RN [address] [place] [address] documented as of this encounter Goals Goal Patient Goal Type Associated Problems Recent Progress Patient-Stated? Author Blood Pressure < 140/90 Blood Pressure 130/78( 025 1:39 PM EDT) No Dejuan Franco, ShantanuD Quit using tobacco (cigarettes, smokeless, etc) Tobacco Use No Dejuan Franco PharmD documented as of this encounter Visit Diagnoses Not on filedocumented in this encounter Additional Health Concerns Assessment Noted Time PHQ-9 Depression Total Score: 0 09/30/19 25 4:01 PM EST documented as of this encounter Care Teams Customer Professional Relationship Specialty Start Date End Date Ondina Hylton MD [address] [place] [address] PCP - General Family Medicine 06/11/19 documented as of this encounter
[2025-01-15 12:25] LABS: Alanine Aminotransferase 24 U/L (0-40); Alkaline Phosphatase 71 U/L (39-117); Anion Gap 12 (12-20); Aspartate Amino Transferase 36 U/L (5-37); Bilirubin Total 0.4 mg/dL (0.0-1.0); Blood Urea Nitrogen 13 mg/dL (9-16); Calcium 9.3 mg/dL (8.4-10.2); Carbon Dioxide 25 mmol/L (22-29); Chloride 110 mmol/L (96-108); Cholesterol 129 mg/dL (<200); Estimated Glomerular Filt Rate > 60; Glucose Random 85 mg/dL (60-115); HDL Cholesterol 51 mg/dL (>40); LDL Cholesterol Calculated 70 mg/dL (<100); Sodium 143 mmol/L (135-145); Total Protein 6.8 g/dL (6.5-8.0); Triglycerides 43 mg/dL (<150)
[2025-01-15 12:34] LABS: Reflex LDLD? No
== END 2025-01-15 09:13 | disposition home or self-care (01) ==
LOC: HO.HHCL 09:12
PROVIDERS: Visit Provider Family Medicine
DX: E78.5 Hyperlipidemia, unspecified (principal); I10 Essential (primary) hypertension
CPT/HCPCS: 36415; 80053; 80061

== ENCOUNTER → 2025-02-19 08:23 | Outpatient (BNV) | payer MEDICARE, MEDICAID, SELFPAY | PROVIDERS: PCP Family Medicine; Visit Provider Radiology Diagnostic Radiology | DX: N28.1 Cyst of kidney, acquired (principal); N28.89 Other specified disorders of kidney and ureter | CPT/HCPCS: 74183 ==

== ENCOUNTER 2025-02-19 08:29 | Outpatient (REF) | payer MEDICARE, MEDICAID, SELFPAY ==
--- NOTE | ~2025-02-19 | MR_ITS ---
EXAMINATION: MR ABDOMEN WITHOUT THEN WITH IV CONTRAST HISTORY: N28.1 - Cyst of kidney, acquired COMPARISON: Correlation is made with the CT of the abdomen with contrast dated 07/23/2024. TECHNIQUE: Axial in and out of phase T1-weighted gradient echo, axial diffusion weighted, and axial and coronal HASTE T2 with fat saturation images were obtained through the abdomen. Subsequently, fat suppressed axial and coronal T1-weighted images were obtained after the intravenous administration of 9 mL Gadavist. FINDINGS: There is no significant loss of signal intensity within the liver on opposed phase imaging to suggest steatosis. There is a 6 mm cyst in segment VIII. There is no enhancing liver mass. The hepatic and portal veins are patent. There is no intra or extrahepatic biliary ductal dilatation. The gallbladder is unremarkable. The spleen, pancreas, and adrenals are unremarkable. There are postsurgical changes involving the lower pole of the right kidney. There is mild dilatation of the right renal collecting system without change. There is a 1.4 cm cyst at the lower pole. There are tiny left renal cysts measuring up to 9 mm. There is no left hydronephrosis. No retroperitoneal lymphadenopathy or ascites is identified in the upper abdomen. The visualized bones demonstrate normal marrow signal intensity. MR/MR abdomen wo/w con IMPRESSION: 1. Postsurgical changes involving the right kidney. 2. Hepatic and bilateral renal cysts as described. Electronically signed by: Parish Chapin MD 02/19/2025 10:13 AM EDT
--- OUTSIDE RECORDS SUMMARY | 2025-02-19 08:46 | XMS_ITS | Encounter Summary ---
Demographics Address [address] [facility] [address] [place] [address] Mobile Phone Home Phone Email Address Preferred Language es Marital Status Buddhist Affiliation Unknown Race Other Race Ethnic Group Unknown Author Organization [employer] Address [address] [place] [address] 7t [place] [address] Care Team Providers Care Office Analyst Name Role Phone Ondina Hylton MD Primary Care Provider [phone] Dejuan Franco PharmD Unavailable [phone] Reason for Referral * Imaging (Routine) - Closed Specialty Diagnoses / Procedures Referred By Justyn napier Referred To Contact Cardiology Diagnoses Chronic pain of right knee Right leg pain Claudication (CMS/HCC) 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) Atherosclerosis of right leg (CMS/HCC) Procedures Vascular US lower extremity arterial duplex bilateral with complete Doppler Ondina Hylton MD [address] [place] [address] Phone: tel: fax: [address] Phone: tel: fax: Referral ID Status Reason Start Date Expiration Date V isits Requested Visits Authorized [id number] Closed Perform Procedure 05/22/2024 05/22/2025 1 1 Encounter Details Date Type Department Care Team (Late st Contact Info) Description 05/22/2024 Orders Only [facility] [address] [place], [place] [phone] Ondina Hylton MD [address] [place], [place] [phone] Claudication (CMS/HCC) (Primary Dx); Chronic pain of right knee; Right leg pain; 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 Author Blood Pressure < 140/90 Blood Pressure 130/78( 025 1:39 PM EDT) No Dejuan Franco, PharmD Quit using tobacco (cigarettes, smokeless, etc) Tobacco Use No Dejuan Franco, PharmD documented as of this encounter Procedures Procedure Name Priority Date/Time Associated Diagnosis Comments [facility] LOWER EXTREMITY ARTERIAL DUPLEX BILATERAL Routine 06/17/2024 1:56 PM EDT documented in this encounter Results * [facility] Lower Extremity Arterial Duplex Bilateral (06/17/2024 1:56 PM EDT) 06/17/2024 1:56 PM EDT Narrative [facility] - 06/19/2024 9:07 AM EDT ? [facility] ?[address] ?[place] [address] ? Ultrasound Report ? Signed ? Patient: Gino Jang ?MR#: [id number] ? : 1970 ?Acct:[id number] ? Age/Sex: 53 / M ?ADM Date: 06/17/24 ? Loc: HO.US ? Attending Dr: Ondina Hylton MD ? Ordering Physician: Ondina Hylton MD ?? Date of Service: 06/17/24 ?? Procedure(s): US arterial duplex LE BI ?? Accession Number(s): [id number] ? cc: Ondina Hylton MD ? EXAMINATION: [...] DD/ 1356 ? TD/TT: 06/17/24 1421 ? Thermospray Operator: ? Procedure Note Donotuseinterpreter, Image - 06/19/[address] [address] Ultrasound Report Signed Patient: Gino JangMR#: [id number] : 1970Acct:[id number] Age/Sex: 53 / MADM Date: 06/17/24 Loc: HO.US Attending Dr: Ondina Hylton MD Ordering Physician: Ondina Hylton MD Date of Service: 06/17/24 Procedure(s): US arterial duplex LE BI Accession Number(s): [id number] cc: Ondina Hylton MD EXAMINATION: Noninvasive assessment [...] 06/19/24 0904 DD/ 1356 TD/TT: 06/17/24 1421 Thermospray Operator: us Ondina Hylton MD CV VASCULAR PROCEDURES Edited Re sult - Final [facility] [address] [place] [address] documented in this encounter Visit Diagnoses Diagnosis Claudication (CMS/HCC)- Primary Unspecified peripheral vascular disease Chronic pain of right knee Right leg pain Pain in soft tissues of limb 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
[2025-02-19] MEDS: gadobutroL 10 ML VIAL IVPUSH (09:29)
== END 2025-02-19 08:30 | disposition home or self-care (01) ==
LOC: HO.MRI 08:29
PROVIDERS: PCP Family Medicine; Visit Provider Nurse Practitioner Family
DX: N28.1 Cyst of kidney, acquired (principal); Z90.5 Acquired absence of kidney
CPT/HCPCS: 74183; A9585

== ENCOUNTER 2025-03-02 10:26 | Outpatient (AMB) | payer MEDICARE, MEDICAID, SELFPAY ==
[2025-03-02 10:30] VITALS: BP 120/70; PULSE 92; O2SAT 95; BMI 27.7
--- NOTE | 2025-03-02 10:30 | A.OFFVIS_ITS ---
Vital Signs 03/02/25 10:30 Height 5 ft 8 in Weight 181 lb 14.102 oz BMI 27.7 BP 120/70 Blood Pressure Location Lt brachial Position Sitting Pulse 92 Pulse Source Pulse Oximeter Pulse Oximetry (%) 95 Oxygen Delivery Method Room Air Intake Visit Reasons: Asthma Intake Note: pt is here for follow up and states little wheeze Senior Policy Associate Required: No Allergies pravastatin Allergy (Verified 03/02/25 10:37) myalgias Medication List - Last Reconciled 03/02/25 by Alejandrina Pena MD albuterol sulfate 90 mcg/actuation 2 puffs inhalation Q6H PRN doxazosin 2 mg PO BEDTIME fluticasone furoate-vilanterol 100-25 mcg/dose (Breo Ellipta) 1 inh inhalation DAILY gabapentin 600 mg PO TID lisinopril 40 mg PO DAILY rosuvastatin 5 mg PO DAILY tiotropium bromide (Spiriva with HandiHaler) 1 cap inhalation DAILY Do you need a note to return to daycare/school/sports/work: No HPI HPI Asthma: Details: This 54 years old gentleman, with history of smoking up until 2022 and with diagnosis of COPD comes for follow-up after 6 months. Complains of mild intermittent cough, no definite wheezing attacks but he does feel tightness in the throat especially since he stopped using Spiriva and haler. He continues to use Breo 100-25 once a day, He uses albuterol only once in a while Claims that he is not smoking since 2022 . He did have a low-dose CT scan back in 2022 and missed it last year. [facility] Medical History Ex-smoker for less than 1 year Pulmonary nodule Kidney cyst, acquired COPD (chronic obstructive pulmonary disease) Smoker Surgical History History of lumbar fusion History of appendectomy (~10/1998) History of partial nephrectomy (~09/1998) Social History Patient Tobacco Use Status: Former Tobacco user Tobacco use type: Cigarette Cigarette Packs Per Day: 0.5 Cigarettes Per Day: 7 Years Smoked: 34 (onset 14, 1ppd x 36yr 35+PYH) Review of Systems Const All systems reviewed & are unremarkable except as noted in HPI and below Denies snoring Eyes Reports no additional complaints ENT Reports no additional complaints Card Denies chest pain, Denies irregular heart rhythm, Denies leg edema and Reports dyspnea on exertion (MILD) Resp Reports cough, Reports dyspnea on exertion (MILD), Denies snoring and Denies wheezing GI Reports no additional complaints Reports no additional complaints Musc Reports no additional complaints Skin/Breast Reports system reviewed and no additional complaints, except as documented Neuro Reports no additional complaints Endo Reports no additional complaints Aller/Immun Reports no additional complaints and Denies wheezing Physical Exam Vital Signs: Last Vital Signs Pulse 92 03/02/25 10:30 BP 120/70 03/02/25 10:30 Pulse Ox 95 03/02/25 10:30 Oxygen Delivery Method Room Air 03/02/25 10:30 BMI result Body Mass Index 27.7 Const General: comfortable, no acute distress, alert and awake Orientation/consciousness: patient oriented x3 HEENT Head: Yes normal to inspection General nose exam: No nasal polyps present and No nasal discharge present Face and sinus: Yes sinuses nontender Mouth: oropharynx normal Throat: Yes posterior oropharynx normal Eyes General: appearance normal, both eyes and all related structures Neck Neck: Yes normal visual inspection, Yes no lymphadenopathy, Yes trachea midline and Yes no JVD Thyroid: Thyroid normal Chest Chest palpation & inspection: normal inspection of the chest, normal palpation of entire chest wall and no tenderness Resp Other: Percussion note resonant, has equal breath sounds on both sides ,slightly prolonged expiratory phase. No wheezes or rhonchi are heard. Cardio Palpation: normal PMI Rate: regular rate Rhythm: regular rhythm Heart sounds: no gallops and no murmurs GI Palpation (GI): Soft to palpation, nontender, No hepatosplenomegaly present and no masses Auscultation: normal bowel sounds Back/Spine/Pelvis Thoracic/Lumbar Spine: thoracic and lumbar spine normal to inspection, thoraco- lumbar ROM limited and thoraco-lumbar spasm Skin General skin exam: no rashes or lesions noted Neuro General: patient oriented x3 and no focal motor deficits Cranial nerves: Yes CN's II-XII intact bilaterally Extrem General: Yes normal to inspection, Yes no clubbing, cyanosis or edema and Yes no calf tenderness Psych Appearance: grossly normal and well kempt Speech and movement: Normal speech and movement present Office Procedures Spirometry Testing Spirometry Comments: In office spirometry completed with results given to Dr Pena. [address]48- Spirometry Results Reviewed Results Reviewed: Spirometry performed in the office today. FVC= 115 % FEV1=73 % FEV1/FVC= 50 FEEF 35 % SPIROMETRY STILL SHOWS THAT HE HAS MODERATELY SEVERE OBSTRUCTIVE AIRWAY DISORDER. THE FLOW VOLUMES ARE DEFINITELY IMPROVED SINCE 2022. Assessment & Plan Assessment & Plan (1) COPD (chronic obstructive pulmonary disease): Comment: HE HAS MODERATELY SEVERE OBSTRUCTIVE AIRWAY DISORDER. Relatively asymptomatic since he quit smoking 1 year ago. CLAIMS THAT HIS SYMPTOMS ARE SLIGHTLY WORSE SINCE HE STOPS USING SPIRIVA. SPIROMETRY DOES CONFIRM MODERATELY SEVERE OBSTRUCTIVE AIRWAY DISORDER BUT THE FLOW VOLUMES ARE SLIGHTLY IMPROVED SINCE 2022. Code(s): J44.9 - Chronic obstructive pulmonary disease, unspecified Category: Medical Plan: ADVISED TO CONTINUE USING BREO 100-251 INHALATION DAILY, THOROUGHLY RINSE. THE THROAT OF 2 USING THIS INHALER WILL RESTART HIM ON SPIRIVA HANDIHALER. 1 INHALATION DAILY ALBUTEROL HFA 2 PUFFS. Q 4-6 HOURS P.R.N. (2) Ex-smoker for less than 1 year: Comment: Patient has longstanding history of smoking but luckily he did quit in 2022 . Code(s): Z78.9 - Other specified health status Category: Social Hx Plan: Commended for not. Going back to smoking Advise that he should continue to have annual lung screening with LD CT. (3) Lung nodule seen on imaging study: Comment: Patient has a pulmonary nodule in right lower lobe 1.8 x 1.7 CMs . Has had navigational transbronchial biopsy , which was negative for neoplasm. He is being followed by Dr. Neff . Code(s): R91.1 - Solitary pulmonary nodule Category: Medical Plan: He is reminded about having annual lung scan, And is active in our lung screening program. Orders: Orders AMB Spirometry Testing Today J44.9 - Chronic obstructive pulmonary disease, unspecified Coding Level of Care Code Est Pt Level 3 (72946) Diagnoses COPD (chronic obstructive pulmonary disease) J44.9 Ex-smoker for less than 1 year Z78.9 Lung nodule seen on imaging study R91.1 CPT Codes Spirometry - CPT: 95870- Spirometry ([id number])
--- OUTSIDE RECORDS SUMMARY | 2025-03-02 11:39 | XMS_ITS | Encounter Summary ---
Demographics Address [address] [facility] [address] [place] [address] Mobile Phone Home Phone Email Address Preferred Language es Marital Status Jewish Affiliation Unknown Race Other Race Ethnic Group Unknown Author Organization [employer] Address [address] [place] [address] 7t [place] [address] Care Team Providers Care Integration Software Developer Name Role Phone Ondina Hylton MD Primary Care Provider [phone] Dejuan Franco PharmD Unavailable [phone] Reason for Referral * Imaging (Routine) - Closed Specialty Diagnoses / Procedures Referred By Justyn napier Referred To Contact Cardiology Diagnoses Chronic pain of right knee Right leg pain Claudication (CMS/HCC) Atherosclerosis of [place] artery of left leg with rest pain (CMS/HCC) Atherosclerosis of right leg (CMS/HCC) Procedures Vascular US lower extremity arterial duplex bilateral with complete Doppler Ondina Hylton MD [address] [place] [address] Phone: tel: fax: [address] Phone: tel: fax: Referral ID Status Reason Start Date Expiration Date V isits Requested Visits Authorized [id number] Closed Perform Procedure 05/22/2024 05/22/2025 1 1 Encounter Details Date Type Department Care Team (Late st Contact Info) Description 05/22/2024 Orders Only [facility] [address] [place], [place] [phone] Ondina Hylton MD [address] [place], [place] [phone] Claudication (CMS/HCC) (Primary Dx); Chronic pain of right knee; Right leg pain; Atherosclerosis of [place] artery of left leg with rest pain [...] Care Team (Late st Contact Info) Description 06/19/2025 9:00 AM EDT Clinical Support [address] [address] Phyllis Jimenez, DARÍO [address] [facility] [place] [address] documented as of this encounter Goals Goal Patient Goal Type Associated Problems Recent Progress Patient-Stated? Author Blood Pressure < 140/90 Blood Pressure 130/78( 025 1:39 PM EDT) No Dejuan Franco, PharmD Quit using tobacco (cigarettes, smokeless, etc) Tobacco Use No Dejuan Franco, PharmD documented as of this encounter Procedures Procedure Name Priority Date/Time Associated Diagnosis Comments [facility] LOWER EXTREMITY ARTERIAL DUPLEX BILATERAL Routine 06/17/2024 1:56 PM EDT documented in this encounter Results * [facility] Lower Extremity Arterial Duplex Bilateral (06/17/2024 1:56 PM EDT) 06/17/2024 1:56 PM EDT Narrative [facility] - 06/19/2024 9:07 AM EDT ? [facility] ?[address] ?[place] [address] ? Ultrasound Report ? Signed ? Patient: Gino Jang ?MR#: [id number] ? : 1970 ?Acct:[id number] ? Age/Sex: 53 / M ?ADM Date: 06/17/24 ? Loc: HO.US ? Attending Dr: Ondina Hylton MD ? Ordering Physician: Ondina Hylton MD ?? Date of Service: 06/17/24 ?? Procedure(s): US arterial duplex LE BI ?? Accession Number(s): [id number] ? cc: Ondina Hylton MD ? EXAMINATION: [...] DD/ 1356 ? TD/TT: 06/17/24 1421 ? Chinese Medicine Practitioner: ? Procedure Note Donotuseinterpreter, Image - 06/19/[address] [address] Ultrasound Report Signed Patient: Gino JangMR#: [id number] : 1970Acct:[id number] Age/Sex: 53 / MADM Date: 06/17/24 Loc: HO.US Attending Dr: Ondina Hylton MD Ordering Physician: Ondina Hylton MD Date of Service: 06/17/24 Procedure(s): US arterial duplex LE BI Accession Number(s): [id number] cc: Ondina Hylton MD EXAMINATION: Noninvasive assessment [...] 06/19/24 0904 DD/ 1356 TD/TT: 06/17/24 1421 Chinese Medicine Practitioner: us Ondina Hylton MD CV VASCULAR PROCEDURES Edited Re sult - Final [facility] [address] [place] [address] documented in this encounter Visit Diagnoses Diagnosis Claudication (CMS/HCC)- Primary Unspecified peripheral vascular disease Chronic pain of right knee Right leg pain Pain in soft tissues of limb Atherosclerosis of [place] artery of left leg with rest pain (CMS/HCC) Atherosclerosis of right leg (CMS/HCC) documented in this encounter Additional Health Concerns Assessment Noted Time PHQ-9 Depression Total Score: 0 04/17/20 23 11:07 AM EDT documented as of this encounter Care Teams Integration Software Developer Relationship Specialty Start Date End Date Ondina Hylton MD [address] [place] [address] PCP - General Family Medicine 06/11/19 Dejuan Franco, ShantanuD [address] [place] [address] Pharmacist Internal Medicine 03/30/23 12/29/24 documented as of this encounter
== END 2025-03-02 11:00 | disposition home or self-care (01) ==
LOC: HO.HPS 10:27
PROVIDERS: PCP Family Medicine; Visit Provider Internal Medicine
DX: J44.9 Chronic obstructive pulmonary disease, unspecified (principal); Z78.9 Other specified health status; R91.1 Solitary pulmonary nodule
CPT/HCPCS: 94010; 99213

== ENCOUNTER → 2025-03-02 10:26 | Outpatient (BNVA) | payer MEDICARE, MEDICAID, SELFPAY | PROVIDERS: PCP Family Medicine; Visit Provider Internal Medicine | DX: J44.9 Chronic obstructive pulmonary disease, unspecified (principal); R91.1 Solitary pulmonary nodule; Z78.9 Other specified health status | CPT/HCPCS: 94010; 99212 ==

== ENCOUNTER 2025-03-05 13:39 | Outpatient (AMB) | payer MEDICARE, MEDICAID, SELFPAY ==
--- NOTE | 2025-03-05 13:38 | A.OFFVIS_ITS ---
Intake Visit Reasons: MRI follow up Intake Note: Patient present for follow up MRI Urology Medication:doxazosin Antibiotic Allergy:none Blood Thinner:none Todays PVR:0 ml's Angiography Nurse Required: Yes Angiography Nurse Services: Angiography Nurse Present Angiography Nurse Name: Tiera Johansen126 Allergies pravastatin Allergy (Verified 03/05/25 14:07) myalgias Medication List - Last Reconciled 03/05/[address] albuterol sulfate 90 mcg/actuation 2 puffs inhalation Q6H PRN doxazosin 2 mg PO BEDTIME fluticasone furoate-vilanterol 100-25 mcg/dose (Breo Ellipta) 1 inh inhalation DAILY gabapentin 600 mg PO TID lisinopril 40 mg PO DAILY rosuvastatin 5 mg PO DAILY tiotropium bromide (Spiriva with HandiHaler) 1 cap inhalation DAILY 30 days HPI Comments Details: Gino is a pleasant 54-year-old [place]-speaking male patient of Dr. Hylton. He has a past medical history of suspicious pulmonary nodule negative for malignancy, COPD, and nephrolithiasis. He presents to the office today for follow-up of his history of nephrolithiasis and renal cysts status post right- sided partial nephrectomy. Recent MRI imaging renal mass protocol results were reviewed with the patient today 03/11 there is a 6 mm cyst, there are postsurgical changes involving the lower pole of the right kidney. There is mild dilatation of the right renal collecting system without change. There is a 1.4 cm cyst at the lower pole. There are tiny left renal cysts measuring up to 9 mm. There is no left hydronephrosis. No retroperitoneal lymphadenopathy or ascites is identified in the upper abdomen. The visualized bones demonstrate normal marrow signal intensity. When asked he currently denies any bothersome urinary issues or concerns. He reports be happy with current voiding parameters. He reports compliance with doxazosin as prescribed. He discusses his longstanding history of renal cyst and had underwent right partial nephrectomy many years ago ( 20 years ago) for renal cyst. He reports it was noncancerous. When asked he denies urinary urgency, urinary frequency, incontinence, nocturia, hematuria, dysuria, foul smelling urine, changes to urinary stream, flank pain, fever, and or chills. We discussed surveillance monitoring. PSAs are as follows: 01/07 0.8, 08/10 0.5 PVR 0 mL PFSH Medical History Ex-smoker for less than 1 year Pulmonary nodule Kidney cyst, acquired COPD (chronic obstructive pulmonary disease) Smoker Surgical History History of lumbar fusion History of appendectomy (~10/1998) History of partial nephrectomy (~09/1998) Social History Patient Tobacco Use Status: Former Tobacco user Tobacco use type: Cigarette Cigarette Packs Per Day: 0.5 Cigarettes Per Day: 7 Years Smoked: 36 (onset 14, 1ppd x 36yr 35+PYH) Review of Systems Const Reports as per HPI Eyes Reports no additional complaints ENT Reports no additional complaints Card Reports no additional complaints Resp Reports no additional complaints GI Reports no additional complaints Reports as per HPI Musc Reports no additional complaints Neuro Reports no additional complaints Psych Reports no additional complaints Endo Reports no additional complaints Kristian/Lymph Reports no additional complaints Aller/Immun Reports no additional complaints Physical Exam Const General: cooperative, healthy appearing, comfortable, no acute distress, well developed, alert and awake Orientation/consciousness: patient oriented x3 Limitations: no limitations HEENT Head: Yes normal to inspection, Yes normocephalic and Yes atraumatic Ears: hearing grossly normal bilaterally Eyes General: appearance normal, both eyes and all related structures Neck Neck: Yes normal visual inspection and Yes trachea midline Chest Chest palpation & inspection: normal inspection of the chest Resp Effort & Inspection: normal respiratory effort and able to speak in complete sentences Cardio Rate: regular rate GI Inspection: Yes normal to inspection General: Yes no CVA tenderness Back/Spine/Pelvis Back: no CVA tenderness Skin General skin exam: no rashes or lesions noted Neuro General: patient oriented x3 Extrem General: Yes normal to inspection Psych Appearance: grossly normal and well kempt Mental Status: mental status grossly normal Speech and movement: Normal speech and movement present and Clear speech present Affect: normal affect Attitude: cooperative Thought process: Normal thought process present Thought content: Normal thought content present Insight: Fair insight present (Psych) Judgement: Fair judgement present (Psych) Results Reviewed Results Reviewed: Date of Service: 02/19/25 Procedure(s): MR abdomen wo/w con FINDINGS: There is no significant loss of signal intensity within the liver on opposed phase imaging to suggest steatosis. There is a 6 mm cyst in segment VIII. There is no enhancing liver mass. The hepatic and portal veins are patent. There is no intra or extrahepatic biliary ductal dilatation. The gallbladder is unremarkable. The spleen, pancreas, and adrenals are unremarkable. There are postsurgical changes involving the lower pole of the right kidney. There is mild dilatation of the right renal collecting system without change. There is a 1.4 cm cyst at the lower pole. There are tiny left renal cysts measuring up to 9 mm. There is no left hydronephrosis. No retroperitoneal lymphadenopathy or ascites is identified in the upper abdomen. The visualized bones demonstrate normal marrow signal intensity. IMPRESSION: 1. Postsurgical changes involving the right kidney. 2. Hepatic and bilateral renal cysts as described. Assessment & Plan Assessment & Plan (1) Complex renal cyst: Code(s): N28.1 - Cyst of kidney, acquired Category: Medical (2) Renal cyst: Code(s): N28.1 - Cyst of kidney, acquired Category: Medical (3) BPH (benign prostatic hyperplasia): Code(s): N40.0 - Benign prostatic hyperplasia without lower urinary tract symptoms Category: Medical (4) History of partial nephrectomy: Code(s): Z90.5 - Acquired absence of kidney Category: Surgical (5) Nephrolithiasis: Code(s): N20.0 - Calculus of kidney Category: Medical Plan In office urinalysis results reviewed with the patient today; as noted above. PVR 0 mL. Patient currently denies any bothersome urinary issues or concerns. Reports be happy with current voiding parameters. Continue doxazosin 2 mg at bedtime. Recent renal imaging results reviewed with the patient today; as noted above. Will continue with surveillance monitoring at this time of renal cysts. Will obtain renal ultrasound in 6 months. Will obtain PSA in 6 months Follow-up in 6 months with imaging and labs to be completed prior and PVR at next office visit; or sooner with any issues, concerns, and or questions. Orders: Orders US retroperitoneal comp 6 Months N40.0 - Benign prostatic hyperplasia without lower urinary tract symptoms Prostate Specific Antigen 6 Months N28.1 - Cyst of kidney, acquired, Z90.5 - Acquired absence of kidney Patient Instructions: The patient had an opportunity to ask questions regarding the treatment plan. All questions were answered. Physical exam, labs, and imaging were discussed and reviewed in detail. As well as risks, benefits, and discussion of treatment choices. No major barriers to understanding were identified. The patient expressed understanding and agreement with the above treatment plan. The patient was made aware they should contact our office by phone for worsening of their current condition, the appearance of new symptoms, or with any questions or concerns. Compliance is encouraged with any medications and follow up testing that is ordered. It is a privilege to be allowed the opportunity to participate in? your urological care.? Again, if you have any questions or concerns If you have any questions or concerns please do not hesitate to contact me. The office is [phone]. This note is constructed using voice recognition software. While every effort has been made to ensure accuracy ad operations intern errors may have been included. Yours sincerely, CHER Street Coding Level of Care Code Est Pt Level 3 (53082) Complex EM visit Add On G2211 Diagnoses Complex renal cyst N28.1 Renal cyst N28.1 BPH (benign prostatic hyperplasia) N40.0 History of partial nephrectomy Z90.5 Nephrolithiasis N20.0
--- OUTSIDE RECORDS SUMMARY | 2025-03-05 14:49 | XMS_ITS | Encounter Summary ---
Demographics Address [address] [place] [address] Mobile Phone Home Phone Email Address Preferred Language es Marital Status Catholic Affiliation Unknown Race Other Race Ethnic Group Unknown Author Organization [employer] Address [address] [place] [address] [address] [place] [address] Care Team Providers Care Didactic Program In Dietetics Director Name Role Phone Ondina Hylton MD Primary Care Provider [phone] Dejuan Franco PharmD Unavailable [phone] Reason for Referral * Imaging (Routine) - Closed Specialty Diagnoses / Procedures Referred By Justyn napier Referred To Contact Cardiology Diagnoses Chronic pain of right knee Right leg pain Claudication (CMS/HCC) Atherosclerosis of swinom[place] artery of left leg with rest pain (CMS/HCC) Atherosclerosis of right leg (CMS/HCC) Procedures Vascular US lower extremity arterial duplex bilateral with complete Doppler Ondina Hylton MD [address] [place] [address] Phone: tel: fax: [address] Phone: tel: fax: Referral ID Status Reason Start Date Expiration Date V isits Requested Visits Authorized [id number] Closed Perform Procedure 05/22/2024 05/22/2025 1 1 Encounter Details Date Type Department Care Team (Late st Contact Info) Description 05/22/2024 Orders Only [facility] [address] [place], [place] [phone] Ondina Hylton MD [address] [place], [place] [phone] Claudication (CMS/HCC) (Primary Dx); Chronic pain of right knee; Right leg pain; Atherosclerosis of swinomish artery of left leg with rest pain [...] Description 06/19/2025 9:00 AM EDT Clinical Support [address] [address] Phyllis Jimenez RN [address] [place] [address] documented as of this encounter Goals Goal Patient Goal Type Associated Problems Recent Progress Patient-Stated? Author Blood Pressure < 140/90 Blood Pressure 130/78( 025 1:39 PM EDT) No Dejuan Franco, Gia Quit using tobacco (cigarettes, smokeless, etc) Tobacco Use No Dejuan Franco, Gia documented as of this encounter Procedures Procedure Name Priority Date/Time Associated Diagnosis Comments [facility] US LOWER EXTREMITY ARTERIAL DUPLEX BILATERAL Routine 06/17/2024 1:56 PM EDT documented in this encounter Results * [facility] US Lower Extremity Arterial Duplex Bilateral (06/17/2024 1:56 PM EDT) 06/17/2024 1:56 PM EDT Narrative [facility] - 06/19/2024 9:07 AM EDT [address] [address] Ultrasound Report Signed Patient: Gino Jang MR#: [id number] : 1970 Acct:[id number] Age/Sex: 53 / M ADM Date: 06/17/24 Loc: . Attending Dr: Ondina Hylton MD Ordering Physician: Ondina Hylton MD Date of Service: 06/17/24 Procedure(s): US arterial duplex LE Accession Number(s): [id number] cc: Ondina Hylton MD EXAMINATION: Noninvasive assessment [...] Christoph Mckeon MD 06/19/2024 09:04 AM EDT Dictated By: Christoph Mckeon MD Signed By: <Electronically signed by Christoph Mckeon MD in OV> 06/19/24 0904 DD/ 1356 TD/TT: 06/17/24 1421 Area Loss Prevention Manager: Procedure Note Donotuseinterpreter, Image - 06/19/[address] [address] Ultrasound Report Signed Patient: Gino Jang#: [id number] : 1970Acct:[id number] Age/Sex: 53 / MADM Date: 06/17/24 Loc: [facility] Attending Dr: Ondina Hylton MD Ordering Physician: Ondina Hylton MD Date of Service: 06/17/24 Procedure(s): US arterial duplex LE BI Accession Number(s): [id number] cc: Ondina Hylton MD EXAMINATION: Noninvasive assessment [...] Mckeon MD 06/19/2024 09:04 AM EDT RP Workstation: [email or web address] Dictated By: Christoph Mckeon MD Signed By: <Electronically signed by Christoph Mckeon MD in OV> 06/19/24 0904 DD/ 1356 TD/TT: 06/17/24 1421 Area Loss Prevention Manager: us Ondina Hylton MD CV VASCULAR PROCEDURES Edited Re sult - Final [facility] [address] [place] [address] documented in this encounter Visit Diagnoses Diagnosis Claudication (CMS/HCC)- Primary Unspecified peripheral vascular disease Chronic pain of right knee Right leg pain Pain in soft tissues of limb Atherosclerosis of swinomish artery of left leg with rest pain (CMS/HCC) Atherosclerosis of right leg (CMS/HCC) documented in this encounter Additional Health Concerns Assessment Noted Time PHQ-9 Depression Total Score: 0 04/17/20 23 11:07 AM EDT documented as of this encounter Care Teams Didactic Program In Dietetics Director Relationship Specialty Start Date End Date Ondina Hylton MD [address] [place] [address] PCP - General Family Medicine 06/11/19 Dejuan Franco, ShantanuD [address] [place] [address] Pharmacist Internal Medicine 03/30/23 12/29/24 documented as of this encounter
== END 2025-03-05 14:11 | disposition home or self-care (01) ==
PROVIDERS: PCP Family Medicine; Visit Provider Nurse Practitioner Family
DX: N28.1 Cyst of kidney, acquired (principal); N40.0 Benign prostatic hyperplasia without lower urinary tract symptoms; Z90.5 Acquired absence of kidney; N20.0 Calculus of kidney; Z13.9 Encounter for screening, unspecified
CPT/HCPCS: 99213; G2211

== ENCOUNTER → 2025-03-05 13:39 | Outpatient (BNVA) | payer MEDICARE, MEDICAID, SELFPAY | PROVIDERS: PCP Family Medicine; Visit Provider Nurse Practitioner Family | DX: N28.1 Cyst of kidney, acquired (principal); N40.0 Benign prostatic hyperplasia without lower urinary tract symptoms; N20.0 Calculus of kidney; Z90.5 Acquired absence of kidney | CPT/HCPCS: 51798; 81003; 99212 ==

== ENCOUNTER 2025-03-26 09:13 | Outpatient (AMB) | payer MEDICARE, MEDICAID, SELFPAY ==
--- NOTE | 2025-03-26 09:16 | A.OFFVIS_ITS ---
Vital Signs 03/26/25 09:25 Height 5 ft 10 in Weight 187 lb BMI 26.8 BP 114/76 Blood Pressure Location Lt brachial Position Sitting Pulse 66 Pulse Source Pulse Oximeter Pulse Oximetry (%) 96 Oxygen Delivery Method Room Air Intake Visit Reasons: colo screening Intake Note: Patient new consult for pre Colonoscopy screening/Nohemy medina was 05/04/2021. Patient cc: Pt denies any GI sx or concerns at this time. Agricultural Education Professor Required: Yes Agricultural Education Professor Services: Agricultural Education Professor Present Agricultural Education Professor Name: [id number] + [facility] Information Interpreted: clinical only Accompanied by: Self / Same As Patient Allergies pravastatin Allergy (Verified 03/26/25 09:30) myalgias Medication List - Last Reconciled 03/26/25 by Floresita Galeano CNP albuterol sulfate 90 mcg/actuation 2 puffs inhalation Q6H PRN bisacodyl 5 mg PO ONCE 1 day doxazosin 4 mg PO BEDTIME fluticasone furoate-vilanterol 100-25 mcg/dose (Breo Ellipta) 1 inh inhalation DAILY gabapentin 600 mg PO TID lisinopril 40 mg PO DAILY naloxone 4 mg/actuation intranasal oxycodone mg PO polyethylene glycol 3350 (Miralax) 238 grams PO ONCE rosuvastatin 5 mg PO DAILY tiotropium bromide (Spiriva with HandiHaler) 1 cap inhalation DAILY 30 days HPI HPI colo screening: Details: Patient is a 54-year-old male with PMH of former smoker, COPD and BPH. Last visit with RAYNA Clark 05/04/2021 for follow up abdominal pain. He reports ongoing abdominal pain since April 2021, which has been intermittent but very painful when it occurs. The patient describes the pain as feeling like a ball located under the pelvic bone. It is rare in frequency but severe in intensity. The pain is not associated with bowel movements and is not accompanied by nausea, vomiting, or recent fever. Lying down provides some relief, and the pain typically resolves on its own. Gino has not identified any specific dietary triggers for the pain. The abdominal pain has impacted Gino's appetite, leading to decreased desire to eat for about a year. Despite this, his weight has remained stable. His bowel movements are reported as normal, occurring every morning without blood. He denies heartburn, trouble swallowing, or changes in urine output associated with the abdominal pain. Patient denies: pyrosis, regurgitation, unintentional wt loss or melena/hematochezia. Social hx: -denies ETOH use -Daily marijuana use (smoking), denies other recreational drug use -former smoker, cessation one year ago (2023) - family hx as below -denies personal hx of CA -tolerated anesthesia in the past without difficulty. PFSH Medical History Colon cancer screening Ex-smoker for less than 1 year Pulmonary nodule Kidney cyst, acquired COPD (chronic obstructive pulmonary disease) Smoker Surgical History History of lumbar fusion History of appendectomy (~10/1998) History of partial nephrectomy (~09/1998) Social History Patient Tobacco Use Status: Former Tobacco user Tobacco use type: Cigarette Cigarette Packs Per Day: 0.5 Cigarettes Per Day: 7 Years Smoked: 36 (onset 14, 1ppd x 36yr 35+PYH) Review of Systems Const Reports as per HPI ENT Reports as per HPI Card Reports as per HPI Resp Reports as per HPI GI Reports as per HPI Reports as per HPI Physical Exam Vital Signs: Last Vital Signs Pulse 66 03/26/25 09:25 BP 114/76 03/26/25 09:25 Pulse Ox 96 03/26/25 09:25 Oxygen Delivery Method Room Air 03/26/25 09:25 BMI result Body Mass Index 26.8 Const General: healthy appearing, no acute distress and well developed Nutritional Appearance: well nourished Orientation/consciousness: patient oriented x3 HEENT Head: Yes normal to inspection, Yes normocephalic and Yes atraumatic Face and sinus: Yes normal facial exam Eyes General: appearance normal, both eyes and all related structures Neck Neck: Yes normal visual inspection Resp Effort & Inspection: normal respiratory effort, able to speak in complete sentences, no tracheal deviation and symmetric chest movement Cardio Jugular venous distension: no JVD Rate: regular rate Rhythm: regular rhythm Heart sounds: S1 normal heart sound present, S2 normal heart sound present, no gallops and no murmurs GI Inspection: Yes normal to inspection and No distended Palpation (GI): Soft to palpation, not firm, nontender, No hepatosplenomegaly present, no hernias and no masses Auscultation: normal bowel sounds Neuro General: patient oriented x3 Gait exam (Neuro): Normal gait present Psych Appearance: grossly normal Mental Status: mental status grossly normal Speech and movement: Normal speech and movement present Affect: normal affect Attitude: cooperative Thought process: Normal thought process present Thought content: Normal thought content present Insight: Good insight present (Psych) Judgement: Good judgement present (Psych) Assessment & Plan Assessment & Plan (1) Colon cancer screening: Code(s): Z12.11 - Encounter for screening for malignant neoplasm of colon Category: Medical Plan: First screening colonoscopy, no family history of colon cancer. - Obtain clearance from Pulmonary before procedure. Medications: -prescriptions for laxative tablets MiraLax sent to pharmacy; instructions for Gatorade purchase and clear liquid diet given. Patient educated on scheduling process, procedure preparation, including avoiding certain foods and ensuring clear liquid intake Advised on necessity for ride post-procedure due to sedation. (2) Abdominal pain: Code(s): R10.9 - Unspecified abdominal pain Category: Medical Qualifiers: Abdominal location: lower abdomen, unspecified Qualified Code(s): R10.30 - Lower abdominal pain, unspecified Plan: Intermittent pelvic pain - Rare but severe episodes described as ball under pelvic bone since 2020. Abundant stool noted on 07/23/2024 CT ab/pelvis without evidence of obstruction. - physical examination unyielding - Normal chemistry and lipids collected 01/15/2025. Ordered basic laboratory tests to check for anemia and elevated white blood cell count. - Instruct patient to monitor symptoms and dietary intake to help identify triggers, as well as any changes in urinary habits. - Advise patient to report any changes in pain or new symptoms. Plan Follow-up after colonoscopy or sooner as needed Time: I spent a total of 35 minutes on the date of encounter which includes: Preparing to see the patient (reviewed previous documentation, test results and medical history) Performing a medically appropriate exam and/or evaluation Ordering medications, tests, and procedures Documenting clinical information in the health record Orders: Orders Complete Blood Count Auto Diff 03/26/25 Z12.11 - Encounter for screening for malignant neoplasm of colon Medications: New bisacodyl Take four tablets once for 1 day per colonoscopy instructions 5 mg PO ONCE 4 tabs 0RF 1 day polyethylene glycol 3350 (Miralax) per colonoscopy prep instructions 238 grams PO ONCE 238 grams 0RF Coding Level of Care Code New Pt New Pt Level 3 (18941) Patient Type New Diagnoses Colon cancer screening Z12.11 Lower abdominal pain R10.30 Abdominal location: lower abdomen, unspecified
[2025-03-26 09:25] VITALS: BP 114/76; PULSE 66; O2SAT 96; BMI 26.8
--- OUTSIDE RECORDS SUMMARY | 2025-03-26 09:38 | XMS_ITS | Clinical Summary ---
Author Organization [facility] Address [address] [place] [phone] Phone Care Team Providers Care Automatic Print Developer Name Role Phone Pranay Meadows MD Primary Care Provider [phone] Social History Tobacco Use Types Packs/Day Years [...] 08/15/2022 Depression Screening 04/17/2024 04/17/2023 COVID-19 Vaccine (1 - 2023-2 5 season) 2024 Influenza Vaccine (#1) 2025 HIB Vaccines Aged Out No longer [...] Insurance MEDICAID - [place] MEDICARE Care Teams Automatic Print Developer Relationship Specialty Start Date End Date Pranay Meadows MD [address] [place] [address] PCP - General 07/17/1999
--- OUTSIDE RECORDS SUMMARY | 2025-03-26 09:38 | XMS_ITS | Encounter Summary ---
Demographics Address [address] [facility] [address] [place] [address] Mobile Phone Home Phone Email Address Preferred Language es Marital Status Adventist Affiliation Unknown Race Other Race Ethnic Group Unknown Author Organization [employer] Address [address] [place] [address] [address] [place] [address] Care Team Providers Care Assistant Dean Name Role Phone Ondina Hylton MD Primary Care Provider [phone] Dejuan Franco PharmD Unavailable [phone] Reason for Referral * Imaging (Routine) - Closed Specialty Diagnoses / Procedures Referred By Justyn napier Referred To Contact Cardiology Diagnoses Chronic pain of right knee Right leg pain Claudication (CMS/HCC) 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) Atherosclerosis of right leg (CMS/HCC) Procedures Vascular US lower extremity arterial duplex bilateral with complete Doppler Ondina Hylton MD [address] [place] [address] Phone: tel: fax: [address] Phone: tel: fax: Referral ID Status Reason Start Date Expiration Date V isits Requested Visits Authorized [id number] Closed Perform Procedure 05/22/2024 05/22/2025 1 1 Encounter Details Date Type Department Care Team (Late st Contact Info) Description 05/22/2024 Orders Only [facility] [address] [place], [place] [phone] Ondina Hylton MD [address] [place], [place] [phone] Claudication (CMS/HCC) (Primary Dx); Chronic pain of right knee; Right leg pain; Atherosclerosis of crow artery of left leg with rest pain [...] Description 06/19/2025 9:00 AM EDT Clinical Support [address] [address] Phyllis Jimenez RN [address] [place] [address] documented as of this encounter Goals Goal Patient Goal Type Associated Problems Recent Progress Patient-Stated? Author Blood Pressure < 140/90 Blood Pressure 130/78( 025 1:39 PM EDT) No Dejuan Franco, Gia Quit using tobacco (cigarettes, smokeless, etc) Tobacco Use No Dejuan Franco, Gia documented as of this encounter Procedures Procedure Name Priority Date/Time Associated Diagnosis Comments [facility] US LOWER EXTREMITY ARTERIAL DUPLEX BILATERAL Routine 06/17/2024 1:56 PM EDT documented in this encounter Results * [facility] US Lower Extremity Arterial Duplex Bilateral (06/17/2024 1:56 PM EDT) 06/17/2024 1:56 PM EDT Narrative [facility] - 06/19/2024 9:07 AM EDT [address] [address] Ultrasound Report Signed Patient: Gino Jang MR#: [id number] : 1970 Acct:[id number] Age/Sex: 53 / M ADM Date: 06/17/24 Loc: . Attending Dr: Ondina Hylton MD Ordering Physician: Ondina Hylton MD Date of Service: 06/17/24 Procedure(s): US arterial duplex LE Accession Number(s): [id number] cc: Ondina Hylton MD EXAMINATION: Noninvasive assessment [...] 06/19/24 0904 DD/ 1356 TD/TT: 06/17/24 1421 [facility] [employer]: Procedure Note Donotuseinterpreter, Image - 06/19/[address] [address] Ultrasound Report Signed Patient: Gino Jang#: [id number] : 1970Acct:[id number] Age/Sex: 53 / MADM Date: 06/17/24 Loc: [facility] Attending Dr: Ondina Hylton MD Ordering Physician: Ondina Hylton MD Date of Service: 06/17/24 Procedure(s): US arterial duplex LE BI Accession Number(s): [id number] cc: Ondina Hylton MD EXAMINATION: Noninvasive assessment [...] MD 06/19/2024 09:04 AM EDT RP Workstation: [email or web address] Dictated By: Christoph Mckeon MD Signed By: <Electronically signed by Christoph Mckeon MD in OV> 06/19/24 0904 DD/ 1356 TD/TT: 06/17/24 1421 [facility] [employer]: us Ondina Hylton MD CV VASCULAR PROCEDURES Edited Re sult - Final [facility] [address] [place] [address] documented in this encounter Visit Diagnoses Diagnosis Claudication (CMS/HCC)- Primary Unspecified peripheral vascular disease Chronic pain of right knee Right leg pain Pain in soft tissues of limb 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
== END 2025-03-26 10:01 | disposition home or self-care (01) ==
LOC: HO.HGI 09:14
PROVIDERS: PCP Family Medicine; Visit Provider Nurse Practitioner Family
DX: Z12.11 Encounter for screening for malignant neoplasm of colon (principal); R10.30 Lower abdominal pain, unspecified
CPT/HCPCS: 99024

== ENCOUNTER → 2025-03-26 09:13 | Outpatient (BNVA) | payer MEDICARE, MEDICAID, SELFPAY | PROVIDERS: PCP Family Medicine; Visit Provider Nurse Practitioner Family | DX: Z12.11 Encounter for screening for malignant neoplasm of colon (principal); R10.30 Lower abdominal pain, unspecified; Z79.899 Other long term (current) drug therapy | CPT/HCPCS: 99212 ==

== ENCOUNTER 2025-03-31 09:22 | Outpatient (REF) | payer MEDICARE, MEDICAID, SELFPAY ==
[2025-03-31 09:31] LABS: MANUAL DIFF FLAG NO
[2025-03-31 09:44] LABS: Hematocrit 38.1 % (42.0-52.0); Hemoglobin 12.6 g/dl (14.0-18.0); Imm Gran Abs Auto 0.02 X10*3/uL (0.00-0.03); Imm Gran Pct Auto 0.2 % (0.0-0.4); Lymphocytes Absolute Auto 2.4 X10*3/uL (1.2-4.9); Mean Corpuscular HGB Conc 33.1 g/dl (31.0-36.0); Mean Corpuscular Hemoglobin 29.9 pg (27.0-33.0); Mean Corpuscular Volume 90.5 fL (80.0-98.0); NRBC Abs Auto 0.000 X10*3/uL (0.0-0.012); NRBC Pct Auto 0.0 /100WBC (0.0-0.2); Platelet Count 217 X10*3/uL (160-400); Red Blood Count 4.21 X10*6/uL (4.60-5.80); White Blood Count 8.2 X10*3/uL (4.8-10.8)
--- OUTSIDE RECORDS SUMMARY | 2025-03-31 09:53 | XMS_ITS | Clinical Summary ---
Author Organization [facility] Address [address] [place] [phone] Phone Care Team Providers Care Kiln Firer Name Role Phone Pranay Meadows MD Primary Care Provider [phone] Social History Tobacco Use Types Packs/Day Years [...] Insurance MEDICAID - [place] MEDICARE Care Teams Kiln Firer Relationship Specialty Start Date End Date Pranay Meadows MD [address] [place] [address] PCP - General 07/17/1999
--- OUTSIDE RECORDS SUMMARY | 2025-03-31 09:53 | XMS_ITS | Encounter Summary ---
Demographics Address [address] [place] [address] Mobile Phone Home Phone Email Address Preferred Language es Marital Status Hoahaoism Affiliation Unknown Race Other Race Ethnic Group Unknown Author Organization [facility] Address [address] [place] [address] [address] [place] [address] Care Team Providers Care Terminal Makeup Operator Name Role Phone Ondina Hylton MD Primary Care Provider [phone] Dejuan Franco PharmD Unavailable [phone] Reason for Referral * Imaging (Routine) - Closed Specialty Diagnoses / Procedures Referred By Justyn napier Referred To Contact Cardiology Diagnoses Chronic pain of right knee Right leg pain Claudication (CMS/HCC) Atherosclerosis of omaha artery of left leg with rest pain (CMS/HCC) Atherosclerosis of right leg (CMS/HCC) Procedures Vascular US lower extremity arterial duplex bilateral with complete Doppler Ondina Hylton MD [address] [place] [address] Phone: tel: fax: [address] Phone: tel: fax: Referral ID Status Reason Start Date Expiration Date V isits Requested Visits Authorized [id number] Closed Perform Procedure 05/22/2024 05/22/2025 1 1 Encounter Details Date Type Department Care Team (Late st Contact Info) Description 05/22/2024 Orders Only [facility] [address] [place], [place] [phone] Ondina Hylton MD [address] [place], [place] [phone] Claudication (CMS/HCC) (Primary Dx); Chronic pain of right knee; Right leg pain; Atherosclerosis of omaha artery of left leg with rest pain [...] Description 06/19/2025 9:00 AM EDT Clinical Support [address] [address] Phyllis Jimenez RN [address] [place] [address] documented as of this encounter Goals Goal Patient Goal Type Associated Problems Recent Progress Patient-Stated? Author Blood Pressure < 140/90 Blood Pressure 130/78( 025 1:39 PM EDT) No Dejuan Franco, Gia Quit using tobacco (cigarettes, smokeless, etc) Tobacco Use No Dejuan Franco, Gia documented as of this encounter Procedures Procedure Name Priority Date/Time Associated Diagnosis Comments [facility] US LOWER EXTREMITY ARTERIAL DUPLEX BILATERAL Routine 06/17/2024 1:56 PM EDT documented in this encounter Results * [facility] US Lower Extremity Arterial Duplex Bilateral (06/17/2024 1:56 PM EDT) 06/17/2024 1:56 PM EDT Narrative [facility] - 06/19/2024 9:07 AM EDT [address] [address] Ultrasound Report Signed Patient: Gino Jang MR#: [id number] : 1970 Acct:[id number] Age/Sex: 53 / M ADM Date: 06/17/24 Loc: . Attending Dr: Ondina Hylton MD Ordering Physician: Ondina Hylton MD Date of Service: 06/17/24 Procedure(s): US arterial duplex LE Accession Number(s): [id number] cc: Ondina Hylton MD EXAMINATION: Noninvasive assessment [...] 06/19/24 0904 DD/ 1356 TD/TT: 06/17/24 1421 Interior Design Teacher: Procedure Note Donotuseinterpreter, Image - 06/19/[address] [address] Ultrasound Report Signed Patient: Gino Jang#: [id number] : 1970Acct:[id number] Age/Sex: 53 / MADM Date: 06/17/24 Loc: [facility] Attending Dr: Ondina Hylton MD Ordering Physician: Ondina Hylton MD Date of Service: 06/17/24 Procedure(s): US arterial duplex LE BI Accession Number(s): [id number] cc: Ondina Hylton MD EXAMINATION: Noninvasive assessment [...] MD 06/19/2024 09:04 AM EDT RP Workstation: MyLife Dictated By: Christoph Mckeon MD Signed By: <Electronically signed by Christoph Mckeon MD in OV> 06/19/24 0904 DD/ 1356 TD/TT: 06/17/24 1421 Interior Design Teacher: us Ondina Hylton MD CV VASCULAR PROCEDURES Edited Re sult - Final [facility] [address] [place] [address] documented in this encounter Visit Diagnoses Diagnosis Claudication (CMS/HCC)- Primary Unspecified peripheral vascular disease Chronic pain of right knee Right leg pain Pain in soft tissues of limb Atherosclerosis of omaha artery of left leg with rest pain (CMS/HCC) Atherosclerosis of right leg (CMS/HCC) documented in this encounter Additional Health Concerns Assessment Noted Time PHQ-9 Depression Total Score: 0 04/17/20 23 11:07 AM EDT documented as of this encounter Care Teams Terminal Makeup Operator Relationship Specialty Start Date End Date Ondina Hylton MD [address] [place] [address] PCP - General Family Medicine 06/11/19 Dejuan Franco, ShantanuD [address] [place] [address] Pharmacist Internal Medicine 03/30/23 12/29/24 documented as of this encounter
== END 2025-03-31 09:23 | disposition home or self-care (01) ==
LOC: HO.LAB 09:22
PROVIDERS: PCP Family Medicine; Visit Provider Nurse Practitioner Family
DX: Z12.11 Encounter for screening for malignant neoplasm of colon (principal)
CPT/HCPCS: 36415; 85025

== ENCOUNTER 2025-08-24 08:58 | Outpatient (REF) | payer MEDICARE, MEDICAID, SELFPAY ==
--- NOTE | ~2025-08-24 | US_ITS ---
CLINICAL HISTORY: N40.0 - Benign prostatic hyperplasia without lower urinary tract symptoms US Renal Comparison: CT/NJ/SR - CT ABDOMEN PELVIS WITHOUT THEN WITH IV CONTRAST - 07/23/24 15:12 EST US/[place]/SR - US KIDNEY BILATERAL - 01/25/2024 09:42 AM EDT Findings: Right kidney normal size measuring 8 x 5 x 5 cm length Left kidney normal size measuring 12.8 x 6 x 6.3 cm length. Mild right-sided caliectasis are noted. Bilateral kidneys slightly echogenic. Several subcentimeter bilateral cortical renal cysts are noted Normal color Doppler. Urinary bladder is unremarkable. Prevoid volume 190 mL. Postvoid volume 5 mL. Bilateral ureteral jets are visualized. IMPRESSION: Slightly echogenic kidneys, concerning for medical renal disease. Recommend clinical and laboratory correlation. Several small bilateral cortical renal cysts are noted. There are no signs of obstructive uropathy. Bladder unremarkable without significant postvoid residual This document has been electronically signed by: Marcell Hogue MD on 08/25/2025 10:24:09
[2025-08-24 10:17] LABS: Prostate Specific Antigen 1.57 ng/mL (<0.05-4.0)
== END 2025-08-24 08:59 | disposition home or self-care (01) ==
LOC: HO.US 08:58
PROVIDERS: PCP Family Medicine; Visit Provider Nurse Practitioner Family
DX: Z12.5 Encounter for screening for malignant neoplasm of prostate (principal); N40.0 Benign prostatic hyperplasia without lower urinary tract symptoms; Z90.5 Acquired absence of kidney; N28.1 Cyst of kidney, acquired
CPT/HCPCS: 36415; 76770; 84153

== ENCOUNTER → 2025-08-24 09:21 | Outpatient (BNV) | payer MEDICARE, MEDICAID, SELFPAY | PROVIDERS: PCP Family Medicine; Visit Provider Radiology Diagnostic Radiology | DX: N40.0 Benign prostatic hyperplasia without lower urinary tract symptoms (principal); N28.1 Cyst of kidney, acquired | CPT/HCPCS: 76770 ==

== ENCOUNTER 2025-08-31 08:40 | Outpatient (AMB) | payer MEDICARE, MEDICAID, SELFPAY ==
--- NOTE | 2025-08-31 08:49 | A.OFFVIS_ITS ---
Intake Visit Reasons: 6m/US/UA Intake Note: Reason for Visit: UA/PVR/PSA/UA Follow Up Urology Medication: Doxazosin Blood Thinners: None Imaging: Ultrasound- 08/25/2025 Labs: PSA- 1.57 08/24/2025 Last PVR: 0ML PVR: 19ML Fnp Required: No Auxiliary Plant Operator: Auxiliary Plant Operator Present Accompanied by: Family/Other Allergies pravastatin Allergy (Verified 08/31/25 09:10) myalgias Medication List - Last Reconciled 08/31/[address]- albuterol sulfate 90 mcg/actuation 2 puffs inhalation Q6H PRN bisacodyl 5 mg PO ONCE 1 day doxazosin 4 mg PO BEDTIME fluticasone furoate-vilanterol 100-25 mcg/dose (Breo Ellipta) 1 inh inhalation DAILY gabapentin 600 mg PO TID lisinopril 40 mg PO DAILY naloxone 4 mg/actuation intranasal oxycodone mg PO polyethylene glycol 3350 (Miralax) 238 grams PO ONCE rosuvastatin 5 mg PO DAILY tiotropium bromide (Spiriva with HandiHaler) 1 cap inhalation DAILY 30 days HPI Comments Details: Gino is a pleasant 54-year-old Honduran-speaking male patient of Dr. Hylton was accompanied by his significant other at today's office visit. He has a past medical history of suspicious pulmonary nodule negative for malignancy, COPD, and nephrolithiasis. He presents to the office today for follow-up of his history of nephrolithiasis and renal cysts status post right-sided partial nephrectomy. In discussion with the patient and his today he continues to experience ongoing episodes of right-sided back pain. He is unsure if this is his kidney and or lumbar discomfort. In assessment of the patient today in the area of pain it does appear in his in the lumbar area. No CVA tenderness noted bilaterally. In office urinalysis results reviewed with the patient today. Most recent retroperitoneal ultrasound results reviewed with the patient today. 09/10 bilateral kidneys are normal in size. Mild right caliectasis is noted. Bilateral kidneys slightly echogenic. Several subcentimeter bilateral cortical renal cysts are noted. The urinary bladder is unremarkable. No significant postvoid residual. Previous imaging MRI: 03/11 there is a 6 mm cyst, there are postsurgical changes involving the lower pole of the right kidney. There is mild dilatation of the right renal collecting system without change. There is a 1.4 cm cyst at the lower pole. There are tiny left renal cysts measuring up to 9 mm. There is no left hydronephrosis. No retroperitoneal lymphadenopathy or ascites is identified in the upper abdomen. The visualized bones demonstrate normal marrow signal intensity. When asked he currently denies any bothersome urinary issues or concerns. He reports be happy with current voiding parameters. He reports compliance with doxazosin as prescribed. He discusses his longstanding history of renal cyst and had underwent right partial nephrectomy many years ago (20 years ago) for renal cyst. He reports it was noncancerous. When asked he denies urinary urgency, urinary frequency, incontinence, nocturia, hematuria, dysuria, foul smelling urine, changes to urinary stream, flank pain, fever, and or chills. We discussed surveillance monitoring. PSAs are as follows: 01/07 0.8, 08/10 0.5, 09/10 1.6 PVR today 19ml's. We did discussed potential causes of back pain patient is experiencing as well as further treatment options and risks and benefits of these treatment options. All questions were answered. He otherwise offers no other issues or concerns at this time. BUN: 08/04 18, 05/07 16, 02/07 14, 08/10 14, 02/08 13 Creatinine: 08/04 0.79, 05/07 0.81, 02/07 0.78. 08/10 0.86, 02/08 0.78 PFSH Medical History Colon cancer screening Ex-smoker for less than 1 year Pulmonary nodule Kidney cyst, acquired COPD (chronic obstructive pulmonary disease) Smoker Surgical History History of lumbar fusion History of appendectomy (~10/1998) History of partial nephrectomy (~09/1998) Social History Patient Tobacco Use Status: Former Tobacco user Tobacco use type: Cigarette Cigarette Packs Per Day: 0.5 Cigarettes Per Day: 7 Years Smoked: 34 (onset 14, 1ppd x 36yr 35+PYH) Review of Systems Const Reports as per HPI Eyes Reports no additional complaints ENT Reports no additional complaints Card Reports no additional complaints Resp Reports no additional complaints GI Reports no additional complaints Reports as per HPI Musc Reports no additional complaints Neuro Reports no additional complaints Psych Reports no additional complaints Endo Reports no additional complaints Kristian/Lymph Reports no additional complaints Aller/Immun Reports no additional complaints Physical Exam Const General: cooperative, healthy appearing, comfortable, no acute distress, well developed, alert and awake Orientation/consciousness: patient oriented x3 Limitations: ambulation with cane HEENT Head: Yes normal to inspection, Yes normocephalic and Yes atraumatic Ears: hearing grossly normal bilaterally Eyes General: appearance normal, both eyes and all related structures Neck Neck: Yes normal visual inspection and Yes trachea midline Chest Chest palpation & inspection: normal inspection of the chest Resp Effort & Inspection: normal respiratory effort and able to speak in complete sentences Cardio Rate: regular rate GI Inspection: Yes normal to inspection General: Yes no CVA tenderness Back/Spine/Pelvis Back: no CVA tenderness Skin General skin exam: no rashes or lesions noted Neuro General: patient oriented x3 Extrem General: Yes normal to inspection Psych Appearance: grossly normal and well kempt Mental Status: mental status grossly normal Speech and movement: Normal speech and movement present and Clear speech present Affect: normal affect Attitude: cooperative Thought process: Normal thought process present Thought content: Normal thought content present Insight: Fair insight present (Psych) Judgement: Fair judgement present (Psych) Office Procedures Post Void Residual Post Residual Void Post Void Residual (PVR): 19 [id number]-[id number] Void Residual by ultrasound Results AMB Urinalysis, Automated UA Leukoctes 0 Antonia/uL Last Edit by AHSAN Mcgregor on 08/31/25 09:13 UA Nitrite Negative Last Edit by AHSAN Mcgregor on 08/31/25 09:13 UA Urobilinogen 0.2 mg/dL Last Edit by Arina Pineda [facility] on 08/31/25 09:1 3 UA Protein 0 mg/dL Last Edit by AHSAN Mcgregor on 08/31/25 09:13 UA pH 6.0 Last Edit by AHSAN Mcgregor on 08/31/25 09:13 UA Blood 0 Dimas/uL Last Edit by Arina Pineda [facility] on 08/31/25 09:13 UA Specific [place] 1.020 Last Edit by Arina Pineda [facility] on 08/31/25 09: 13 UA Ketone Negative Last Edit by AHSAN Mcgregor on 08/31/25 09:13 UA Bilirubin 0 mg/dL Last Edit by AHSAN Mcgregor on 08/31/25 09:13 UA Glucose 0 mg/dL Last Edit by AHSAN Mcgregor on 08/31/25 09:13 Results Reviewed Results Reviewed: Date of Service: 08/24/25 Procedure(s): US retroperitoneal comp Right kidney normal size measuring 8 x 5 x 5 cm length Left kidney normal size measuring 12.8 x 6 x 6.3 cm length. Mild right-sided caliectasis are noted. Bilateral kidneys slightly echogenic. Several subcentimeter bilateral cortical renal cysts are noted Normal color Doppler. Urinary bladder is unremarkable. Prevoid volume 190 mL. Postvoid volume 5 mL. Bilateral ureteral jets are visualized. IMPRESSION: Slightly echogenic kidneys, concerning for medical renal disease. Recommend clinical and laboratory correlation. Several small bilateral cortical renal cysts are noted. There are no signs of obstructive uropathy. Bladder unremarkable without significant postvoid residual Assessment & Plan Assessment & Plan (1) History of partial nephrectomy: Code(s): Z90.5 - Acquired absence of kidney Category: Surgical (2) Renal cyst: Code(s): N28.1 - Cyst of kidney, acquired Category: Medical (3) Nephrolithiasis: Code(s): N20.0 - Calculus of kidney Category: Medical (4) BPH (benign prostatic hyperplasia): Code(s): N40.0 - Benign prostatic hyperplasia without lower urinary tract symptoms Category: Medical (5) Back pain: Code(s): M54.9 - Dorsalgia, unspecified Category: Medical Plan Office urinalysis results reviewed with the patient today; as noted above. Most recent retroperitoneal ultrasound results reviewed with the patient today; as noted above. Most recent PSA results reviewed with the patient today; as noted above. We did discussed potential causes of back pain as well as further treatment options and risks and benefits of these treatment options. We discussed renal cysts Most recent BUN and creatinine results reviewed and trended with the patient today; as noted above. He currently denies any bothersome urinary issues. He reports be happy with current voiding parameters. Continue doxazosin as discussed and prescribed. Will obtain CT urogram for further assessment evaluation. We did discussed worsening symptoms. BUN and creatinine ordered for imaging. Follow-up in 1-3 months with imaging to be completed prior; or sooner with any issues, concerns, and or questions. Orders: Orders AMB Post Void Residual by ultrasound Today N40.0 - Benign prostatic hyperplasia without lower urinary tract symptoms Blood Urea Nitrogen Today R39.15 - Urgency of urination Creatinine Today R39.15 - Urgency of urination AMB Urinalysis Automated Today N40.0 - Benign prostatic hyperplasia without lower urinary tract symptoms, Z13.9 - Encounter for screening, unspecified CT abdomen pelvis wo/w IV con Today N20.0 - Calculus of kidney, N28.1 - Cyst of kidney, acquired, Z90.5 - Acquired absence of kidney Patient Instructions: The patient had an opportunity to ask questions regarding the treatment plan. All questions were answered. Physical exam, labs, and imaging were discussed and reviewed in detail. As well as risks, benefits, and discussion of treatment choices. No major barriers to understanding were identified. The patient expressed understanding and agreement with the above treatment plan. The patient was made aware they should contact our office by phone for worsening of their current condition, the appearance of new symptoms, or with any questions or concerns. Compliance is encouraged with any medications and follow up testing that is ordered. It is a privilege to be allowed the opportunity to participate in? your urological care.? Again, if you have any questions or concerns If you have any questions or concerns please do not hesitate to contact me. The office is [phone]. This note is constructed using voice recognition software. While every effort has been made to ensure accuracy filler and trimmer errors may have been included. Yours sincerely, CHER Street Coding Level of Care Code Est Pt Level 3 (19688) Add On Problem Visit Only Diagnoses History of partial nephrectomy Z90.5 Renal cyst N28.1 Nephrolithiasis N20.0 BPH (benign prostatic hyperplasia) N40.0 Back pain M54.9 CPT Codes Post Residual Void - PVR CPT Code: 97594-Hfwf Void Residual by ultrasound ([id number])
== END 2025-08-31 09:34 | disposition home or self-care (01) ==
LOC: HO.HUSH 08:41
PROVIDERS: PCP Family Medicine; Visit Provider Nurse Practitioner Family
DX: Z90.5 Acquired absence of kidney (principal); N28.1 Cyst of kidney, acquired; N20.0 Calculus of kidney; N40.0 Benign prostatic hyperplasia without lower urinary tract symptoms; M54.9 Dorsalgia, unspecified; Z13.9 Encounter for screening, unspecified
CPT/HCPCS: 99213; G2211

== ENCOUNTER → 2025-08-31 08:40 | Outpatient (BNVA) | payer MEDICARE, MEDICAID, SELFPAY | PROVIDERS: PCP Family Medicine; Visit Provider Nurse Practitioner Family | DX: Z71.2 Person consulting for explanation of examination or test findings (principal); N20.0 Calculus of kidney; N28.1 Cyst of kidney, acquired; Z90.5 Acquired absence of kidney; N40.0 Benign prostatic hyperplasia without lower urinary tract symptoms; M54.9 Dorsalgia, unspecified | CPT/HCPCS: 51798; 81003; 99212 ==

== ENCOUNTER 2025-09-03 09:55 | Outpatient (AMB) | payer MEDICARE, MEDICAID, SELFPAY ==
[2025-09-03 10:03] VITALS: BP 120/70; PULSE 80; O2SAT 97; BMI 25.5
--- NOTE | 2025-09-03 10:03 | A.OFFVIS_ITS ---
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 Instructional Media Services Technician: Instructional Media Services Technician offered & declined Allergies pravastatin Allergy (Verified 09/03/25 10:13) myalgias Medication List - Last Reconciled 09/03/25 by Alejandrina Pena MD albuterol sulfate 90 mcg/actuation 2 puffs inhalation Q6H PRN bisacodyl 5 mg PO ONCE 1 day doxazosin 4 mg PO BEDTIME fluticasone furoate-vilanterol 100-25 mcg/dose (Breo Ellipta) 1 inh inhalation DAILY gabapentin 600 mg PO TID lisinopril 40 mg PO DAILY naloxone 4 mg/actuation intranasal oxycodone mg PO polyethylene glycol 3350 (Miralax) 238 grams PO ONCE rosuvastatin 5 mg PO DAILY tiotropium bromide (Spiriva with HandiHaler) 1 cap inhalation DAILY 30 days Do you need a note to return to daycare/school/sports/work: No HPI HPI Asthma/Colonoscopy: Details: 54 YEARS OLD GENTLEMAN IS HERE FOR FOLLOW-UP AFTER 6 MONTHS. HE IS BEING TREATED FOR MODERATELY SEVERE OBSTRUCTIVE AIRWAY DISORDER. HE IS DOING VERY WELL WITH HIS CURRENT REGIMEN INCLUDING BREO ELLIPTA AND SPIRIVA HANDIHALER. HE HARDLY NEEDS TO USE ANY RESCUE INHALER. HE HAS BEEN DOING MORE EXERCISES AND HAS LOST ABOUT 8-9 LB OF WEIGHT. PATIENT IS TO UNDERGO COLONOSCOPY, AND THE DATE IS PENDING. [facility] Medical History Colon cancer screening Ex-smoker for less than 1 year Pulmonary nodule Kidney cyst, acquired COPD (chronic obstructive pulmonary disease) Smoker Surgical History History of lumbar fusion History of appendectomy (~10/1998) History of partial nephrectomy (~09/1998) Social History Patient Tobacco Use Status: Former Tobacco user Tobacco use type: Cigarette Cigarette Packs Per Day: 0.5 Cigarettes Per Day: 7 Years Smoked: 36 (onset 14, 1ppd x 36yr 35+PYH) Review of Systems Const All systems reviewed & are unremarkable except as noted in HPI and below Denies snoring Eyes Reports no additional complaints ENT Reports no additional complaints Card Denies chest pain, Denies irregular heart rhythm, Denies leg edema and Reports dyspnea on exertion (MILD) Resp Reports cough, Reports dyspnea on exertion (MILD), Denies snoring and Denies wheezing GI Reports no additional complaints Reports no additional complaints Musc Reports no additional complaints Skin/Breast Reports system reviewed and no additional complaints, except as documented Neuro Reports no additional complaints Endo Reports no additional complaints Aller/Immun Reports no additional complaints and Denies wheezing Physical Exam Vital Signs: Last Vital Signs Pulse 80 09/03/25 10:03 BP 120/70 09/03/25 10:03 Pulse Ox 97 09/03/25 10:03 Oxygen Delivery Method Room Air 09/03/25 10:03 BMI result Body Mass Index 25.5 Const General: comfortable, no acute distress, alert and awake Orientation/consciousness: patient oriented x3 HEENT Head: Yes normal to inspection General nose exam: No nasal polyps present and No nasal discharge present Face and sinus: Yes sinuses nontender Mouth: oropharynx normal Throat: Yes posterior oropharynx normal Eyes General: appearance normal, both eyes and all related structures Neck Neck: Yes normal visual inspection, Yes no lymphadenopathy, Yes trachea midline and Yes no JVD Thyroid: Thyroid normal Chest Chest palpation & inspection: normal inspection of the chest, normal palpation of entire chest wall and no tenderness Resp Other: Percussion note resonant, has equal breath sounds on both sides ,slightly prolonged expiratory phase. No wheezes or rhonchi are heard. Cardio Palpation: normal PMI Rate: regular rate Rhythm: regular rhythm Heart sounds: no gallops and no murmurs GI Palpation (GI): Soft to palpation, nontender, No hepatosplenomegaly present and no masses Auscultation: normal bowel sounds Back/Spine/Pelvis Thoracic/Lumbar Spine: thoracic and lumbar spine normal to inspection, thoraco- lumbar ROM limited and thoraco-lumbar spasm Skin General skin exam: no rashes or lesions noted Neuro General: patient oriented x3 and no focal motor deficits Cranial nerves: Yes CN's II-XII intact bilaterally Extrem General: Yes normal to inspection, Yes no clubbing, cyanosis or edema and Yes no calf tenderness Psych Appearance: grossly normal and well kempt Speech and movement: Normal speech and movement present Assessment & Plan Assessment & Plan (1) Smoker: Comment: HISTORY OF SMOKING SINCE AGE 14. HE QUIT SMOKING IN 2022 AND LUCKILY HAS NOT GONE BACK TO SMOKING. Code(s): F17.200 - Nicotine dependence, unspecified, uncomplicated Category: Social Hx Plan: COMMENDED FOR NOT GOING BACK TO SMOKING. (2) COPD (chronic obstructive pulmonary disease): Comment: HE HAS MODERATELY SEVERE OBSTRUCTIVE AIRWAY DISORDER. Relatively asymptomatic since he quit smoking in 2022 . SPIROMETRY DOES CONFIRM MODERATELY SEVERE OBSTRUCTIVE AIRWAY DISORDER BUT THE FLOW VOLUMES ARE SLIGHTLY IMPROVED SINCE 2022. Code(s): J44.9 - Chronic obstructive pulmonary disease, unspecified Category: Medical Plan: CONTINUE USING BREO 100-251 INHALATION DAILY SPIRIVA HANDIHALER 1 INHALATION DAILY . (3) Lung nodule seen on imaging study: Comment: Patient has a pulmonary nodule in right lower lobe 1.8 x 1.7 CMs . Has had navigational transbronchial biopsy , which was negative for neoplasm. He is being followed by Dr. Neff . Code(s): R91.1 - Solitary pulmonary nodule Category: Medical Plan: CONTINUE ONGOING FOLLOW-UP FOR THE PULMONARY NODULE Plan * FAR COLONOSCOPY PROCEDURE IS CONCERNED, I THINK FROM PULMONARY POINT OF VIEW THERE IS NO CONTRAINDICATION. Coding Level of Care Code Est Pt Level 3 (36607) Diagnoses Smoker F17.200 COPD (chronic obstructive pulmonary disease) J44.9 Lung nodule seen on imaging study R91.1
== END 2025-09-03 10:14 | disposition home or self-care (01) ==
LOC: HO.HPS 09:56
PROVIDERS: PCP Family Medicine; Visit Provider Internal Medicine
DX: F17.200 Nicotine dependence, unspecified, uncomplicated (principal); J44.9 Chronic obstructive pulmonary disease, unspecified; R91.1 Solitary pulmonary nodule
CPT/HCPCS: 99213

== ENCOUNTER → 2025-09-03 09:55 | Outpatient (BNVA) | payer MEDICARE, MEDICAID, SELFPAY | PROVIDERS: PCP Family Medicine; Visit Provider Internal Medicine | DX: J44.9 Chronic obstructive pulmonary disease, unspecified (principal); R91.1 Solitary pulmonary nodule; Z79.51 Long term (current) use of inhaled steroids; Z87.891 Personal history of nicotine dependence | CPT/HCPCS: 99212 ==